=== PATIENT | male | born 1965 | race Caucasian/White ===

== ENCOUNTER → 2016-09-03 | Outpatient (CLI) | payer OTHER ==
--- NOTE | 2016-09-03 09:20 | MR ---
EXAMINATION TYPE: MR lumbar spine wo con DATE OF EXAM: 09/03/2016 8:14 AM COMPARISON: NONE HISTORY: spinal stenosis, back pain TECHNIQUE: Multiplanar, multisequence images of the lumbar spine were acquired. L1-L2: Normal disc appearance without desiccation. No herniation, protrusion or disc bulging. No ca nal stenosis is present. Foramina are patent bilaterally. L2-L3: Mild decreased signal ossified compatible degenerative disc disease. Posterior disc bulging wi th mild effacement of the ventral thecal sac. No evidence for herniation protrusion or central stenos is. Foramina are patent. L3-L4: Mild decreased signal ossified compatible degenerative disc disease. Posterior disc bulging wi th mild effacement of the ventral thecal sac. No evidence for herniation protrusion or central stenos is. Foramina are patent. L4-L5: Mild disc desiccation noted. Posterior disc bulge with greater left paracentral component wher e I cannot exclude a protrusion. Left lateral recess stenosis and mild left foraminal encroachment. N o evidence for central stenosis. L5-S1: Moderate to severe disc desiccation. Posterior disc bulge with annular tear. Effacement of the ventral thecal sac. No evidence for lateral recess stenosis or central stenosis. Facet joint arthrop athy resulting in right-sided foraminal encroachment. Lumbar segments are intact. No paraspinal masses are identified. Conus medullaris has a normal appe arance. Scattered ventral spondylosis. IMPRESSION: 1. Multilevel degenerative disc disease. 2. Multilevel disc bulging with the small left paracentral protrusion difficult to exclude at L4-5. S ee above.
== END | disposition home or self-care (01) ==
LOC: RADMRIMAIN 07:23
PROVIDERS: ATTEND Family Medicine
DX: M51.36 Other intervertebral disc degeneration, lumbar region (principal)
CPT/HCPCS: 72148

== ENCOUNTER → 2017-02-18 | Outpatient (CLI) | payer OTHER ==
--- NOTE | 2017-02-19 08:09 | CONS ---
DATE OF CONSULT: 02/18/17 HISTORY OF PRESENT ILLNESS/SLEEP WAKE EVALUATION: 51 -year-old gentleman has been evaluated in the sleep center for obstructive sleep apnea/hypopnea syndrome and significant excessive daytime sleepiness. The patient has been diagnosed with obstructive sleep apnea about 12 years ago in different institution. Since that time, he is on treatment with BIPAP. Last BIPAP titration done about two years. Presently he is on treatment with BIPAP at the pressure 14/7. For about the last nine months, he developed feeling of exertion even while has continued to use his BIPAP. No snoring with the machine. He wakes up from sleep up to five times with one episode of nocturia. The patient has restless leg symptoms. He also has positive history of kicking at night. In the morning he wakes up tired. Difficulties to pay attention, problems with memory, irritability, depression and anxiety. Lawrence sleep scale significantly increased to 12. SLEEP SCHEDULE: FALLING ASLEEP: DURING SLEEP: DURING THE DAY/WAKE STATE: Medications: 1. Buspirone. 2. Cymbalta. 3. Aspirin. 4. Metformin. 5. Amlodipine. PAST MEDICAL HISTORY: Significant for hypertension, anxiety, depression, diabetes mellitus. PAST SURGICAL HISTORY: Status post right inguinal hernia repair. History of multiple nasal fractures. FAMILY HISTORY: Hypertension, heart problems, hyperlipidemia, sleep apnea, snoring, headaches, cancer, diabetes, thyroid problem, restless legs. SOCIAL HISTORY: Negative for smoking. Alcohol consumption rarely. REVIEW OF SYSTEMS: Multiple awakenings from sleep five times, tiredness and sleepiness during the day. No fevers. No double vision. No recent chest pain. No shortness of breath. No abdominal pain. No bleeding episodes. No blood in urine. No seizure episodes. PHYSICAL EXAM: GENERAL: A pleasant 51 -year-old gentleman without any distress. VITAL SIGNS: BP 152/85, HR 94, RR 16, height 5 feet 10 inches, weight 265, body mass index 38.0. Neck 18 inches in circumferences. Temperature 98.0. Oxygen saturation on room air 94%. HEENT: PERRLA, EOMI. Evaluation of oropharynx shows extremely low position of soft palate. Mallampati 4. Restriction of nasal breathing significantly on both sides. NECK: Supple. No JVD. Thyroid is not palpable. LUNGS: Clear to auscultation and percussion. Good air exchange. No wheezing or rhonchi. HEART: S1, S2 regular. No murmurs, gallops or rubs. ABDOMEN: Obese. Soft, nontender. Bowel sounds are preset. No organomegaly appreciated. EXTREMITIES: No clubbing or cyanosis. SLAB POLISHER: Awake, alert and oriented times three. Cranial nerves 2 to 7 intact. There is no fasciculation or atrophy noted. No focal deficits observed. IMPRESSION: 1. History of obstructive sleep apnea/hypopnea syndrome for 12 years on treatment with BIPAP. The patient developed sleepiness and tiredness during the day. He has multiple awakenings from sleep while on BIPAP. Extremely low soft palate. Lawrence sleep scale 12. 2. Symptoms of restless legs and periodic limb movements with kicking at night. Periodic limb movements. 3. Obesity. 4. History of anxiety. 5. History of depression. 6. Hypertension. Blood pressure slightly increased today ( ) patient took his medication. 7. Diabetes mellitus. 8. Status post right inguinal hernia repair. 9. Status post multiple nasal fracture and presently very significant restriction of nasal breathing. PLAN: 1. BIPAP titration for reevaluation of effective BIPAP pressure at the present time also to check for periodic limb movements during the sleep. 2. Losing weight. 3. Sleep hygiene with regular time in bed for at least 8 hours. 4. No driving if patient feels any sleepiness. Patient is aware of civil and criminal liability for unsafe driving. Thank you for referring this patient for consultation. Sincerely, Jaspal Castellanos MD, PhD, FAASM Diplomat of [place] [employer]. Sleep Medicine Board by [place] [employer] [place] [employer] Typesetting Machine Operator/Tender of [facility] [place] [facility]
== END ==
LOC: SLEEP 14:41
PROVIDERS: ATTEND Internal Medicine
DX: G47.33 Obstructive sleep apnea (adult) (pediatric) (principal); E66.9 Obesity, unspecified; F41.9 Anxiety disorder, unspecified; F32.9 Major depressive disorder, single episode, unspecified; G47.61 Periodic limb movement disorder; I10 Essential (primary) hypertension; E11.9 Type 2 diabetes mellitus without complications; Z98.890 Other specified postprocedural states; Z79.899 Other long term (current) drug therapy; Z79.82 Long term (current) use of aspirin; Z79.84 Long term (current) use of oral hypoglycemic drugs
CPT/HCPCS: 99211

== ENCOUNTER → 2017-06-16 | Outpatient (CLI) | payer OTHER | END | disposition home or self-care (01) | LOC: SLEEP 16:06 | PROVIDERS: ATTEND Internal Medicine | DX: G47.33 Obstructive sleep apnea (adult) (pediatric) (principal) ==

== ENCOUNTER → 2017-07-24 | Outpatient (CLI) | payer OTHER ==
[2017-07-26 19:13] LABS: Estrogens Total 186 pg/mL
== END | disposition home or self-care (01) ==
LOC: LABWHC1 09:01
PROVIDERS: ATTEND Family Medicine
DX: R53.83 Other fatigue (principal); R79.89 Other specified abnormal findings of blood chemistry; E66.9 Obesity, unspecified; M79.1 Myalgia
CPT/HCPCS: 36415; 82397; 82533; 82672; 84144; 84305; 84402; 84403

== ENCOUNTER 2018-01-22 16:28 | Inpatient (IN) | payer OTHER ==
[2018-01-22] MEDS ORDERED: NITROGLYCERIN SL TABS 0.4 MG TAB SUBLINGUAL STA (16:53)
[2018-01-22] MEDS ORDERED: SODIUM CHLORIDE 0.9% 1,000 ML IV STA (16:53)
[2018-01-22 17:11] LABS: Basophils % (A) 0 %; Eosinophils # (A) 0.4 k/uL (0-0.7); Eosinophils % (A) 5 %; HCT 47.5 % (39.0-53.0); HGB 15.2 gm/dL (13.0-17.5); Lymphocytes # (A) 0.8 k/uL (1.0-4.8); Lymphocytes % (A) 12 %; MCH 26.2 pg (25.0-35.0); MCHC 32.1 g/dL (31.0-37.0); MCV 81.5 fL (80.0-100.0); Mean Platelet Volume 5.9; Monocytes # (A) 0.6 k/uL (0-1.0); Monocytes % (A) 8 %; Neutrophils # (A) 5.1 k/uL (1.3-7.7); Neutrophils % (A) 72 %; Platelet Count 260 k/uL (150-450); RBC 5.82 m/uL (4.30-5.90); WBC 7.1 k/uL (3.8-10.6)
[2018-01-22 17:23] LABS: ALT 50 U/L (21-72); AST 37 U/L (17-59); Albumin 4.3 g/dL (3.5-5.0); Alkaline Phosphatase 85 U/L (38-126); Amylase 54 U/L (30-110); Anion Gap 10 mmol/L; Blood Urea Nitrogen 19 mg/dL (9-20); Calcium 9.6 mg/dL (8.4-10.2); Carbon Dioxide 22 mmol/L (22-30); Chloride 107 mmol/L (98-107); Glucose 105 mg/dL (74-99); Lipase 50 U/L (23-300); Magnesium 1.8 mg/dL (1.6-2.3); Potassium 4.6 mmol/L (3.5-5.1); Sodium 139 mmol/L (137-145); Total Bilirubin 0.4 mg/dL (0.2-1.3); Total Protein 7.6 g/dL (6.3-8.2)
[2018-01-22] MEDS ORDERED: HEPARIN SODIUM,PORCINE 5,000 UNIT/ML 1 ML VIAL IV ONE (17:25)
[2018-01-22] MEDS ORDERED: NITROGLYCERIN OINT 1 INCH/GM PACKET TOPICAL STA (17:26)
[2018-01-22 17:29] LABS: D-Dimer 0.64 mg/L FEU (<0.60); Partial Thromboplastin Time 23.2 sec (22.0-30.0); Prothrombin Time 9.7 sec (9.0-12.0)
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
--- NOTE | 2018-01-22 17:36 | XR ---
EXAMINATION TYPE: XR chest 2V DATE OF EXAM: 01/22/2018 COMPARISON: NONE HISTORY: Chest pain TECHNIQUE: Frontal and lateral views of the chest are obtained. FINDINGS: There is no focal air space opacity, pleural effusion, or pneumothorax seen. The cardiac silhouette size is upper limits of normal. The osseous structures are intact. Mild multilevel degen erative changes of the thoracic spine are noted. IMPRESSION: No acute cardiopulmonary process.
[2018-01-22] MEDS: HEPARIN SOD,PORK IN 0.45% NACL 25,000 UNIT in 0.45% NACL 1 500ML.BAG IV SCH (17:49)
[2018-01-22 17:53] LABS: Creatine Kinase MB 1.3 ng/mL (0.0-2.4)
[2018-01-22 17:55] LABS: Troponin I 0.04 ng/mL (0.000-0.034)
--- NOTE | 2018-01-22 18:33 | CT ---
EXAMINATION TYPE: CT angio chest DATE OF EXAM: 01/22/2018 COMPARISON: NONE HISTORY: Mid chest pain since last night. CT DLP: 517.4 mGycm. Automated Exposure Control for Dose Reduction was Utilized. CONTRAST: CTA scan of the thorax is performed with IV Contrast, patient injected with 59 mL of Isovue 370, pulm onary embolism protocol. MIP Images are created on CT scanner and reviewed. FINDINGS: LUNGS: There is minimal bibasilar subsegmental dependent atelectasis. Otherwise the lungs are grossly clear, there is no concerning parenchymal mass or nodule identified. There is no pleural effusion or pneumothorax seen. The tracheobronchial tree is patent. MEDIASTINUM: There is satisfactory enhancement of the pulmonary artery and its branches, there is no CT evidence for pulmonary embolism. Numerous mediastinal lymph nodes and hilar lymph nodes are upper limits of normal measuring up to 1.0 cm in short axis each. No cardiomegaly or pericardial effusion i s seen. Mild coronary artery calcifications are noted. Main pulmonary artery and ascending thoracic a eliot are within normal limits of size. OTHER: There is incidental note of splenomegaly as the spleen measures 16.2 cm in longitudinal dimens ion. Moderate multilevel degenerative changes of the thoracic spine are noted. IMPRESSION: 1. No evidence of pulmonary embolus. 2. Numerous mediastinal and hilar lymph nodes that are upper limits of normal. These could be reactiv e in the recent event of postinflammatory or postinfectious process, however correlation with serum l aboratory values is recommended to exclude lymphoproliferative disorder and additionally short-term f ollow-up could be performed to ensure resolution of the mediastinal adenopathy. 3. Bibasilar atelectasis with no focal consolidation to suggest pneumonia.
[2018-01-22] MEDS ORDERED: NITROGLYCERIN SL TABS 0.4 MG TAB SUBLINGUAL PRN (19:12)
[2018-01-22 20:36] LABS: Glucose,Whole Blood 97 mg/dL (75-99)
[2018-01-22] MEDS: INSULIN ASPART 100 UNIT/ML 1 ML 10 ML VIAL SQ SCH (20:51)
[2018-01-22] MEDS: DULoxetine HCL 60 MG CAPSULE.DR PO SCH (20:53)
[2018-01-22] MEDS: busPIRone HCl 5 MG TAB PO SCH (20:53)
[2018-01-22] MEDS: metFORMIN 500 MG TAB PO SCH (20:53)
[2018-01-23 00:47] LABS: Creatine Kinase MB 4.2 ng/mL (0.0-2.4)
[2018-01-23 00:48] LABS: Troponin I 0.222 ng/mL (0.000-0.034)
[2018-01-23 05:26] LABS: Glucose,Whole Blood 117 mg/dL (75-99)
[2018-01-23] MEDS: INSULIN ASPART 100 UNIT/ML 1 ML 10 ML VIAL SQ SCH ×4 (05:41→22:42)
[2018-01-23 06:40] LABS: Cholesterol 187 mg/dL (<200); HDL Cholesterol 29 mg/dL (40-60); Triglycerides 428 mg/dL (<150)
[2018-01-23 07:04] LABS: Creatine Kinase MB 5.8 ng/mL (0.0-2.4); Troponin I 0.255 ng/mL (0.000-0.034)
[2018-01-23] MEDS ORDERED: HEPARIN SODIUM,PORCINE 5,000 UNIT/ML 1 ML VIAL IV PRN (08:34)
[2018-01-23] MEDS ORDERED: ASPIRIN 325 MG TAB PO SCH (09:00)
[2018-01-23] MEDS ORDERED: amLODIPine 10 MG TAB PO SCH (09:00)
[2018-01-23] MEDS ORDERED: NON-FORMULARY DRUG (Aspirin Ec 81 MG) PO SCH (09:00)
[2018-01-23] MEDS ORDERED: ASPIRIN 81 MG PO SCH (09:00)
[2018-01-23] MEDS ORDERED: NITROGLYCERIN SL TABS 0.4 MG TAB SUBLINGUAL PRN ×2 (09:27→13:26)
[2018-01-23] MEDS ORDERED: SODIUM CHLORIDE 0.9% 1,000 ML in EMPTY BAG 1 BAG IV ONE (09:27)
[2018-01-23] MEDS ORDERED: ALPRAZolam 0.5 MG TAB PO PRN (09:27)
[2018-01-23] MEDS ORDERED: ASPIRIN 325 MG TAB PO STA (09:29)
[2018-01-23] MEDS ORDERED: ATORVASTATIN 80 MG TAB PO STA (09:30)
[2018-01-23] MEDS: DULoxetine HCL 30 MG CAPSULE.DR PO SCH (09:35)
[2018-01-23] MEDS: busPIRone HCl 5 MG TAB PO SCH ×2 (09:35→20:31)
--- NOTE | 2018-01-23 09:35 | P.PN ---
Progress Note - Text this is an addendum to the dictated cardiology consultation. The patient presents with symptoms of chest discomfort radiating to the left arm associated with diaphoresis according with physical activity. the patient has a history of diabetes, hypertension. He has no prior history of documented CAD and has a history of paroxysmal atrial fibrillation and has been followed by Dr. Baker in the past. His EKG showed dynamic ST segment depression on the lateral leads during the chest pain and he has mild troponin elevation. He is pain-free at this time. the patient presents with symptoms consistent with new onset angina pectoris and his lab data is consistent with non-STEMI. I have recommended to proceed with cardiac catheterization and angioplasty if needed. The rationale behind the procedure, and the risk and complications were discussed with him and his . depending on his progress further recommendations will be made . thank you for this consult we will follow with you.
--- NOTE | 2018-01-23 09:38 | P.CRDCN ---
History of Present Illness History of present illness: Mr. Bo is a pleasant 52-year-old male past medical history significant for diabetes, hypertension, paroxysmal atrial fibrillation and obesity. He follows with Dr. Duncan in the office. We have been asked to see him in consultation for symptoms of chest pain. He states he started feeling mild chest discomfort around approximately Wednesday of last week. The symptoms at that time were vague. Yesterday he felt a much more intense pain in the mid- sternal region that felt like a horse was kicking him in the chest. The pain radiated to his left upper arm and into his left neck. The pain lasted for approximately 15 minutes prior to arrival. The symptoms started yesterday with exertion while doing activities around the house. His symptoms subsided with rest. He denies palpitations, vomiting, diaphoresis or dizziness. He denies PND or orhopnea. He has had reoccurrence of chest pain this morning. Repeat EKG while having chest pain was unremarkable. EKG on arrival reveals sinus mechanism with ST in anterior-lateral leads, improvement on repeat EKG this morning. Chest xray negative for an acute cardiopulmonary process. Laboratory data reviewed, hemoglobin 15.2, platelets 260, d-dimer 0.64, sodium 139, potassium 4.6, creatinine 0.9, magnesium 1.8, troponin 0.04, 0.222, 0.255 with elevated CK-MBs respectively. Current cardiac medications include Norvasc 10 mg daily, Rythmol 150 mg when necessary and he feels palpitations indicative of atrial fibrillation, aspirin 81 mg daily. Her last office note he also takes some/HCTZ. He states he does take this and forgot to mention yesterday when obtaining his home medications. Old records were reviewed from the office and revealed preserved LV systolic function the most recent echocardiogram in 2011. He does have evidence of nonspecific upsloping ST depression noted in the lateral leads EKG May 2017. Review of Systems At the time of my exam: CONSTITUTIONAL: Denies fever. Denies chills. EYES: Denies blurred vision. Denies vision changes. Denies eye pain. EARS, NOSE, MOUTH & THROAT: Denies headache. Denies sore throat. Denies ear pain. CARDIOVASCULAR: Complains of chest pain. Denies shortness of breath. Denies orthopnea. Denies PND. Denies palpitations. RESPIRATORY: Denies cough. GASTROINTESTINAL: Denies abdominal pain. Denies diarrhea. Denies constipation. Denies nausea. Denies vomiting. MUSCULOSKELETAL: Denies myalgias. INTEGUMENTARY: Denies pruitis. Denies rash. NEUROLOGIC: Denies numbness. Denies tingling. Denies weakness. PSYCHIATRIC: Denies anxiety. Denies depression. ENDOCRINE: Denies fatigue. Denies weight change. Denies polydipsia. Denies polyurina. GENITOURINARY: Denies burning, hematuria or urgency with micturation. HEMATOLOGIC: Denies history of anemia. Denies bleeding. Past Medical History Past Medical History: Atrial Fibrillation, Diabetes Mellitus Additional Past Medical History / Comment(s): tachycardia, kidney stones History of Any Multi-Drug Resistant Organisms: None Reported Past Surgical History: Back Surgery, Hernia Repair Past Psychological History: No Psychological Hx Reported Smoking Status: Never smoker Past Alcohol Use History: None Reported Past Drug Use History: None Reported Medications and Allergies Home Medications Medication Instructions Recorded Confirmed Type Aspirin EC [Ecotrin Low Dose] 81 mg PO DAILY 01/22/18 01/22/18 History DULoxetine HCL [Cymbalta] 30 mg PO QAM 01/22/18 01/22/18 History DULoxetine HCL [Cymbalta] 60 mg PO HS 01/22/18 01/22/18 History amLODIPine BESYLATE [Norvasc] 10 mg PO DAILY 01/22/18 01/22/18 History busPIRone HCL 5 mg PO BID 01/22/18 01/22/18 History metFORMIN HCL [Glucophage] 500 mg PO BID 01/22/18 01/22/18 History Allergies Allergy/AdvReac Type Severity Reaction Status Date / Time No Known Allergies Allergy Verified 01/22/18 17:14 Physical Exam Vitals: Vital Signs Temp Pulse Pulse Resp BP BP Pulse Ox 01/23/18 08:15 98.3 F 87 18 131/81 100 01/23/18 03:49 98.9 F 84 18 118/76 96 01/23/18 03:46 86 18 01/23/18 00:00 98.2 F 86 18 141/80 95 01/22/18 19:27 98.4 F 103 H 18 136/79 94 L 01/22/18 19:12 94 L 01/22/18 17:37 96 18 147/89 97 01/22/18 16:32 98.1 F 105 H 20 170/99 99 Intake and Output 01/22/18 01/23/18 01/23/18 22:59 06:59 14:59 Intake Total 80 160.365 181.952 Output Total 175 350 Balance -95 -189.635 181.952 Intake: Intake, IV Titration 80 160.365 181.952 Amount Heparin Sod,Pork in 0.45% 40 160.365 181.952 NaCl 25,000 unit In 0.45 % NaCl 1 500ml.bag @ 8.7 UNITS/KG/HR 19.88 mls/hr IV .Q24H THOR Rx#: [id number] Sodium Chloride 0.9% 1, 40 000 ml @ 20 mls/hr IV . Q24H STA Rx#:[id number] Output: Urine 175 350 Other: Voiding Method Toilet Toilet Urinal Urinal Weight 114 kg 115.3 kg Blood pressure 131/81 heart rate 87 afebrile maintaining oxygen saturation GENERAL: This is a 52-year-old male in no apparent distress at the time of my examination. HEENT: Head is atraumatic, normocephalic. Pupils are equal, round. Sclerae anicteric. Conjunctivae are clear. Mucous membranes of the mouth are moist. Neck is supple. There is no jugular venous distention. No carotid bruit is heard. LUNGS: Clear to auscultation no wheezes, rales or rhonchi. No chest wall tenderness is noted on palpation or with deep breathing. HEART: Regular rate and rhythm without murmurs, rubs or gallops. S1 and S2 heard. ABDOMEN: Soft, nontender. Bowel sounds are heard. No organomegaly noted. EXTREMITIES: No evidence of peripheral edema and no calf tenderness noted. VASCULAR: Radial and dorsalis pedis pulses palpated, no evidence of clubbing. NEUROLOGIC: Patient is awake, alert and oriented x3. Results 01/22/18 17:00 01/22/18 17:00 Cardiac Enzymes 01/22/18 01/22/18 01/22/18 Range/Units 17:00 17:00 23:45 AST 37 (17-59) U/L CK-MB (CK-2) 1.3 4.2 H* (0.0-2.4) ng/mL Troponin I 0.040 H* 0.222 H* (0.000-0.034) ng/mL 01/23/18 Range/Units 05:22 AST (17-59) U/L CK-MB (CK-2) 5.8 H* (0.0-2.4) ng/mL Troponin I 0.255 H* (0.000-0.034) ng/mL Coagulation 01/22/18 01/22/18 01/23/18 Range/Units 17:00 23:45 07:43 PT 9.7 (9.0-12.0) sec APTT 23.2 25.6 27.6 (22.0-30.0) sec Lipids 01/23/18 Range/Units 05:22 Triglycerides 428 H (<150) mg/dL Cholesterol 187 (<200) mg/dL HDL Cholesterol 29 L (40-60) mg/dL CBC 01/22/18 Range/Units 17:00 WBC 7.1 (3.8-10.6) k/uL RBC 5.82 (4.30-5.90) m/uL Hgb 15.2 (13.0-17.5) gm/dL Hct 47.5 (39.0-53.0) % Plt Count 260 (150-450) k/uL Comprehensive Metabolic Panel 01/22/18 Range/Units 17:00 Sodium 139 (137-145) mmol/L Potassium 4.6 (3.5-5.1) mmol/L Chloride 107 (98-107) mmol/L Carbon Dioxide 22 (22-30) mmol/L BUN 19 (9-20) mg/dL Creatinine 0.90 (0.66-1.25) mg/dL Glucose 105 H (74-99) mg/dL Calcium 9.6 (8.4-10.2) mg/dL AST 37 (17-59) U/L ALT 50 (21-72) U/L Alkaline Phosphatase 85 (38-126) U/L Total Protein 7.6 (6.3-8.2) g/dL Albumin 4.3 (3.5-5.0) g/dL Current Medications Generic Name Dose Route Start Last Admin Trade Name Freq PRN Reason Stop Dose Admin Amlodipine Besylate 10 mg 01/23/18 09:00 Norvasc PO DAILY THOR Aspirin 325 mg 01/23/18 09:00 Aspirin PO DAILY [facility] Buspirone HCl 5 mg 01/22/18 21:00 01/22/18 20:53 Buspar PO 5 mg BID THOR Administration Duloxetine HCl 60 mg 01/22/18 21:00 01/22/18 20:53 Cymbalta PO 60 mg HS THOR Administration Duloxetine HCl 30 mg 01/23/18 09:00 Cymbalta PO QAM [facility] Heparin Sodium (Porcine) 0 unit 01/23/18 08:34 Heparin IV PER PROTOCOL PRN Low PTT Protocol Sodium Chloride 1,000 mls @ 20 mls/hr 01/22/18 16:53 01/22/18 17:00 Saline 0.9% IV 01/23/18 16:52 20 mls/hr .Q24H STA Administration Heparin Sodium/Sodium Chloride 500 mls @ 19.88 mls/hr 01/22/18 17:30 08:31 25,000 unit/ Sodium Chloride IV 15 units/kg/hr .Q24H THOR 34.29 mls/hr Titration Protocol 8.7 UNITS/KG/HR Insulin Aspart 0 unit 01/22/18 21:00 01/23/18 05:41 Novolog SQ Not Given ACHS [facility] Protocol Metformin HCl 500 mg 01/22/18 21:00 01/22/18 20:53 Glucophage PO 500 mg BID THOR Administration Nitroglycerin 0.4 mg 01/22/18 19:12 Nitrostat SUBLINGUAL Q5M PRN Chest Pain Intake and Output 01/22/18 01/23/18 01/23/18 22:59 06:59 14:59 Intake Total 80 160.365 181.952 Output Total 175 350 Balance -95 -189.635 181.952 Intake: Intake, IV Titration 80 160.365 181.952 Amount Heparin Sod,Pork in 0.45% 40 160.365 181.952 NaCl 25,000 unit In 0.45 % NaCl 1 500ml.bag @ 8.7 UNITS/KG/HR 19.88 mls/hr IV .Q24H THOR Rx#: [id number] Sodium Chloride 0.9% 1, 40 000 ml @ 20 mls/hr IV . Q24H STA Rx#:[id number] Output: Urine 175 350 Other: Voiding Method Toilet Toilet Urinal Urinal Weight 114 kg 115.3 kg 01/22/18 17:00 01/22/18 17:00 Assessment and Plan Assessment: ASSESSMENT Acute unstable angina with EKG abnormalities Non-ST elevation VA Hypertension History of atrial fibrillation currently maintaining sinus mechanism PLAN Obtain 2-D echocardiogram and Doppler study to assess cardiac structure and function. We recommend he undergo cardiac catheterization to further assess coronary arteries. I have discussed the risks, benefits and alternative therapies for the above-mentioned procedure and for both sedation/analgesia as well as necessary blood product administration, if indicated, as they pertain to this patient. The patient has indicated understanding and acceptance of the risks and procedures discussed. His is at the bedside and questions have been answered appropriately. He is agreeable to move forward with above stated procedure. Further recommendations to follow based on clinical course. Thank you kindly for this consultation. Nurse Practitioner note has been reviewed, I agree with a documented findings and plan of care. Patient was seen and examined.
[2018-01-23] MEDS: metFORMIN 500 MG TAB PO SCH (09:43)
[2018-01-23 11:13] LABS: Glucose,Whole Blood 105 mg/dL (75-99)
[2018-01-23] MEDS ORDERED: TEMAZEPAM 15 MG CAP PO PRN (11:27)
[2018-01-23] MEDS: HEPARIN SOD,PORK IN 0.45% NACL 25,000 UNIT in 0.45% NACL 1 500ML.BAG IV SCH (11:29)
[2018-01-23] MEDS ORDERED: LIDOCAINE 1% INJ 10MG/ML (20 ML MDV) ONE (12:01)
[2018-01-23] MEDS ORDERED: VERAPAMIL 2.5 MG/ML 2 ML AMP ONE (12:02)
[2018-01-23] MEDS ORDERED: fentaNYL (PF) 50 MCG/ML 2 ML AMP ONE (12:02)
[2018-01-23] MEDS ORDERED: diphenhydrAMINE 50 MG/ML 1 ML VIAL ONE (12:02)
[2018-01-23] MEDS ORDERED: IV FLUID CONTINUATION 1,000 ML IV ONE (12:28)
[2018-01-23] MEDS ORDERED: fentaNYL (PF) 50 MCG/ML 2 ML AMP IV ONE (12:30)
[2018-01-23] MEDS ORDERED: MIDAZOLAM 2 MG/2 ML VIAL ONE (12:35)
[2018-01-23] MEDS ORDERED: LIDOCAINE 1% INJ 10MG/ML (20 ML MDV) SQ ONE (12:35)
[2018-01-23] MEDS ORDERED: VERAPAMIL SYRINGE (5 MG/10 ML) INTRAARTER ONE (12:36)
[2018-01-23] MEDS ORDERED: MIDAZOLAM 2 MG/2 ML VIAL IV ONE (12:37)
[2018-01-23] MEDS ORDERED: BIVALIRUDIN BOLUS 250 MG/50 ML IV ONE (12:45)
[2018-01-23] MEDS ORDERED: BIVALIRUDIN 250 MG in SODIUM CHLORIDE 0.9% 50 ML IV ONE (12:46)
[2018-01-23] MEDS ORDERED: PRASUGREL 10 MG TAB ONE (12:47)
[2018-01-23] MEDS ORDERED: PRASUGREL 10 MG TAB PO ONE (12:47)
[2018-01-23] MEDS ORDERED: NITROGLYCERIN 1000MCG/10ML SYRINGE INTRACORON ONE (12:50)
[2018-01-23] MEDS ORDERED: IOPAMIDOL-370 125ML BTL INJ ONE (12:54)
--- NOTE | 2018-01-23 13:00 | HP ---
HISTORY AND PHYSICAL CHIEF COMPLAINT: Chest pain. HISTORY OF PRESENT ILLNESS: This 52-year-old gentleman with a past history of atrial fibrillation, history of diabetes, tachycardia, history of kidney stones, back surgery, DJD being followed by Dr. Rondon in the outpatient setting was complaining of chest pain which is felt in the anterior part of the chest, which was heavy in character, which was radiating to the both sides of the neck and both arms and the pain has been going on for at least a couple of days on and off and because of increasing pain 10 out of 10, the patient came to [facility] and was admitted for further evaluation and treatment. EKG showed normal sinus rhythm with ST changes and troponins were found to be elevated to 0.25 suggesting non-Q wave myocardial infarction. Patient also had a spiral CT scan of the chest also which showed no evidence of pulmonary embolus, but numerous mediastinal hilar lymphadenopathy and as well as possible bibasilar atelectasis also. There is no history of fever, rigors. No headache, loss of consciousness, seizures. PAST MEDICAL HISTORY: Atrial fibrillation, diabetes, tachycardia, history of kidney stones. MEDICATIONS: Prior to admission: 1. Glucophage 500 mg p.o. b.i.d. 2. Norvasc 10 mg p.o. daily. 3. Cymbalta 60 mg q.h.s. 4. Cymbalta 30 mg q.a.m. 5. Ecotrin 81 mg daily. 6. Buspirone 5 mg p.o. b.i.d. ALLERGIES: None. FAMILY HISTORY: No history of heart disease or strokes in family. SOCIAL HISTORY: No history of smoking. No history of alcohol intake. REVIEW OF SYSTEMS: ENT: No diminished hearing or vision. CARDIOVASCULAR: As mentioned earlier. RESPIRATORY: No cough or hemoptysis, otherwise as mentioned earlier. GI: No nausea. : No dysuria. NERVOUS SYSTEM: No numbness or weakness. ALLERGY/IMMUNOLOGY: No asthma. MUSCULOSKELETAL: As mentioned earlier. HEMATOLOGY: No history of anemia. ENDOCRINE: As mentioned earlier. CONSTITUTIONAL: As mentioned earlier. DERMATOLOGY: Negative. RHEUMATOLOGY: Negative. PSYCHIATRY: As mentioned earlier. PHYSICAL EXAMINATION: Alert and oriented x3. Pulse 91, blood pressure 120/77, respiration 18, temperature 98.2, pulse ox 98% on 2 L. HEENT: Conjunctivae normal. Oral mucosa moist. NECK: No jugular venous distention. No lymph node enlargement. CARDIOVASCULAR: S1, S2. RESPIRATORY: Breath sounds diminished in the bases. No rhonchi. No crackles. ABDOMEN: Soft, nontender. No mass palpable. LEGS: No edema, no swelling. NERVOUS SYSTEM: Higher function as mentioned. Moves all four limbs. No focal motor deficits. LYMPHATICS: No lymphadenopathy in the neck, axillae, groin. SKIN: No ulcer, rash, bleeding. LABS: CBC within normal. D-dimer is 0.64. Troponin 0.22 and 0.255. Triglycerides are 428. ASSESSMENT: 1. Acute non ST-segment elevation myocardial infarction with chest pain. 2. Troponin 0.255. 3. Hyperlipidemia, hypertriglyceridemia. 4. Atrial fibrillation paroxysmal. 5. ST-T changes in the EKG. 6. Diabetes mellitus type 2. 7. History of tachycardia. 8. History of nephrolithiasis. 9. History of back surgery. 10.History of hernia repair. RECOMMENDATION AND DISCUSSION: This 52-year-old gentleman who presented with multiple complications, will monitor the patient closely. Continue the current management and symptomatic treatment. Otherwise at this time I recommend continue with beta blockers antiplatelet agents and monitor electrolytes closely, monitor blood sugars closely. I would also recommend Cardiology consultation. Cardiology is planning cardiac consultation. Repeat labs will be ordered and symptomatic treatment provided. Further recommendations to follow. The patient also had minimal abnormal findings in the CT scan. Recommend close follow up as outpatient with Dr. Rondon in the outpatient setting. MMODL / IJN: [id number] /
[2018-01-23] MEDS ORDERED: IOPAMIDOL-370 100ML BTL INJ ONE (13:08)
[2018-01-23] MEDS ORDERED: RX INFO: IV CONTRAST WAS GIVEN 1 EACH MISC MISCELLANE PRN (13:26)
[2018-01-23] MEDS ORDERED: MAG HYDROX/AL HYDROX/SIMETH 30 ML CUP PO PRN (13:26)
[2018-01-23] MEDS ORDERED: ATROPINE SULFATE 0.1 MG/ML 10ML SYRINGE IV PRN (13:26)
[2018-01-23] MEDS ORDERED: SODIUM CHLORIDE 0.9% 1,000 ML IV SCH (13:30)
[2018-01-23] MEDS: HYDROcodone/APAP 5-325MG 1 EACH TAB PO PRN ×2 (15:30→22:43)
[2018-01-23 16:02] LABS: Appearance,Urine Clear (Clear); Bilirubin,Urine Negative (Negative); Blood,Urine Trace (Negative); Color,Urine Light Yellow; Glucose,Urine (UA) Negative (Negative); Ketones,Urine Negative (Negative); Leukocyte Esterase,Urine Negative (Negative); Mucus,Urine Rare /hpf; Nitrite,Urine Negative (Negative); Protein,Urine Negative (Negative); RBC,Urine 1 /hpf (0-5); Urobilinogen,Urine <2.0 mg/dL (<2.0); WBC,Urine <1 /hpf (0-5)
[2018-01-23 16:16] LABS: Glucose,Whole Blood 113 mg/dL (75-99)
--- NOTE | 2018-01-23 19:27 | CC ---
CARDIAC CATHETERIZATION REPORT Mr. Bo is a 52-year-old male with known history of diabetes, hypertension, hyperlipidemia and a family history of coronary artery disease who presented with new onset angina pectoris and evidence of non ST-segment elevation myocardial infarction. In view of that, recommendation was made regarding cardiac catheterization. The procedures as well as risks and complication were discussed with the patient who is in full understanding and agreement. PROCEDURE: Patient was brought to the cardiac laboratory engineer in a fasting state after receiving fentanyl and Benadryl and achieving moderate conscious sedated state. Using Xylocaine anesthesia and Seldinger technique, a 6-Palestinian sheath was introduced in the right radial artery. Selective right and left coronary angiography performed using 5-Palestinian 3 and half bend right and left Tru catheter. Multiple views of the coronary artery including hemiaxial views were obtained. Following that, angioplasty and stenting was performed. Following that, a 5-Palestinian tight pigtail catheter was introduced in his left ventricle and a 30 degree JOHNSON view of the left ventricle was obtained. Following that, catheter and sheaths were removed. Hemostasis was obtained with deployment of a TR band. There was no immediate complication. The patient was returned to his room in stable condition. CORONARY ANGIOGRAPHY: LEFT MAIN: This is a large-sized vessel bifurcating into the left circumflex, left anterior descending artery, left main coronary artery has no evidence of high-grade stenosis. LEFT ANTERIOR DESCENDING ARTERY: This is a large-sized vessel reaching toward the apex, tapers down distal third, gives rise to a moderately sized diagonal branch in mid segment. The proximal left anterior descending artery is about 30% plaque. There is mild intimal disease in mid segment with a plaque in the distal apical segment. LEFT CIRCUMFLEX: This is a large dominant vessel giving rise to 3 obtuse marginal branches. The third one is large in caliber. It has a branching point. The inferior branch has a long tubular lesion of 50-70%, distally the left PLV has a plaque in the distal segment of about 80%. The vessel, beyond that, is small in caliber. RIGHT CORONARY ARTERY: This is a small nondominant vessel tortuous. In the mid segment of the vessel, there is about a 70% to 80% plaque. The rest of the vessel has no high-grade stenosis. LEFT VENTRICULOGRAM: Left ventriculogram was performed in 30 degree JOHNSON view and revealed normal left ventricular size and systolic function. Ejection fraction 55-60%. There was no significant mitral regurgitation. HEMODYNAMICS: There was no gradient across the aortic valve. The left ventricle end-diastolic pressure was 20 mmHg. CONCLUSION: 1. Critical stenosis involving the proximal left circumflex. 2. Moderate disease involving the third obtuse marginal branch with moderate significant disease in the mid nondominant right coronary artery and mild to moderate disease in the left anterior descending coronary artery. 3. Preserved left ventricular size and systolic function. RECOMMENDATIONS: In view of findings and anatomy, I have recommend proceeding with angioplasty and stenting of the left circumflex. The procedure as well as risks and complications were discussed with the patient who is in full understanding and agreement. MMODL / IJN: [id number] /
--- NOTE | 2018-01-23 19:33 | PTCA ---
PERCUTANEOUSTRANS CORORONARY ANGIOGRAPHY Mr. Bo is a 52-year-old male with a history of hypertension, hyperlipidemia, diabetes mellitus, who presented with symptoms consistent with non ST-segment elevation myocardial infarction, underwent cardiac catheterization and was found to have critical stenosis involving the proximal left circumflex. In view of that, recommendation was made regarding angioplasty and stenting. The procedure, risks and complications were discussed with the patient who is in full understanding and agreement. PROCEDURE: A 6-Kiswahili 3 and half bend FL guiding catheter was introduced into the system. After cannulating the left main, a 0.014 balanced medium weight J-wire was advanced across the lesion, positioned distally. Then a 3.5 x 50 mm Xience Alpine stent was deployed. It was dilated at 16 atmospheres. Following that, the balloon was removed and a 4.0 x 12 mm NC Trek balloon was advanced and one inflation at 14 atmospheres was done. Following that, the balloon and guidewire were withdrawn back in the guiding catheter. Images were obtained and repeated. Those images revealed stable successful stenting. At that point, the guiding catheter, the balloon and the guidewire were removed and left ventriculogram was performed. Following that the catheter and sheaths were removed. Hemostasis was obtained with deployment of a TR band. There was no immediate complication. The patient was returned to his room in stable condition. Of note, he had chest discomfort and EKG changes with the inflation that resolved at the end of the procedure. He received Angiomax per protocol as well as oral loading dose off Effient. He also received intra-arterial verapamil. RESULTS: Successful stenting of the proximal left circumflex with reduction of stenosis from 99% to 0%. RECOMMENDATIONS: The patient will be continued on aspirin, Effient, and statin. Aggressive coronary risk factor modifications will be continued. Those findings and recommendations were discussed with the patient and his family who are in full understanding and agreement. Duration of procedure: 36 minutes. MMODL / IJN: [id number] /
[2018-01-23] MEDS: DULoxetine HCL 60 MG CAPSULE.DR PO SCH (20:31)
[2018-01-23] MEDS: METOPROLOL TARTRATE 25 MG TAB PO SCH (20:33)
[2018-01-23] MEDS ORDERED: ZOLPIDEM 5 MG TAB PO PRN (21:00)
[2018-01-23 21:23] LABS: Glucose,Whole Blood 105 mg/dL (75-99)
[2018-01-23] MEDS: ALPRAZolam 0.25 MG TAB PO PRN (22:46)
[2018-01-24 06:03] VITALS: RESP 18
[2018-01-24 06:25] LABS: Glucose,Whole Blood 144 mg/dL (75-99)
[2018-01-24] MEDS: INSULIN ASPART 100 UNIT/ML 1 ML 10 ML VIAL SQ SCH ×2 (07:12→12:24)
[2018-01-24 07:26] LABS: Anion Gap 9 mmol/L; Blood Urea Nitrogen 17 mg/dL (9-20); Carbon Dioxide 25 mmol/L (22-30); Chloride 104 mmol/L (98-107); Glucose 128 mg/dL (74-99); Potassium 4.2 mmol/L (3.5-5.1); Sodium 138 mmol/L (137-145)
[2018-01-24] MEDS ORDERED: PANTOPRAZOLE 40 MG TABLET PO SCH (07:30)
[2018-01-24] MEDS ORDERED: ATORVASTATIN 80 MG TAB PO SCH (09:00)
[2018-01-24] MEDS ORDERED: amLODIPine 5 MG TAB PO SCH (09:00)
[2018-01-24] MEDS ORDERED: ASPIRIN 81 MG PO SCH ×2 (09:00)
[2018-01-24] MEDS ORDERED: LOSARTAN 25 MG TAB PO SCH (09:00)
[2018-01-24] MEDS ORDERED: PRASUGREL 10 MG TAB PO SCH (09:00)
[2018-01-24] MEDS: busPIRone HCl 5 MG TAB PO SCH (09:11)
[2018-01-24] MEDS: DULoxetine HCL 30 MG CAPSULE.DR PO SCH (09:12)
[2018-01-24] MEDS: METOPROLOL TARTRATE 25 MG TAB PO SCH (09:12)
[2018-01-24 10:37] VITALS: BMI 36.6
--- NOTE | 2018-01-24 10:45 | ECHOF ---
Referral Reason: MEASUREMENTS -------- HEIGHT: 180.3 cm WEIGHT: 118.8 kg BP: 132/76 RVIDd: 3.3 cm (< 3.3) IVSd: 1.6 cm (0.6 - 1.1) LVIDd: 3.6 cm (3.9 - 5.3) LVPWd: 1.8 cm (0.6 - 1.1) IVSs: 1.7 cm LVIDs: 2.7 cm LVPWs: 2.1 cm LAESV Index (A-L): 14.71 ml/m Ao Diam: 3.4 cm (2.0 - 3.7) AV Cusp: 2.3 cm (1.5 - 2.6) LA Diam: 3.9 cm (2.7 - 3.8) MV EXCURSION: 19.783 mm (> 18.000) MV EF SLOPE: 117 mm/s (70 - 150) EPSS: 1.0 cm MV E Olegario: 0.81 m/s MV DecT: 189 ms MV A Olegario: 0.70 m/s MV E/A Ratio: 1.15 RAP: 5.00 mmHg RVSP: 14.52 mmHg FINDINGS -------- Sinus rhythm. This was a technically good study. The left ventricular size is normal. There is moderate concentric left ventricular hypertrophy. O verall left ventricular systolic function is low-normal with, an EF between 50 - 55 %. The right ventricle is normal in size and function. Normal LA size by volume 22+/-6 ml/m2. The right atrium is normal in size. Aortic valve is trileaflet and is mildly thickened. The mitral valve leaflets are mildly thickened. There is trace mitral regurgitation. Trace tricuspid regurgitation present. The right ventricular systolic pressure, as measured by Dopp ler, is 14.52mmHg. Pulmonic valve appears structurally normal. The aortic root size is normal. Normal inferior vena cava with normal inspiratory collapse consistent with estimated right atrial pre ssure of 5 mmHg. The pericardium is normal. CONCLUSIONS -------- 1. Sinus rhythm. 2. This was a technically good study. 3. The left ventricular size is normal. 4. There is moderate concentric left ventricular hypertrophy. 5. Overall left ventricular systolic function is low-normal with, an EF between 50 - 55 %. 6. The right ventricle is normal in size and function. 7. Normal LA size by volume 22+/-6 ml/m2. 8. The right atrium is normal in size. 9. Aortic valve is trileaflet and is mildly thickened. 10. The mitral valve leaflets are mildly thickened. 11. There is trace mitral regurgitation. 12. Trace tricuspid regurgitation present. 13. The right ventricular systolic pressure, as measured by Doppler, is 14.52mmHg. 14. Pulmonic valve appears structurally normal. 15. The aortic root size is normal. 16. Normal inferior vena cava with normal inspiratory collapse consistent with estimated right atrial pressure of 5 mmHg. 17. The pericardium is normal. [employer] FIRM MANAGER: Jennifer Cullen RDCS
[2018-01-24] MEDS: ALPRAZolam 0.25 MG TAB PO PRN (10:48)
[2018-01-24] MEDS: HYDROcodone/APAP 5-325MG 1 EACH TAB PO PRN (10:48)
[2018-01-24 11:40] LABS: Glucose,Whole Blood 98 mg/dL (75-99)
--- NOTE | 2018-01-24 12:22 | PN ---
PROGRESS NOTE Mr. Bo is a 52-year-old male who presented with non ST-segment elevation myocardial infarction, underwent coronary angiography and stenting of the proximal left circumflex. He is doing well this morning. He denies any chest pain. His breathing has been stable. He denies any dizziness or palpitation. He is ambulating without difficulty. He continued be on aspirin once a day, Effient 10 mg daily, Lipitor 80 mg daily, Cozaar 25 mg daily, metoprolol tartrate 25 mg twice a day. PHYSICAL EXAMINATION: Blood pressure 132/70 with a heart rate in the 80s. LUNGS: Clear. HEART: Regular rate and rhythm. S1, S2. No S3. No rub. ABDOMEN: Soft, nontender. EXTREMITIES: No edema, right radial pulse is intact. LAB DATA: Revealed BUN and creatinine 17 and 0.9, potassium 4.2. EKG, no acute changes. His echocardiogram revealed preserved ventricular size and systolic function with no significant valvular disease. IMPRESSION: 1. Status post non-STEMI with stenting of the proximal left circumflex. 2. Hypertension. 3. Hyperlipidemia. 4. Diabetes mellitus. RECOMMENDATION: Patient should be able to be discharged home today and followed in one week. MMODL / IJN: [id number] /
[2018-01-24 13:56] VITALS: BP 133/82; PULSE 76; TEMP 97.2
--- NOTE | 2018-01-24 15:19 | DS ---
DISCHARGE SUMMARY DATE OF SERVICE: 01/24/2018 FINAL DIAGNOSIS: 1. Chest pain, acute non ST-segment myocardial infarction status post cardiac cath and stenting of circumflex. 2. Troponin 0.255. 3. Hyperlipidemia. 4. Hypertriglyceridemia. 5. Atrial fibrillation paroxysmal. 6. ST-T wave changes on the EKG. 7. Diabetes type 2. 8. History of tachycardia. 9. History of nephrolithiasis. 10.History of back surgery. 11.History of hernia repair. DISCHARGE DISPOSITION: The patient is being discharged in stable condition with guarded prognosis. Cardiology cleared the patient for discharge. HISTORY OF PRESENT ILLNESS: This 52-year-old gentleman with a past medical history of multiple medical problems as mentioned earlier, being followed by Dr. Rondon in the outpatient setting was admitted to the hospital with chest pain. The possibility of acute non ST-segment elevation myocardial infarction considered. Troponin is mildly elevated and Cardiology performed cardiac catheterization and cardiac stenting of circumflex. On exam, vitals are stable is stable. Cardiac system: S1, S2. Abdomen soft. Nervous system: No focal deficits. The patient is being discharged in stable condition with guarded prognosis with the following advice and medications: 1. Diet is cardiac diet. 2. Activity limited until followup. 3. Follow up with Dr. Rondon in 2-3 days. 4. Follow up with the lime hide inspector as recommended. DISCHARGE MEDICATIONS: 1. Ecotrin 81 mg p.o. daily. 2. Buspirone 5 mg p.o. b.i.d. 3. Cymbalta 30 mg q.a.m. and 60 mg q.h.s. 4. Glucophage 500 mg p.o. b.i.d. 5. Norvasc 5 mg p.o. daily. 6. Lipitor 80 mg p.o. daily. 7. Cozaar 25 mg p.o. daily. 8. Metoprolol 25 mg p.o. b.i.d. 9. Nitrostat 0.4 mg p.r.n. 10.Effient 10 mg p.o. daily. Once again the patient is being discharged in stable condition with guarded prognosis. MMODL / IJN: [id number] /
== END 2018-01-24 14:35 | disposition home or self-care (01) | DRG 247 ==
LOC: EC 16:28 → 6SEL 19:12
PROVIDERS: ADMIT Hospitalist; ATTEND Hospitalist
PROC: B2111ZZ Fluoroscopy of Multiple Coronary Arteries using Low Osmolar Contrast (ICD-10-PCS; 2018-01-23)
PROC: B2151ZZ Fluoroscopy of Left Heart using Low Osmolar Contrast (ICD-10-PCS; 2018-01-23)
PROC: 027034Z Dilation of Coronary Artery, One Artery with Drug-eluting Intraluminal Device, Percutaneous Approach (ICD-10-PCS; principal; 2018-01-23 12:00)
PROC: 4A023N7 Measurement of Cardiac Sampling and Pressure, Left Heart, Percutaneous Approach (ICD-10-PCS; 2018-01-23 12:00)
DX: I21.4 Non-ST elevation (NSTEMI) myocardial infarction (principal); E11.9 Type 2 diabetes mellitus without complications; E78.1 Pure hyperglyceridemia; E78.5 Hyperlipidemia, unspecified; I10 Essential (primary) hypertension; I48.0 Paroxysmal atrial fibrillation; E66.9 Obesity, unspecified; M19.90 Unspecified osteoarthritis, unspecified site; Z79.84 Long term (current) use of oral hypoglycemic drugs; Z79.82 Long term (current) use of aspirin; Z79.899 Other long term (current) drug therapy; Z87.442 Personal history of urinary calculi; Z68.36 Body mass index [BMI] 36.0-36.9, adult; Z82.49 Family history of ischemic heart disease and other diseases of the circulatory system
CPT/HCPCS: 36415; 71046; 71275; 80048; 80053; 80061; 81001; 82150; 82550; 82553; 83690; 83735; 83880; 84484; 85025; 85347; 85379; 85610; 85730; 93005; 93306; 93458; 96365; 96366; 96376; 99291

== ENCOUNTER 2018-02-08 09:31 | Observation (INO) | payer OTHER ==
[2018-02-08] MEDS ORDERED: ASPIRIN 81 MG PO STA (09:55)
[2018-02-08] MEDS ORDERED: NITROGLYCERIN OINT 1 INCH/GM PACKET TOPICAL STA (09:55)
--- NOTE | 2018-02-08 09:58 | ED ---
General Adult HPI - General Chief complaint: Chest Pain Stated complaint: chest pain Time Seen by Provider: 02/08/18 09:40 Source: patient, family, RN notes reviewed Mode of arrival: ambulatory Limitations: no limitations - History of Present Illness Initial comments: Patient is a pleasant 52-year-old male presenting to the emergency Department with complaints of chest discomfort. Onset of symptoms was last night. Symptoms have been mostly steady. Discomfort feels like tightness in the left sternal region. No radiation. Discomfort has been mostly mild and is currently rated 2/10. Discomfort does feel similar to previous heart problems however not as intense. No associated dyspnea, nausea, or diaphoresis. Patient does have a history of atrial fibrillation and did have mild palpitations last night. Patient did have a stent placed just 2 weeks ago. - Related Data Home Medications Medication Instructions Recorded Confirmed Aspirin EC [Ecotrin Low Dose] 81 mg PO DAILY 01/22/18 02/08/18 DULoxetine HCL [Cymbalta] 30 mg PO QAM 01/22/18 02/08/18 DULoxetine HCL [Cymbalta] 60 mg PO HS 01/22/18 02/08/18 busPIRone HCL 5 mg PO BID 01/22/18 02/08/18 metFORMIN HCL [Glucophage] 1,000 mg PO BID 01/22/18 02/08/18 Aspirin EC [Ecotrin Low Dose] 324 mg PO ONCE 02/08/18 02/08/18 Previous Rx's Medication Instructions Recorded Atorvastatin [Lipitor] 80 mg PO DAILY #90 tab 01/24/18 Losartan [Cozaar] 25 mg PO DAILY #90 tab 01/24/18 Metoprolol Tartrate [Lopressor] 25 mg PO BID #180 tab 01/24/18 Nitroglycerin Sl Tabs [Nitrostat] 0.4 mg SUBLINGUAL Q5M PRN #25 tab 01/24/18 Prasugrel [Effient] 10 mg PO DAILY #90 tab 01/24/18 amLODIPine [Norvasc] 5 mg PO DAILY #90 tab 01/24/18 Allergies Allergy/AdvReac Type Severity Reaction Status Date / Time No Known Allergies Allergy Verified 02/08/18 10:35 Review of Systems ROS Statement: Those systems with pertinent positive or pertinent negative responses have been documented in the HPI. ROS Other: All systems not noted in ROS Statement are negative. Constitutional: Denies: fever Eyes: Denies: eye pain ENT: Denies: ear pain Respiratory: Denies: cough, dyspnea Cardiovascular: Reports: chest pain, palpitations Endocrine: Denies: fatigue Gastrointestinal: Denies: abdominal pain Genitourinary: Denies: dysuria Musculoskeletal: Denies: back pain Skin: Denies: rash Neurological: Denies: weakness Past Medical History Past Medical History: Atrial Fibrillation, Diabetes Mellitus Additional Past Medical History / Comment(s): tachycardia, kidney stones History of Any Multi-Drug Resistant Organisms: None Reported Past Surgical History: Back Surgery, Heart Catheterization With Stent, Hernia Repair Past Psychological History: No Psychological Hx Reported Smoking Status: Never smoker Past Alcohol Use History: None Reported Past Drug Use History: None Reported General Exam Limitations: no limitations General appearance: alert, in no apparent distress Head exam: Present: atraumatic Eye exam: Present: normal appearance, PERRL ENT exam: Present: normal oropharynx Neck exam: Present: normal inspection Respiratory exam: Present: normal lung sounds bilaterally. Absent: chest wall tenderness Cardiovascular Exam: Present: regular rate, normal rhythm, normal heart sounds Expanded Peripheral pulses: 2+: Radial (R), Radial (L), Posterior Tibialis (R), Posterior Tibialis (L) GI/Abdominal exam: Present: soft. Absent: tenderness Extremities exam: Present: normal inspection. Absent: pedal edema, calf tenderness Neurological exam: Present: alert Psychiatric exam: Present: normal affect, normal mood Skin exam: Present: normal color Course Vital Signs 02/08/18 02/08/18 02/08/18 09:33 10:45 11:48 Temperature 98.2 F Pulse Rate 76 68 68 Respiratory 16 18 18 Rate Blood Pressure 145/88 141/81 132/65 O2 Sat by Pulse 98 98 98 Oximetry EKG Findings - EKG Comments: EKG Findings:: Normal sinus rhythm 72. VA 142. QRS 90. QT 384. QTC 420. Normal axis. Normal QRS. Inferior T wave inversion. Medical Decision Making - Medical Decision Making Patient reevaluated and resting comfortably in bed. Patient updated on results and plan. Dr. Alvarado has been paged for admission for Dr. Cordero. - Lab Data Result diagrams: 02/08/18 09:50 02/08/18 09:50 Lab Results 08/14/18 08/14/18 08/14/18 Range/Units 09:50 09:50 09:50 WBC 4.6 (3.8-10.6) k/uL RBC 5.81 (4.30-5.90) m/uL Hgb 15.7 (13.0-17.5) gm/dL Hct 47.2 (39.0-53.0) % MCV 81.2 (80.0-100.0) fL MCH 27.0 (25.0-35.0) pg MCHC 33.2 (31.0-37.0) g/dL RDW 15.0 (11.5-15.5) % Plt Count 269 (150-450) k/uL Neutrophils % 64 % Lymphocytes % 14 % Monocytes % 11 % Eosinophils % 8 % Basophils % 0 % Neutrophils # 2.9 (1.3-7.7) k/uL Lymphocytes # 0.7 L (1.0-4.8) k/uL Monocytes # 0.5 (0-1.0) k/uL Eosinophils # 0.4 (0-0.7) k/uL Basophils # 0.0 (0-0.2) k/uL PT (9.0-12.0) sec INR (<1.2) APTT (22.0-30.0) sec Sodium 138 (137-145) mmol/L Potassium 5.3 H (3.5-5.1) mmol/L Chloride 106 (98-107) mmol/L Carbon Dioxide 25 (22-30) mmol/L Anion Gap 7 mmol/L BUN 12 (9-20) mg/dL Creatinine 1.02 (0.66-1.25) mg/dL Est GFR (CKD-EPI)AfAm >90 (>60 ml/min/1.73 sqM) Est GFR (CKD-EPI)NonAf 84 (>60 ml/min/1.73 sqM) Glucose 110 H (74-99) mg/dL Calcium 9.2 (8.4-10.2) mg/dL Magnesium 1.9 (1.6-2.3) mg/dL Total Bilirubin 0.5 (0.2-1.3) mg/dL AST 44 (17-59) U/L ALT 48 (21-72) U/L Alkaline Phosphatase 72 (38-126) U/L Total Creatine Kinase 44 L (55-170) U/L CK-MB (CK-2) 0.5 (0.0-2.4) ng/mL CK-MB (CK-2) Rel Index 1.1 Troponin I <0.012 (0.000-0.034) ng/mL Total Protein 7.2 (6.3-8.2) g/dL Albumin 4.1 (3.5-5.0) g/dL 02/08/18 Range/Units 09:50 WBC (3.8-10.6) k/uL RBC (4.30-5.90) m/uL Hgb (13.0-17.5) gm/dL Hct (39.0-53.0) % MCV (80.0-100.0) fL MCH (25.0-35.0) pg MCHC (31.0-37.0) g/dL RDW (11.5-15.5) % Plt Count (150-450) k/uL Neutrophils % % Lymphocytes % % Monocytes % % Eosinophils % % Basophils % % Neutrophils # (1.3-7.7) k/uL Lymphocytes # (1.0-4.8) k/uL Monocytes # (0-1.0) k/uL Eosinophils # (0-0.7) k/uL Basophils # (0-0.2) k/uL PT 10.1 (9.0-12.0) sec INR 1.0 (<1.2) APTT 24.3 (22.0-30.0) sec Sodium (137-145) mmol/L Potassium (3.5-5.1) mmol/L Chloride (98-107) mmol/L Carbon Dioxide (22-30) mmol/L Anion Gap mmol/L BUN (9-20) mg/dL Creatinine (0.66-1.25) mg/dL Est GFR (CKD-EPI)AfAm (>60 ml/min/1.73 sqM) Est GFR (CKD-EPI)NonAf (>60 ml/min/1.73 sqM) Glucose (74-99) mg/dL Calcium (8.4-10.2) mg/dL Magnesium (1.6-2.3) mg/dL Total Bilirubin (0.2-1.3) mg/dL AST (17-59) U/L ALT (21-72) U/L Alkaline Phosphatase (38-126) U/L Total Creatine Kinase (55-170) U/L CK-MB (CK-2) (0.0-2.4) ng/mL CK-MB (CK-2) Rel Index Troponin I (0.000-0.034) ng/mL Total Protein (6.3-8.2) g/dL Albumin (3.5-5.0) g/dL - Radiology Data Radiology results: image reviewed (Chest x-ray shows no acute process) Disposition Clinical Impression: Chest pain Disposition: ADMITTED IP TO THIS HOSP Referrals: Tina Rondon MD [Primary Care Provider] - 1-2 days Decision Time: 12:15
[2018-02-08 10:12] LABS: Basophils % (A) 0 %; Eosinophils # (A) 0.4 k/uL (0-0.7); Eosinophils % (A) 8 %; HCT 47.2 % (39.0-53.0); HGB 15.7 gm/dL (13.0-17.5); Lymphocytes # (A) 0.7 k/uL (1.0-4.8); Lymphocytes % (A) 14 %; MCHC 33.2 g/dL (31.0-37.0); MCV 81.2 fL (80.0-100.0); Mean Platelet Volume 6.1; Monocytes # (A) 0.5 k/uL (0-1.0); Monocytes % (A) 11 %; Neutrophils # (A) 2.9 k/uL (1.3-7.7); Neutrophils % (A) 64 %; Platelet Count 269 k/uL (150-450); RBC 5.81 m/uL (4.30-5.90); WBC 4.6 k/uL (3.8-10.6)
--- NOTE | 2018-02-08 10:15 | XR ---
EXAMINATION TYPE: XR chest 2V DATE OF EXAM: 02/08/2018 COMPARISON: 01/22/2018 HISTORY: Shortness of breath TECHNIQUE: Frontal and lateral views of the chest are obtained. FINDINGS: Scattered senescent parenchymal changes noted. Hyperinflation compatible with COPD. No evidence for infiltrate. No evidence for atelectasis. Heart size is stable. Mediastinal structures are stable and grossly unremarkable. No evidence for hilar prominence. Degenerative changes dorsal spine. IMPRESSION: 1. No evidence for acute pulmonary disease.
[2018-02-08 10:21] LABS: Partial Thromboplastin Time 24.3 sec (22.0-30.0); Prothrombin Time 10.1 sec (9.0-12.0)
[2018-02-08 10:34] LABS: ALT 48 U/L (21-72); AST 44 U/L (17-59); Albumin 4.1 g/dL (3.5-5.0); Alkaline Phosphatase 72 U/L (38-126); Anion Gap 7 mmol/L; Blood Urea Nitrogen 12 mg/dL (9-20); Calcium 9.2 mg/dL (8.4-10.2); Carbon Dioxide 25 mmol/L (22-30); Chloride 106 mmol/L (98-107); Glucose 110 mg/dL (74-99); Magnesium 1.9 mg/dL (1.6-2.3); Sodium 138 mmol/L (137-145); Total Bilirubin 0.5 mg/dL (0.2-1.3); Total Protein 7.2 g/dL (6.3-8.2)
[2018-02-08 10:35] LABS: Potassium 5.3 mmol/L (3.5-5.1)
[2018-02-08 10:43] LABS: Creatine Kinase 44 U/L (55-170)
[2018-02-08 10:56] LABS: Creatine Kinase MB 0.5 ng/mL (0.0-2.4); Troponin I <0.012 ng/mL (0.000-0.034)
[2018-02-08] MEDS ORDERED: NITROGLYCERIN SL TABS 0.4 MG TAB SUBLINGUAL PRN (11:54)
[2018-02-08 16:37] LABS: Creatine Kinase 39 U/L (55-170)
[2018-02-08 16:52] LABS: Creatine Kinase MB 0.4 ng/mL (0.0-2.4); Troponin I <0.012 ng/mL (0.000-0.034)
[2018-02-08 17:01] LABS: Glucose,Whole Blood 87 mg/dL (75-99)
[2018-02-08] MEDS: NITROGLYCERIN OINT 1 INCH/GM PACKET TOPICAL SCH ×2 (18:11→23:25)
[2018-02-08 19:35] VITALS: RESP 16
[2018-02-08 20:15] LABS: Glucose,Whole Blood 142 mg/dL (75-99)
[2018-02-08] MEDS ORDERED: ACETAMINOPHEN TAB 325 MG TAB PO PRN (20:48)
[2018-02-08] MEDS ORDERED: DULoxetine HCL 60 MG CAPSULE.DR PO SCH (21:00)
[2018-02-08] MEDS: METOPROLOL TARTRATE 25 MG TAB PO SCH (21:43)
[2018-02-08] MEDS: busPIRone HCl 5 MG TAB PO SCH (21:43)
[2018-02-08] MEDS: metFORMIN 500 MG TAB PO SCH (21:43)
[2018-02-08 22:55] LABS: Creatine Kinase 38 U/L (55-170)
[2018-02-08 23:04] LABS: Creatine Kinase MB 0.3 ng/mL (0.0-2.4); Troponin I <0.012 ng/mL (0.000-0.034)
[2018-02-09] MEDS: NITROGLYCERIN OINT 1 INCH/GM PACKET TOPICAL SCH (04:36)
[2018-02-09 06:32] LABS: Glucose,Whole Blood 118 mg/dL (75-99)
[2018-02-09 06:58] LABS: Cholesterol 116 mg/dL (<200); HDL Cholesterol 26 mg/dL (40-60); LDL Cholesterol,Calculated 48 mg/dL (0-99); Triglycerides 209 mg/dL (<150)
[2018-02-09] MEDS ORDERED: ASPIRIN 325 MG TAB PO SCH (09:00)
[2018-02-09] MEDS ORDERED: ASPIRIN 81 MG PO SCH (09:00)
[2018-02-09] MEDS ORDERED: amLODIPine 5 MG TAB PO SCH (09:00)
[2018-02-09] MEDS ORDERED: DULoxetine HCL 30 MG CAPSULE.DR PO SCH (09:00)
[2018-02-09] MEDS ORDERED: PRASUGREL 10 MG TAB PO SCH (09:00)
[2018-02-09] MEDS ORDERED: ATORVASTATIN 80 MG TAB PO SCH (09:00)
[2018-02-09] MEDS ORDERED: ISOSORBIDE MONONITRATE ER 30 MG TAB.ER.24H PO SCH (09:00)
[2018-02-09] MEDS ORDERED: LOSARTAN 25 MG TAB PO SCH (09:00)
[2018-02-09] MEDS: METOPROLOL TARTRATE 25 MG TAB PO SCH (09:50)
[2018-02-09] MEDS: metFORMIN 500 MG TAB PO SCH (09:50)
[2018-02-09] MEDS: busPIRone HCl 5 MG TAB PO SCH (09:50)
[2018-02-09 11:34] VITALS: BP 120/69; PULSE 65; TEMP 98.5
--- NOTE | 2018-02-09 11:48 | P.CRDCN ---
History of Present Illness History of present illness: Mr. Bo is a pleasant 52-year-old male past medical history significant for coronary artery disease s/p recent angioplasty of circumflex artery 01/23/2018, diabetes mellitis, hypertension, dyslipidemia and hypertriglyceridemia. He follows with Dr. Baker in the office. We have been asked to see him in consultation for chest pain. He complains of a discomfort in the midsternal region described as a heavy sensation. No radiation to the arm, back, neck or jaw. Denies shortness of breath, palpitations, dizziness, diaphoresis, nausea or vomiting. Symptoms began on Wednesday evening while he was sitting in his family room watching television. He rates the pain approximately had a 2 out of 10. He went to bed with the pain still ongoing woke up in the morning and still felt the discomfort. He state the pain felt similar to when he had [place] in December but the intensity was much less this time. Catheterization revealed left main with no high-grade stenosis, LAD with proximal plaque approximately 30% as well as mild intimal disease in the midsegment with a plaque in the distal apical segment, circumflex artery with 50 -70% tubular lesion, distal to the left PLV plaque 80%, mid RCA 70-80% plaque. EKG reveals sinus mechansim with inferior T-wave inversion. Chest x-ray negative for acute cardiopulmonary process. Laboratory data reviewed, cardiac enzymes negative 3, LDL 48, HDL 26, triglycerides 209, hemoglobin 15.7, platelets 269, sodium 138, potassium 5.3, magnesium 1.9, creatinine 1.02. Current cardiac medications include aspirin 81 mg daily, atorvastatin 80 mg daily, losartan 25 mg daily, Lopressor 25 mg twice a day, Effient 10 mg daily and Norvasc 5 mg daily. He states he has been very compliant with his medications especially Effient. Most recent echocardiogram performed 01/24/2018 reveals preserved left ventricular systolic function with ejection fraction 50-55%. Review of Systems At the time of my exam: CONSTITUTIONAL: Denies fever. Denies chills. EYES: Denies blurred vision. Denies vision changes. Denies eye pain. EARS, NOSE, MOUTH & THROAT: Denies headache. Denies sore throat. Denies ear pain. CARDIOVASCULAR: Denies chest pain. Denies shortness of breath. Denies orthopnea. Denies PND. Denies palpitations. RESPIRATORY: Denies cough. GASTROINTESTINAL: Denies abdominal pain. Denies diarrhea. Denies constipation. Denies nausea. Denies vomiting. MUSCULOSKELETAL: Denies myalgias. INTEGUMENTARY: Denies pruitis. Denies rash. NEUROLOGIC: Denies numbness. Denies tingling. Denies weakness. PSYCHIATRIC: Denies anxiety. Denies depression. ENDOCRINE: Denies fatigue. Denies weight change. Denies polydipsia. Denies polyurina. GENITOURINARY: Denies burning, hematuria or urgency with micturation. HEMATOLOGIC: Denies history of anemia. Denies bleeding. Past Medical History Past Medical History: Atrial Fibrillation, Coronary Artery Disease (CAD), Diabetes Mellitus, Hypertension, Myocardial Infarction ([place]) Additional Past Medical History / Comment(s): Paroxysmal Afib/tachycardia, nephrolithiasis passed on his own, high triglycerides, ELIAS with bipap, NIDDM type II. Last Myocardial Infarction Date:: 01/22/18 History of Any Multi-Drug Resistant Organisms: None Reported Past Surgical History: Back Surgery, Heart Catheterization With Stent, Hernia Repair Additional Past Surgical History / Comment(s): Low back surgery, R inguinal hernia repair with mesh, umbilical hernia with mesh, colonoscopy with benign polypectomy. Past Anesthesia/Blood Transfusion Reactions: No Reported Reaction Date of Last Stent Placement:: 01/23/18 Smoking Status: Never smoker - Past Family History Father Family Medical History: Cancer, Thyroid Disorder Additional Family Medical History / Comment(s): Father is from stomach/ esophageal cancer. Mother Additional Family Medical History / Comment(s): Mother has had kidney stones, depression and high triglycerides. Medications and Allergies Home Medications Medication Instructions Recorded Confirmed Type Aspirin EC [Ecotrin Low Dose] 81 mg PO DAILY 01/22/18 02/08/18 History DULoxetine HCL [Cymbalta] 30 mg PO QAM 01/22/18 02/08/18 History DULoxetine HCL [Cymbalta] 60 mg PO HS 01/22/18 02/08/18 History busPIRone HCL 5 mg PO BID 01/22/18 02/08/18 History metFORMIN HCL [Glucophage] 1,000 mg PO BID 01/22/18 02/08/18 History Atorvastatin [Lipitor] 80 mg PO DAILY #90 tab 01/24/18 02/08/18 Rx Losartan [Cozaar] 25 mg PO DAILY #90 tab 01/24/18 02/08/18 Rx Metoprolol Tartrate [Lopressor] 25 mg PO BID #180 tab 01/24/18 02/08/18 Rx Nitroglycerin Sl Tabs [Nitrostat] 0.4 mg SUBLINGUAL Q5M PRN #25 tab 01/24/18 Rx Prasugrel [Effient] 10 mg PO DAILY #90 tab 01/24/18 02/08/18 Rx amLODIPine [Norvasc] 5 mg PO DAILY #90 tab 01/24/18 02/08/18 Rx Aspirin EC [Ecotrin Low Dose] 324 mg PO ONCE 02/08/18 02/08/18 History Allergies Allergy/AdvReac Type Severity Reaction Status Date / Time No Known Allergies Allergy Verified 02/08/18 10:35 Physical Exam Vitals: Vital Signs Temp Pulse Pulse Resp BP BP Pulse Ox 02/09/18 08:00 97.6 F 73 16 124/71 96 02/09/18 04:00 97.8 F 70 16 123/68 95 02/09/18 00:00 16 02/08/18 23:31 98.4 F 62 16 114/53 94 L 02/08/18 20:00 16 02/08/18 19:34 98.7 F 75 16 132/69 95 02/08/18 15:00 18 02/08/18 13:50 98.3 F 71 18 127/78 94 L 02/08/18 13:37 97.7 F 65 17 119/65 97 02/08/18 11:48 68 18 132/65 98 02/08/18 10:45 68 18 141/81 98 02/08/18 09:33 98.2 F 76 16 145/88 98 Intake and Output 02/08/18 02/09/18 02/09/18 22:59 06:59 14:59 Intake Total 400 Balance 400 Intake: Oral 400 Other: Voiding Method Toilet Toilet # Voids 1 Blood pressure 124/71 heart rate 73 afebrile maintaining oxygen saturation on room air GENERAL: This is a 52-year-old occasion male in no apparent distress at the time of my examination. HEENT: Head is atraumatic, normocephalic. Pupils are equal, round. Sclerae anicteric. Conjunctivae are clear. Mucous membranes of the mouth are moist. Neck is supple. There is no jugular venous distention. No carotid bruit is heard. LUNGS: Clear to auscultation no wheezes, rales or rhonchi. No chest wall tenderness is noted on palpation or with deep breathing. HEART: Regular rate and rhythm without murmurs, rubs or gallops. S1 and S2 heard. ABDOMEN: Soft, nontender. Bowel sounds are heard. No organomegaly noted. EXTREMITIES: No evidence of peripheral edema and no calf tenderness noted. VASCULAR: Radial and dorsalis pedis pulses palpated, no evidence of clubbing. NEUROLOGIC: Patient is awake, alert and oriented x3. Results 02/08/18 09:50 02/08/18 09:50 Cardiac Enzymes 02/08/18 02/08/18 02/08/18 Range/Units 09:50 09:50 15:35 AST 44 (17-59) U/L CK-MB (CK-2) 0.5 0.4 (0.0-2.4) ng/mL Troponin I <0.012 <0.012 (0.000-0.034) ng/mL 02/08/18 Range/Units 22:25 AST (17-59) U/L CK-MB (CK-2) 0.3 (0.0-2.4) ng/mL Troponin I <0.012 (0.000-0.034) ng/mL Coagulation 02/08/18 Range/Units 09:50 PT 10.1 (9.0-12.0) sec APTT 24.3 (22.0-30.0) sec Lipids 02/09/18 Range/Units 06:31 Triglycerides 209 H (<150) mg/dL Cholesterol 116 (<200) mg/dL HDL Cholesterol 26 L (40-60) mg/dL CBC 02/08/18 Range/Units 09:50 WBC 4.6 (3.8-10.6) k/uL RBC 5.81 (4.30-5.90) m/uL Hgb 15.7 (13.0-17.5) gm/dL Hct 47.2 (39.0-53.0) % Plt Count 269 (150-450) k/uL Comprehensive Metabolic Panel 02/08/18 Range/Units 09:50 Sodium 138 (137-145) mmol/L Potassium 5.3 H (3.5-5.1) mmol/L Chloride 106 (98-107) mmol/L Carbon Dioxide 25 (22-30) mmol/L BUN 12 (9-20) mg/dL Creatinine 1.02 (0.66-1.25) mg/dL Glucose 110 H (74-99) mg/dL Calcium 9.2 (8.4-10.2) mg/dL AST 44 (17-59) U/L ALT 48 (21-72) U/L Alkaline Phosphatase 72 (38-126) U/L Total Protein 7.2 (6.3-8.2) g/dL Albumin 4.1 (3.5-5.0) g/dL Current Medications Generic Name Dose Route Start Last Admin Trade Name Freq PRN Reason Stop Dose Admin Acetaminophen 650 mg 02/08/18 20:48 02/08/18 21:02 Tylenol Tab PO 650 mg Q4HR PRN Administration Fever and/ or Mild Pain Amlodipine Besylate 5 mg 02/09/18 09:00 Norvasc PO DAILY [facility] Aspirin 81 mg 02/09/18 09:00 Aspirin PO DAILY [facility] Atorvastatin Calcium 80 mg 02/09/18 09:00 Lipitor PO DAILY [facility] Buspirone HCl 5 mg 02/08/18 21:00 02/08/18 21:43 Buspar PO 5 mg BID THOR Administration Duloxetine HCl 30 mg 02/09/18 09:00 Cymbalta PO QAM THOR Duloxetine HCl 60 mg 02/08/18 21:00 02/08/18 21:43 Cymbalta PO 60 mg HS [facility] Administration Losartan Potassium 25 mg 02/09/18 09:00 Cozaar PO DAILY [facility] Metformin HCl 1,000 mg 02/08/18 21:00 02/08/18 21:43 Glucophage PO 1,000 mg BID THOR Administration Metoprolol Tartrate 25 mg 02/08/18 21:00 02/08/18 21:43 Lopressor PO 25 mg BID THOR Administration Nitroglycerin 1 inch 02/08/18 18:00 02/09/18 04:36 Nitro-Bid Oint TOPICAL Not Given Q6HR [facility] Nitroglycerin 0.4 mg 02/08/18 11:54 Nitrostat SUBLINGUAL Q5M PRN Chest Pain Prasugrel 10 mg 02/09/18 09:00 Effient PO DAILY THOR Sodium Chloride 10 ml 02/08/18 21:00 02/08/18 19:59 Saline Flush IV 10 ml BID THOR Administration Intake and Output 02/08/18 02/09/18 02/09/18 22:59 06:59 14:59 Intake Total 400 Balance 400 Intake: Oral 400 Other: Voiding Method Toilet Toilet # Voids 1 02/08/18 09:50 02/08/18 09:50 Assessment and Plan Assessment: ASSESSMENT Angina, stable. An acute coronary event has been ruled out with no EKG evidence of acute ischemia and negative cardiac enzymes. History of coronary artery disease status post angioplasty of the circumflex artery. Currently on dual antiplatelet therapy. Hypertension Dyslipidemia Paroxysmal atrial fibrillation Obesity PLAN Add long-acting nitrate Imdur 30 mg daily. Discontinue Nitropaste. Repeat potassium level. Increase activity and ambulation in the hallways. Assess for further symptoms of chest discomfort. If tolerates increased activity and Imdur he is stable from a cardiac perspective. Follow-up with Dr. Baker in 2-3 weeks. Nurse Practitioner note has been reviewed, I agree with a documented findings and plan of care. Patient was seen and examined.
[2018-02-09 11:59] LABS: Glucose,Whole Blood 105 mg/dL (75-99)
--- NOTE | 2018-02-09 13:15 | P.HPIM ---
History of Present Illness H&P Date: 02/08/18 Chief Complaint: Chest pain Is a 52-year-old male with a known history of coronary artery disease status post stent placement about 2 weeks ago, paroxysmal atrial fibrillation, hypertension, diabetes type 2 and hyperlipidemia came to ER with complaints of chest pressure, midsternal with no radiation. Patient felt like pressure like sensation in the midsternal area. No associated nausea vomiting or abdominal pain. No headache or dizziness or lightheadedness. No diaphoresis or shortness of breath. Patient had the symptoms day before yesterday and patient called Dr. Rosales's office and was told if symptoms comes up again advised to come to the hospital. Patient denied any recent illnesses or sick contacts. No fever no chills. No cough or sputum production. EKG showed sinus rhythm with T-wave changes Chest x-ray showed no acute pulmonary Department process Troponin 1 negative Past Medical History Past Medical History: Atrial Fibrillation, Coronary Artery Disease (CAD), Diabetes Mellitus, Hypertension, Myocardial Infarction ([place]) Additional Past Medical History / Comment(s): Paroxysmal Afib/tachycardia, nephrolithiasis passed on his own, high triglycerides, ELIAS with bipap, NIDDM type II. Last Myocardial Infarction Date:: 01/22/18 History of Any Multi-Drug Resistant Organisms: None Reported Past Surgical History: Back Surgery, Heart Catheterization With Stent, Hernia Repair Additional Past Surgical History / Comment(s): Low back surgery, R inguinal hernia repair with mesh, umbilical hernia with mesh, colonoscopy with benign polypectomy. Past Anesthesia/Blood Transfusion Reactions: No Reported Reaction Date of Last Stent Placement:: 01/23/18 Smoking Status: Never smoker - Past Family History Father Family Medical History: Cancer, Thyroid Disorder Additional Family Medical History / Comment(s): Father is from stomach/ esophageal cancer. Mother Additional Family Medical History / Comment(s): Mother has had kidney stones, depression and high triglycerides. Medications and Allergies Home Medications Medication Instructions Recorded Confirmed Type Aspirin EC [Ecotrin Low Dose] 81 mg PO DAILY 01/22/18 02/08/18 History DULoxetine HCL [Cymbalta] 30 mg PO QAM 01/22/18 02/08/18 History DULoxetine HCL [Cymbalta] 60 mg PO HS 01/22/18 02/08/18 History busPIRone HCL 5 mg PO BID 01/22/18 02/08/18 History metFORMIN HCL [Glucophage] 1,000 mg PO BID 01/22/18 02/08/18 History Atorvastatin [Lipitor] 80 mg PO DAILY #90 tab 01/24/18 02/08/18 Rx Losartan [Cozaar] 25 mg PO DAILY #90 tab 01/24/18 02/08/18 Rx Metoprolol Tartrate [Lopressor] 25 mg PO BID #180 tab 01/24/18 02/08/18 Rx Nitroglycerin Sl Tabs [Nitrostat] 0.4 mg SUBLINGUAL Q5M PRN #25 tab 01/24/18 Rx Prasugrel [Effient] 10 mg PO DAILY #90 tab 01/24/18 02/08/18 Rx amLODIPine [Norvasc] 5 mg PO DAILY #90 tab 01/24/18 02/08/18 Rx Aspirin EC [Ecotrin Low Dose] 324 mg PO ONCE 02/08/18 02/08/18 History Allergies Allergy/AdvReac Type Severity Reaction Status Date / Time No Known Allergies Allergy Verified 02/08/18 10:35 Physical Exam Vitals: Vital Signs Temp Pulse Pulse Resp BP BP Pulse Ox 02/08/18 15:00 18 02/08/18 13:50 98.3 F 71 18 127/78 94 L 02/08/18 13:37 97.7 F 65 17 119/65 97 02/08/18 11:48 68 18 132/65 98 02/08/18 10:45 68 18 141/81 98 02/08/18 09:33 98.2 F 76 16 145/88 98 Intake and Output 02/08/18 02/08/18 02/08/18 06:59 14:59 22:59 Other: Voiding Method Toilet # Voids 1 Weight 116 kg PHYSICAL EXAMINATION: Patient is lying in the bed comfortably, no acute distress, awake alert and oriented.. HEENT: Normocephalic. Neck is supple. Pupils reactive. Nostrils clear. Oral cavity is moist. Ears reveal no drainage. Neck reveals no JVD, carotid bruits, or thyromegaly. CHEST EXAMINATION: Trachea is central. Symmetrical expansion. Lung hathaway clear to auscultation and percussion. CARDIAC: Normal S1, S2 with no gallops. No murmurs ABDOMEN: Soft. Bowel sounds normal. No organomegaly. No abdominal bruits. Extremities: reveal no edema. No clubbing or cyanosis Neurologically awake, alert, oriented x3 with well-coordinated movements. No focal deficits noted Skin: No rash or skin lesions. Psychiatric: Coperative. Nonsuicidal Musculoskeletal: No joint swelling or deformity. Normal range of motion. Results CBC & Chem 7: 02/08/18 09:50 02/09/18 11:52 Labs: Abnormal Lab Results - Last 24 Hours (Table) 02/08/18 02/08/18 02/08/18 Range/Units 09:50 09:50 09:50 Lymphocytes # 0.7 L (1.0-4.8) k/uL Potassium 5.3 H (3.5-5.1) mmol/L Glucose 110 H (74-99) mg/dL Total Creatine Kinase 44 L (55-170) U/L 02/08/18 Range/Units 15:35 Lymphocytes # (1.0-4.8) k/uL Potassium (3.5-5.1) mmol/L Glucose (74-99) mg/dL Total Creatine Kinase 39 L (55-170) U/L Thrombosis Risk Factor Assmnt - DVT/VTE Prophylaxis DVT/VTE Prophylaxis: Pharmacologic Prophylaxis ordered - Choose All That Apply Any of the Below Risk Factors Present?: Yes Each Factor Represents 1 point: Age 41-60 years, Obesity (BMI >25) Other Risk Factors: No Other congenital or acquired thrombophilia - If yes, enter type in comment: No Thrombosis Risk Factor Assessment Total Risk Factor Score: 2 Thrombosis Risk Factor Assessment Level: Low Risk Assessment and Plan Assessment: Chest pain/angina with recent history of stent placement. Coronary artery disease with a recent history of stent placement in December 2017 Paroxysmal atrial fibrillation History of [place] Hypertension Hypertriglyceridemia and hyperlipidemia Diabetes type 2 insulin-dependent Morbid obesity with a BMI 35.7 Obstructive sleep apnea with BiPAP DVT prophylaxis Plan: Patient be continued on telemetry monitoring. Continue the serial troponins and EKG and cardiology was consulted. Continue the home medication and insulin dosing. Further recommendations based on the clinical course. Time with Patient: Greater than 30
== END 2018-02-09 14:30 | disposition home or self-care (01) ==
LOC: EC 09:31 → 3OBS 11:54
PROVIDERS: ADMIT Hospitalist; ATTEND Hospitalist
DX: I25.10 Atherosclerotic heart disease of native coronary artery without angina pectoris (principal); I48.0 Paroxysmal atrial fibrillation; I10 Essential (primary) hypertension; E78.5 Hyperlipidemia, unspecified; E78.1 Pure hyperglyceridemia; E11.9 Type 2 diabetes mellitus without complications; I25.2 Old myocardial infarction; G47.33 Obstructive sleep apnea (adult) (pediatric); Z95.5 Presence of coronary angioplasty implant and graft; Z79.82 Long term (current) use of aspirin; Z79.899 Other long term (current) drug therapy; Z79.84 Long term (current) use of oral hypoglycemic drugs; Z87.442 Personal history of urinary calculi; Z99.89 Dependence on other enabling machines and devices; Z80.0 Family history of malignant neoplasm of digestive organs; Z81.8 Family history of other mental and behavioral disorders; E66.01 Morbid (severe) obesity due to excess calories; Z68.35 Body mass index [BMI] 35.0-35.9, adult
CPT/HCPCS: 99285 ×2; 36415; 93005; 80061; 80053; 82550; 82553; 83735; 84132; 84484; 85025; 85610; 85730; 71046; G0378 ×2

== ENCOUNTER → 2018-05-07 | Outpatient (CLI) | payer OTHER ==
[2018-05-07 16:59] LABS: Albumin 4.4 g/dL (3.80-4.90); Albumin/Globulin Ratio 1.76 (1.20-2.10); Anion Gap 7.4 mmol/L (4.00-12.00); Calcium 9.1 mg/dL (8.7-10.3); Carbon Dioxide 25.6 mmol/L (21.6-31.8); Globulin 2.5 g/dL (2.1-3.7); LDL Cholesterol,Calculated 65.2 mg/dL (0.0-131.0); Potassium 4.6 mmol/L (3.5-5.5); Total Bilirubin 0.5 mg/dL (0.3-1.2); Total Protein 6.9 g/dL (6.2-8.2); VLDL Calculation 42.8 mg/dL (5.00-40.00)
== END | disposition home or self-care (01) ==
LOC: LABWHC1 08:46
PROVIDERS: ATTEND Internal Medicine Clinical Cardiac Electrophysiology
DX: E78.1 Pure hyperglyceridemia (principal)
CPT/HCPCS: 36415; 80053; 80061; 83721

== ENCOUNTER → 2018-06-08 | Outpatient (CLI) | payer OTHER ==
--- NOTE | 2018-06-08 18:38 | PN ---
PROGRESS NOTE DATE OF SERVICE: 06/08/2018 53-year-old gentleman who has been followed in [facility] for treatment of obstructive sleep apnea-hypopnea syndrome. The patient continued to use his CPAP equipment every night for the whole night without significant problems. No snoring with the machine. [place] Sleepiness Scale is 10. MEDICATIONS ARE: The same, buspirone, Cymbalta, aspirin, metformin, amlodipine. PHYSICAL EXAM: Patient is in no distress. BP 136/80, HR 76, RR 16, height 5 feet 10 inches, weight 263.2, body mass index 37.7. The patient has lost 2 pounds since last year. Temperature 98.1. Oxygen saturation on room air 94%. HEENT: Normal. Oropharynx: Moderately low position of soft palate. Abdomen slightly obese. Neck: Supple, no JVD. Thyroid is not palpable. LUNGS Clear to percussion and to auscultation. Good air exchange. No wheezing or rhonchi. HEART S1, S2 regular. No murmurs, gallops, or rubs. ABDOMEN: Slightly obese. Soft and nontender. Bowel sounds are present. No organomegaly appreciated. EXTREMITIES No clubbing or cyanosis. PHARMACY ASSOCIATE Awake, alert, and oriented X3. Cranial nerves 2 to 7 intact. There is no fasciculation or atrophy. noted. No focal deficits observed. IMPRESSION: 1. Obstructive sleep apnea-hypopnea syndrome. The patient continued to use his BiPAP equipment with a pressure of 15/11 cm of water every night, benefitting from treatment. 2. No clinical problems with his legs at night. Previous sleep study showed significant periodic limb movements. 3. History of depression. 4. History of anxiety. 5. Hypertension. 6. Obesity. 7. Diabetes mellitus. 8. Status post nasal fractures and restriction of nasal breathing. PLAN: 1. Continue treatment with BiPAP every night for the whole night. 2. Watching and losing weight. 3. Sleep hygiene with regular time in bed for at least 8 hours. 4. No driving if feeling sleepiness. 5. We will maintain a prescription for all necessary BiPAP supplies including mask, tube, filters. Thank you very much for allowing me to participate in management of your patient. Sincerely, Jaspal Castellanos MD, PhD, FAASM Diplomat of [employer] Straddle Bug Driver of [facility] [place] MMODL / COREY: [id number] /
== END | disposition home or self-care (01) ==
LOC: SLEEP 16:09
PROVIDERS: ATTEND Internal Medicine
DX: G47.33 Obstructive sleep apnea (adult) (pediatric) (principal); F32.9 Major depressive disorder, single episode, unspecified; F41.9 Anxiety disorder, unspecified; I10 Essential (primary) hypertension; E66.9 Obesity, unspecified; E11.9 Type 2 diabetes mellitus without complications; S02.2XXD Fracture of nasal bones, subsequent encounter for fracture with routine healing; Z99.89 Dependence on other enabling machines and devices; Z79.82 Long term (current) use of aspirin; Z79.899 Other long term (current) drug therapy; Z79.84 Long term (current) use of oral hypoglycemic drugs; Z68.37 Body mass index [BMI] 37.0-37.9, adult

== ENCOUNTER → 2018-07-26 | Outpatient (CLI) | payer OTHER ==
--- NOTE | 2018-07-26 12:43 | US ---
EXAMINATION TYPE: US kidneys/renal and bladder DATE OF EXAM: 07/26/2018 COMPARISON: CT 2012. CLINICAL HISTORY: R10.9 Abdominal Pain. right flank pain, h/o renal stones EXAM MEASUREMENTS: Right Kidney: 13.3 x 5.7 x 6.9 cm Left Kidney: 12.3 x 5.1 x 6.7 cm Right Kidney: No hydronephrosis or masses seen Left Kidney: No hydronephrosis or masses seen Bladder: wnl Bilateral Jets seen: Yes There is no evidence for hydronephrosis at this point in time. No masses are identified on images tim ed. The urinary bladder is anechoic. Bilateral ureteral jets are seen. Subcentimeter low dense lesions on CT likely reflecting simple small cysts are not clearly identified on ultrasound. IMPRESSION: No hydronephrosis or definitive renal calculi. Advise CT renal stone protocol follow-up if clinical s uspicion for small kidney stones persists.
== END | disposition home or self-care (01) ==
LOC: RADUSWWP 12:02
PROVIDERS: ATTEND Family Medicine
DX: R10.9 Unspecified abdominal pain (principal)
CPT/HCPCS: 76770

== ENCOUNTER → 2019-08-16 | Outpatient (CLI) | payer OTHER ==
--- NOTE | 2019-08-16 17:37 | PN ---
PROGRESS NOTE DATE OF SERVICE: 08/16/2019 This patient is a 54-year-old gentleman who has been followed in [facility] for treatment of obstructive sleep apnea-hypopnea syndrome. The patient continues to use his CPAP equipment every night for the whole night. He sleeps well with that, except he complains that there is a leak from his full-face mask. [place] Sleepiness Scale today is 9. MEDICATIONS: Buspirone, Cymbalta, aspirin, metformin, amlodipine. PHYSICAL EXAMINATION: GENERAL: A pleasant patient in no distress. VITAL SIGNS: BP 152/84, HR 96, RR 16, height 5 feet 10 inches, weight 270, which is about 7 pounds more than during his last visit. Body mass index 38.7, temperature 98.9, oxygen saturation at room air 95%. HEENT: PERRLA, EOMI. Evaluation of oropharynx showed tongue protrudes midline. Low position of soft palate. Mallampati III to IV. NECK: Supple. No JVD. Thyroid is not palpable. LUNGS: Clear to percussion and to auscultation. Good air exchange. No wheezing or rhonchi. HEART: S1, S2 regular. No murmurs, gallops or rubs. ABDOMEN: Obese. EXTREMITIES: No clubbing or cyanosis. SOCIAL WORKER ASSISTANT: Awake, alert, and oriented X3. Cranial nerves 2 to 7 intact. There is no fasciculation or atrophy. noted. No focal deficits observed. I checked the patient's BiPAP unit. Pressure is 15/11 cm of water. Usage is 30/30 nights for more than 4 hours with average usage 8.4 hours per night. Leak is 5 L/minute. Apnea-hypopnea index only 0.3, which is absolutely perfect. IMPRESSION: 1. Obstructive sleep apnea-hypopnea syndrome. The patient demonstrated 100% compliance with treatment, benefitting from treatment. BiPAP pressure is 15/11 cm of water. 2. History of depression. 3. History of anxiety. 4. Hypertension. 5. Obesity. 6. Diabetes mellitus. 7. Status post nasal fracture with restriction of nasal breathing. PLAN: 1. Patient will continue to use BiPAP equipment every night for the whole night. 2. Prescription for Quattro full-face mask from [employer], large size. 3. All other prescriptions, including tube and filters. 4. Losing weight. 5. No driving if feeling any sleepiness. Thank you very much for allowing me to participate in the management of your patient. Sincerely, Jaspal Castellanos MD, PhD, FAASM Diplomat of [place] [employer] Repair Operator of [facility] [place] HENOK / COREY: [id number] /
== END | disposition home or self-care (01) ==
LOC: SLEEP 16:01
PROVIDERS: ATTEND Internal Medicine
DX: G47.33 Obstructive sleep apnea (adult) (pediatric) (principal); I10 Essential (primary) hypertension; E66.9 Obesity, unspecified; E11.9 Type 2 diabetes mellitus without complications; Z68.38 Body mass index [BMI] 38.0-38.9, adult; Z98.890 Other specified postprocedural states; Z79.84 Long term (current) use of oral hypoglycemic drugs; Z79.82 Long term (current) use of aspirin; Z79.899 Other long term (current) drug therapy

== ENCOUNTER → 2020-06-04 | Outpatient (CLI) | payer OTHER ==
--- NOTE | 2020-06-04 15:49 | CT ---
EXAMINATION TYPE: CT abdomen pelvis wo con DATE OF EXAM: 06/04/2020 HISTORY: Right flank pain CT DLP: 1271.5 mGycm. Automated Exposure Control for Dose Reduction was Utilized. TECHNIQUE: CT scan of the abdomen and pelvis is performed without oral or IV contrast. COMPARISON: Renal ultrasound July 26, 2018. Prior CT October 06, 2012. FINDINGS: Within the limitations of a non-contrast study, the following observations are made. LUNG BASES: No significant abnormality is appreciated. LIVER/GB: Liver redemonstrated diffusely low dense consistent with diffuse fatty infiltration. PANCREAS: No significant abnormality is seen. SPLEEN: Stable small splenule anterior to spleen image 44. ADRENALS: No significant abnormality is seen. KIDNEYS: No renal stones or hydronephrosis is seen bilaterally. Mild to moderate nonspecific perineph alana fluid and fat stranding is noted prominent from 2013 study favored on basis of chronic medical re nal disease. No intraluminal calculus and bladder BOWEL: No significant abnormality is seen. GENITAL ORGANS: No gross abnormality seen. LYMPH NODES: No greater than 1cm abdominal or pelvic lymph nodes are appreciated. OSSEOUS STRUCTURES: Straightening of spine with mild/moderate multilevel spurring and disc space narr owing. Multilevel vacuum disc phenomenon in the mid to lower lumbar spine.. Slight interval progressi on from 2013 study noted. OTHER: Stable small to moderate-sized fat-containing left inguinal hernia. IMPRESSION: No renal stones or hydronephrosis is seen bilaterally. No suspicious new or acute finding s identified.
== END | disposition home or self-care (01) ==
LOC: RADCTMAIN 15:17
PROVIDERS: ATTEND Family Medicine
DX: R10.9 Unspecified abdominal pain (principal)
CPT/HCPCS: 74176

== ENCOUNTER → 2020-06-12 | Outpatient (CLI) | payer OTHER ==
[2020-06-12 13:06] LABS: Basophils % (A) 0 %; Eosinophils # (A) 0.4 k/uL (0-0.7); Eosinophils % (A) 7 %; HCT 48.6 % (39.0-53.0); Lymphocytes # (A) 0.7 k/uL (1.0-4.8); Lymphocytes % (A) 11 %; MCH 27.7 pg (25.0-35.0); MCHC 32.8 g/dL (31.0-37.0); MCV 84.4 fL (80.0-100.0); Mean Platelet Volume 6.4; Monocytes # (A) 0.5 k/uL (0-1.0); Monocytes % (A) 8 %; Neutrophils # (A) 4.3 k/uL (1.3-7.7); Neutrophils % (A) 71 %; Platelet Count 272 k/uL (150-450); RBC 5.76 m/uL (4.30-5.90); RDW 14.6 % (11.5-15.5)
[2020-06-12 13:16] LABS: African American GFR (CKD) >90 (>60 ml/min/1.73 sqM); Anion Gap 8 mmol/L; Blood Urea Nitrogen 17 mg/dL (9-20); Carbon Dioxide 26 mmol/L (22-30); Chloride 102 mmol/L (98-107); Non-African American GFR(CKD) >90 (>60 ml/min/1.73 sqM); Potassium 4.2 mmol/L (3.5-5.1); Sodium 136 mmol/L (137-145)
== END | disposition home or self-care (01) ==
LOC: LABWHC1 12:02
PROVIDERS: ATTEND Surgery
DX: Z01.818 Encounter for other preprocedural examination (principal); I72.1 Aneurysm of artery of upper extremity
CPT/HCPCS: 80051; 82565; 84520; 85025

== ENCOUNTER → 2020-06-14 | Day surgery (SDC) | payer OTHER ==
[2020-06-13 14:01] VITALS: BMI 36.1
[~2020-06-14] MED LIST: DEXAMETHASONE SOD PHOSPHATE 4 MG/ML 1 ML VIAL IV ONE; HYDROmorphone 0.5 MG/0.5 ML SYRINGE IVP PRN; LACTATED RINGERS 1,000 ML IV SCH; LIDOCAINE 1% (10MG/ML) FOR IV START INTRADERMA ONE; LIDOCAINE 1% INJ 10MG/ML (20 ML MDV) SQ ONE; MIDAZOLAM 2 MG/2 ML VIAL IV PRN; MIDAZOLAM 2 MG/2 ML VIAL ONE; ONDANSETRON 4 MG/2 ML VIAL IVP ONE; PROPOFOL 10 MG/ML 20 ML VIAL IV ONE; SCOPOLAMINE 1.5MG/72HR PATCH TRANSDERM ONE; fentaNYL (PF) 50 MCG/ML 2 ML AMP ONE
[2020-06-14 13:10] VITALS: TEMP 97.6
[2020-06-14 13:11] LABS: Glucose,Whole Blood 98 mg/dL (75-99)
[2020-06-14 16:00] VITALS: RESP 17
[2020-06-14 16:12] VITALS: BP 136/78; PULSE 86
--- NOTE | 2020-06-14 16:13 | P.OP ---
Date of Procedure: 06/14/20 Preoperative Diagnosis: Right ulnar artery pseudoaneurysm, mass Postoperative Diagnosis: Right wrist lipoma, no ulnar pseudoaneurysm Procedure(s) Performed: Right wrist exploration with ligation and removal of lipoma. 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 He does have a history of radial artery access previously. 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 He states when he hangs his arm down there has been noticed a bulge that is increasing in size over the last couple weeks. He states he would like to have this examined due to fear of something rupturing. He denies any pain to the area. Ultrasound was obtained of the wrist which demonstrated possible pseudoaneurysm versus tortuous vessel. He presents today for expiration. Description of Procedure: After written and informed consent was obtained from the patient the patient was brought to the operative suite and laid in a supine position. The right arm was prepped and draped in the usual sterile fashion after appropriate anesthesia was performed per the anesthesiologist. A small vertical incision was then created with a 15 blade scalpel just proximal to the wrist and dissection was carried down toward the ulnar artery. There was a defect in the fascia noted and artery was being pushed through this defect with a lipomatous tissue beneath the tortuous artery. There was also a conglomerate of venous structures within this area. These were all dissected free from the artery as well as the nerve and removed after suture ligation. This tissue was then sent off for pathology. The artery was dissected in a circumferential manner along a 3 cm section which demonstrated no aneurysm or pseudoaneurysm. It was extremely tortuous and longer than normal. The area was copiously irrigated with antibiotic solution. Hemostasis was assured. The artery was then placed underneath the fascia and the fascia was reapproximated with 3-0 Vicryl suture. The incision was then closed in a multilayer fashion. The skin was cleansed and dressings were placed . The patient tolerated the procedure well and was sent to PACU for recovery. Plan - Discharge Summary Discharge Rx Participant: No New Discharge Prescriptions: No Action metFORMIN HCL [Glucophage] 1,000 mg PO BID DULoxetine HCL [Cymbalta] 30 mg PO QAM Aspirin EC [Ecotrin Low Dose] 81 mg PO DAILY busPIRone HCL 5 mg PO BID DULoxetine HCL [Cymbalta] 60 mg PO HS Atorvastatin [Lipitor] 80 mg PO DAILY #90 tab amLODIPine [Norvasc] 10 mg PO QAM Losartan [Cozaar] 25 mg PO QAM Multivitamins, Thera [Multivitamin (formulary)] 1 tab PO DAILY Discharge Medication List Aspirin EC [Ecotrin Low Dose] 81 mg PO DAILY 01/22/18 [History] DULoxetine HCL [Cymbalta] 30 mg PO QAM 01/22/18 [History] DULoxetine HCL [Cymbalta] 60 mg PO HS 01/22/18 [History] busPIRone HCL 5 mg PO BID 01/22/18 [History] metFORMIN HCL [Glucophage] 1,000 mg PO BID 01/22/18 [History] Atorvastatin [Lipitor] 80 mg PO DAILY #90 tab 01/24/18 [Rx] Losartan [Cozaar] 25 mg PO QAM 06/13/20 [History] Multivitamins, Thera [Multivitamin (formulary)] 1 tab PO DAILY 06/13/20 [History] amLODIPine [Norvasc] 10 mg PO QAM 06/13/20 [History]
--- NOTE | 2020-06-18 15:39 | CDI ---
Date: 06.18.2020 CDS/Medical Sales Associate Name: Lesley Rivers Phone: If any questions, call Jelly Reyes Distance Education Director at [phone] Patient Name: Orlando Bo Admit Date 06.14.20 Discharge Date: 06.14.20 ATTENTION: The [facility] Coding Staff appreciate your assistance in clarifying documentation. Please respond to the clarification below the line at the bottom and electronically sign. The [facility] Coding staff will review the response and follow-up if needed. Please note: Queries are made part of the Legal Health Record. If you have any questions, please contact the Distance Education Director. Dear Dr. Javed In order to code to the greatest specificity and for the greatest reimbursement I need the following information: Please specify the size of the lipoma removed from the wrist. Thank you for your kind consideration. 1x1 cm MTDD
== END ==
LOC: OR 12:42
PROVIDERS: ATTEND Surgery
DX: D17.21 Benign lipomatous neoplasm of skin and subcutaneous tissue of right arm (principal); I77.1 Stricture of artery; E11.9 Type 2 diabetes mellitus without complications; I10 Essential (primary) hypertension; E78.5 Hyperlipidemia, unspecified; Z79.899 Other long term (current) drug therapy; Z79.84 Long term (current) use of oral hypoglycemic drugs; Z98.890 Other specified postprocedural states; Z79.82 Long term (current) use of aspirin
CPT/HCPCS: 88304; 25075; J2250; J1100; J0690; J2405; J2001; J3010; J2704

== ENCOUNTER → 2020-08-15 | Outpatient (CLI) | payer OTHER ==
[2020-08-15 16:24] LABS: African American GFR (CKD) 97.8 (60.0-200.0); Albumin 4.7 g/dL (3.80-4.90); Albumin/Globulin Ratio 2.24 (1.60-3.17); Anion Gap 9.8 mmol/L (4.00-12.00); Calcium 10.1 mg/dL (8.7-10.3); Carbon Dioxide 24.2 mmol/L (21.6-31.8); Globulin 2.1 g/dL (1.6-3.3); LDL Cholesterol,Calculated 59.2 mg/dL (0.0-131.0); Non-African American GFR(CKD) 84.4 (60.0-200.0); Potassium 4.3 mmol/L (3.5-5.5); Total Bilirubin 0.6 mg/dL (0.2-1.2); Total Protein 6.8 g/dL (6.2-8.2); VLDL Calculation 68.8 mg/dL (5.00-40.00)
[2020-08-15 17:15] LABS: Basophils # (A) 0.02 X 10*3/uL (0.00-0.10); Basophils % (A) 0.3 %; Eosinophils # (A) 0.43 X 10*3/uL (0.04-0.35); Eosinophils % (A) 7.4 %; HCT 47.1 % (39.6-50.0); HGB 15.1 g/dL (13.0-17.0); Lymphocytes # (A) 0.84 X 10*3/uL (0.90-5.00); Lymphocytes % (A) 14.5 %; MCH 27.3 pg (27.0-32.0); MCHC 32.1 g/dL (32.0-37.0); MCV 85.2 fL (80.0-97.0); Mean Platelet Volume 9.6 fL (9.5-12.2); Monocytes # (A) 0.86 X 10*3/uL (0.20-1.00); Monocytes % (A) 14.8 %; Neutrophils # (A) 3.63 X 10*3/uL (1.80-7.70); Neutrophils % (A) 62.5 %; Platelet Count 248 X 10*3/uL (140-440); RBC 5.53 X 10*6/uL (4.40-5.60); RDW 14.3 % (11.5-14.5); WBC 5.81 X 10*3/uL (4.50-10.00)
[2020-08-15 17:37] LABS: Urine Creatinine 127.2 mg/dL
[2020-08-15 19:06] LABS: Hemoglobin A1C 7.7 % (4.0-6.0)
== END | disposition home or self-care (01) ==
LOC: LABWHC1 09:46
PROVIDERS: ATTEND Family Medicine
DX: E78.5 Hyperlipidemia, unspecified (principal); E11.9 Type 2 diabetes mellitus without complications
CPT/HCPCS: 36415; 80053; 80061; 82043; 82570; 83036; 84443; 85025

== ENCOUNTER → 2021-10-13 | Outpatient (CLI) | payer OTHER ==
--- NOTE | 2021-10-14 20:26 | MR ---
EXAMINATION TYPE: MR lumbar spine wo con DATE OF EXAM: 10/13/2021 COMPARISON: MR lumbar spine 09/03/2016 HISTORY: Back pain TECHNIQUE: Multiplanar, multisequence images of the lumbar spine were acquired without IV contrast. L1-L2: Posterior broad-based disc bulge causes mild anterior mass effect on the thecal sac. No signif icant spinal stenosis. L2-L3: Posterior broad-based disc bulge causes mild anterior mass effect on the thecal sac as on prio r exam. There is some facet arthropathy change. No significant foraminal encroachment or spinal steno sis. L3-L4: Posterior broad-based disc bulge causes anterior mass effect on the thecal sac. No significant foraminal encroachment. Some facet arthropathy changes present. No spinal stenosis. L4-L5: There is a posterior disc herniation and left posterior paracentral location causing anterolat eral mass effect on the thecal sac similar to prior exam and encroaching on the lateral recess. Facet arthropathy changes present. Circumferential extension endplate disc complex encroaches minimally on the inferior aspect of the foramina. No significant spinal stenosis. L5-S1: No canal stenosis is present. Circumferential extension endplate disc complex encroaches upon the foramina similar to prior exam, greater on the right, there is extension laterally.. There is fac et arthropathy change. Lumbar segments are intact. No paraspinal masses are identified. Conus medullaris has a normal appe arance. Multiple small foci of low signal are scattered within the vertebral bodies which have develo ped in the interval. Lumbar vertebral bodies show preserved height. Is multilevel spondylosis with en dplate discogenic marrow signal change. Loss of disc height signal is present at the intervertebral d iscs. Multilevel vacuum disc phenomenon is present. IMPRESSION: Interval development of abnormal foci of marrow signal change at the developed in the int erval. Consider metastatic disease, marrow replacement disorders. Multilevel degenerative disc disease, facet arthropathy, foraminal encroachment as described. Disc he rniation at L4-5 shows a similar appearance.
== END | disposition home or self-care (01) ==
LOC: RADMRIMAIN 17:02
PROVIDERS: ATTEND Family Medicine
DX: M51.36 Other intervertebral disc degeneration, lumbar region (principal); M47.816 Spondylosis without myelopathy or radiculopathy, lumbar region; M51.26 Other intervertebral disc displacement, lumbar region; R93.89 Abnormal findings on diagnostic imaging of other specified body structures
CPT/HCPCS: 72148

== ENCOUNTER → 2021-10-17 | Outpatient (CLI) | payer OTHER ==
--- NOTE | 2021-10-17 13:58 | CT ---
EXAMINATION TYPE: CT ChestAbdPelvis w con DATE OF EXAM: 10/17/2021 COMPARISON: Lumbar MRI 10/13/2021, CT abdomen pelvis 06/14/2020 HISTORY: Secondary malignant neoplasm CT DLP: 2535.50 mGycm Automated exposure control for dose reduction was used. CONTRAST: CT scan of the chest, abdomen and pelvis is performed with Oral Contrast and with IV Contrast, patien t injected with 100 ml mL of Isovue 300. FINDINGS: Coronary artery calcifications are present LUNGS: The lungs are grossly clear, there is no concerning parenchymal mass or nodule identified. T here is no pleural effusion or pneumothorax seen. The tracheobronchial tree is patent. MEDIASTINUM: There are no greater than 1 cm hilar or mediastinal lymph nodes. No pericardial effusi on is seen. AORTA: No significant abnormality is seen. OTHER: No additional significant abnormality is seen. LIVER/GB: Liver shows low attenuation likely due to hepatic steatosis, focal fatty sparing adjacent t o the gallbladder, gallbladder shows no stone, liver is enlarged PANCREAS: No significant abnormality is seen. SPLEEN: Enlarged measuring AP dimension of 16 cm. ADRENALS: No significant abnormality is seen. KIDNEYS: Cortical cysts are associated with the right kidney, no hydronephrosis bilaterally, no evide nt renal calculus, no hydroureter. REPRODUCTIVE ORGANS: Prostate shows associated calcification and is enlarged. BOWEL: No significant abnormality is seen. FREE AIR: No Free Air visible. ASCITES: None seen. RETROPERITONEAL ADENOPATHY: No retroperitoneal adenopathy is seen. LYMPH NODES: No greater than 1 cm abdominal or pelvic lymph nodes are appreciated. URINARY BLADDER: Thickening of the urinary bladder wall could be due to chronic outlet obstruction r ather than cystitis. PELVIC ADENOPATHY: None visualized. OSSEOUS STRUCTURES: No significant abnormality is seen. IMPRESSION: Hepatosplenomegaly, hepatic steatosis coronary artery disease. Prostate is enlarged as de scribed, correlate for possible chronic bladder outlet obstruction, PSA values.
== END | disposition home or self-care (01) ==
LOC: RADCTMAIN 11:15
PROVIDERS: ATTEND Family Medicine
DX: R16.2 Hepatomegaly with splenomegaly, not elsewhere classified (principal); I25.10 Atherosclerotic heart disease of native coronary artery without angina pectoris; N40.0 Benign prostatic hyperplasia without lower urinary tract symptoms; K76.0 Fatty (change of) liver, not elsewhere classified; C79.9 Secondary malignant neoplasm of unspecified site
CPT/HCPCS: 71260; 74177; 36415; Q9967

== ENCOUNTER → 2021-12-05 | Outpatient (CLI) | payer OTHER ==
[2021-12-05 11:23] LABS: Partial Thromboplastin Time 24.9 sec (22.0-30.0); Prothrombin Time 10.5 sec (9.0-12.0)
[2021-12-05 19:10] LABS: African American GFR (CKD) 110.3 (60.0-200.0); Albumin 4.6 g/dL (3.8-4.9); Albumin/Globulin Ratio 1.64 (1.60-3.17); Anion Gap 12.5 mmol/L (10.00-18.00); BUN/Creat Ratio 17.78 Ratio (12.00-20.00); Calcium 9.4 mg/dL (8.7-10.3); Carbon Dioxide 22.5 mmol/L (20.0-27.5); Globulin 2.8 g/dL (1.6-3.3); Non-African American GFR(CKD) 95.1 (60.0-200.0); Potassium 4.3 mmol/L (3.5-5.5); Total Bilirubin 0.4 mg/dL (0.30-1.20); Total Protein 7.4 g/dL (6.2-8.2)
[2021-12-05 19:30] LABS: Basophils # (A) 0.02 X 10*3/uL (0.00-0.10); Basophils % (A) 0.4 %; Eosinophils # (A) 0.41 X 10*3/uL (0.04-0.35); Eosinophils % (A) 7.8 %; HGB 16.3 g/dL (13.0-17.0); Immature Grans, Automated 0.6 %; Lymphocytes % (A) 11.4 %; MCH 26.6 pg (27.0-32.0); MCV 83.3 fL (80.0-97.0); Mean Platelet Volume 9.2 fL (9.5-12.2); Monocytes # (A) 0.77 X 10*3/uL (0.20-1.00); Monocytes % (A) 14.6 %; NRBC Per 100 WBC 0 /100 WBCS (0.0-0.0); Neutrophils # (A) 3.44 X 10*3/uL (1.80-7.70); Neutrophils % (A) 65.2 %; Platelet Count 252 X 10*3/uL (140-440); RBC 6.12 X 10*6/uL (4.40-5.60); RDW 14.8 % (11.5-14.5); WBC 5.27 X 10*3/uL (4.50-10.00)
[2021-12-05 20:32] LABS: Appearance,Urine Clear (Clear); Bilirubin,Urine Negative (Negative); Blood,Urine Negative (Negative); Color,Urine Yellow (Yellow); Ketones,Urine Trace mg/dL (Negative); Nitrite,Urine Negative (Negative); Specific Gravity,Urine >1.035 (1.001-1.030); Urobilinogen,Urine 0.2 (0.2,1.0)
== END | disposition home or self-care (01) ==
LOC: LABWHC1 09:25
PROVIDERS: ATTEND Specialist
DX: M51.26 Other intervertebral disc displacement, lumbar region (principal); M54.16 Radiculopathy, lumbar region; M54.41 Lumbago with sciatica, right side; M54.42 Lumbago with sciatica, left side
CPT/HCPCS: 36415; 80053; 81003; 83036; 85025; 85610; 85730; 87070

== ENCOUNTER → 2021-12-26 | Outpatient (CLI) | payer OTHER ==
--- NOTE | 2021-12-26 10:07 | XR ---
EXAMINATION TYPE: XR chest 2V DATE OF EXAM: 12/26/2021 COMPARISON: 02/08/2018 INDICATION: Presurgical testing TECHNIQUE: Frontal and lateral views of the chest are obtained. FINDINGS: The heart size is normal. The pulmonary vasculature is normal. The lungs are clear. IMPRESSION: 1. No acute pulmonary process.
== END | disposition home or self-care (01) ==
LOC: RADXRMAIN 09:41
PROVIDERS: ATTEND Specialist
DX: Z01.818 Encounter for other preprocedural examination (principal)
CPT/HCPCS: 71046

== ENCOUNTER 2022-02-09 11:14 | Day surgery (SDC) | payer OTHER ==
[~2022-02-09 11:14] MED LIST changes: -DEXAMETHASONE SOD PHOSPHATE 4 MG/ML 1 ML VIAL IV ONE; -HYDROmorphone 0.5 MG/0.5 ML SYRINGE IVP PRN; -LIDOCAINE 1% (10MG/ML) FOR IV START INTRADERMA ONE; -LIDOCAINE 1% INJ 10MG/ML (20 ML MDV) SQ ONE; -MIDAZOLAM 2 MG/2 ML VIAL IV PRN; -MIDAZOLAM 2 MG/2 ML VIAL ONE; -ONDANSETRON 4 MG/2 ML VIAL IVP ONE; -PROPOFOL 10 MG/ML 20 ML VIAL IV ONE; -SCOPOLAMINE 1.5MG/72HR PATCH TRANSDERM ONE; -fentaNYL (PF) 50 MCG/ML 2 ML AMP ONE
[2022-02-09 11:56] VITALS: RESP 16; TEMP 97.5
[2022-02-09] MEDS ORDERED: LACTATED RINGERS 1,000 ML IV ONE (12:05)
[2022-02-09 12:11] LABS: Glucose,Whole Blood 109 mg/dL (70-110)
[2022-02-09] MEDS ORDERED: PROPOFOL 10 MG/ML 20 ML VIAL IV ONE (12:14)
[2022-02-09 12:58] VITALS: BP 118/60; PULSE 83
[2022-02-09 13:16] LABS: Basophils % (A) 0 %; Eosinophils # (A) 0.4 k/uL (0-0.7); Eosinophils % (A) 8 %; HCT 50.5 % (39.0-53.0); HGB 15.9 gm/dL (13.0-17.5); Lymphocytes # (A) 0.8 k/uL (1.0-4.8); Lymphocytes % (A) 15 %; MCH 26.9 pg (25.0-35.0); MCHC 31.5 g/dL (31.0-37.0); MCV 85.4 fL (80.0-100.0); Mean Platelet Volume 6.6; Monocytes # (A) 0.6 k/uL (0-1.0); Monocytes % (A) 11 %; Neutrophils # (A) 3.1 k/uL (1.3-7.7); Neutrophils % (A) 61 %; Platelet Count 295 k/uL (150-450); RBC 5.91 m/uL (4.30-5.90); RDW 15.1 % (11.5-15.5); WBC 5.1 k/uL (3.8-10.6)
[2022-02-09 13:18] LABS: Reticulocyte % 2.1 % (0.5-2.0)
--- NOTE | 2022-02-09 19:02 | OP ---
OPERATIVE REPORT PROCEDURE PERFORMED: Bone marrow aspiration and biopsy. INDICATIONS FOR PROCEDURE: Abnormal bone marrow signal on MRI. DESCRIPTION OF PROCEDURE: After obtaining consent from the patient, the procedure was performed in the endoscopy suite under general anesthesia performed by Anesthesia Team. The patient was put on the left lateral decubitus position. The right posterior superior iliac crest was localized. Skin was prepped with ChloraPrep. All sterile procedures were followed. About 2 mL of 2% Xylocaine was used for local anesthetic. Monoject needle was inserted. 10 mL aspirate and 1 cm core biopsy were obtained without any difficulties from the first attempt. Pressure was applied afterwards. There was negligible blood loss. The patient tolerated the procedure very well without any immediate complications. MMODL / IJN: [id number] /
== END 2022-02-09 13:19 | disposition home or self-care (01) ==
LOC: OR 11:14
PROVIDERS: ATTEND Internal Medicine Hematology & Oncology
DX: R93.7 Abnormal findings on diagnostic imaging of other parts of musculoskeletal system (principal); R79.9 Abnormal finding of blood chemistry, unspecified; E11.69 Type 2 diabetes mellitus with other specified complication; E78.5 Hyperlipidemia, unspecified; I10 Essential (primary) hypertension; I48.91 Unspecified atrial fibrillation; I25.10 Atherosclerotic heart disease of native coronary artery without angina pectoris; G47.33 Obstructive sleep apnea (adult) (pediatric); Z87.442 Personal history of urinary calculi; Z79.84 Long term (current) use of oral hypoglycemic drugs; Z79.899 Other long term (current) drug therapy; Z95.5 Presence of coronary angioplasty implant and graft; Z79.82 Long term (current) use of aspirin; Z80.0 Family history of malignant neoplasm of digestive organs; Z80.8 Family history of malignant neoplasm of other organs or systems; Z83.49 Family history of other endocrine, nutritional and metabolic diseases; Z84.1 Family history of disorders of kidney and ureter; Z81.8 Family history of other mental and behavioral disorders
CPT/HCPCS: 85025; 85045; 38222; J2704

== ENCOUNTER → 2023-05-14 | Outpatient (CLI) | payer OTHER ==
--- NOTE | 2023-05-14 08:20 | MR ---
EXAMINATION TYPE: MR lumbar spine wo con DATE OF EXAM: 05/14/2023 7:56 AM CLINICAL INDICATION:Male, 57 years old with history of M51.36 OTHER INTERVERTEBRAL DISC DEGENERATION; PHH, Low back pain into mini buttocks COMPARISON: None TECHNIQUE: Multi planar, multi sequence imaging was performed utilizing: T1-weighted, T2-weighted, a nd turbo inversion recovery imaging of the lumbar spine. IV Contrast: cc . (None if empty) FINDINGS: Alignment: The lumbar vertebral bodies have preserved heights and alignment. Cord: The conus medullaris and the distal spinal cord appear unremarkable with regards to their signa l intensity and morphology. Bones/Discs: Mild degeneration changes throughout the spine with osteophyte formation and facet joint arthropathy. Intervertebral disc signal is maintained. T12-L1: No evidence of significant spinal canal stenosis or neural foraminal stenosis. L1-L2: No evidence of significant spinal canal stenosis or neural foraminal stenosis. L2-L3: Disc bulge and facet joint arthropathy result in mild spinal canal and mild to moderate bilate ral neural foraminal stenosis. L3-L4: Disc bulge and facet joint arthropathy result in mild spinal canal and moderate bilateral neur al foraminal stenosis. L4-L5: Left foraminal disc extrusion/protrusion series 301 image 8 which is thought to abut the formi ng nerve roots. The spinal cord is otherwise patent. There is facet joint arthropathy with moderate n eural foraminal stenosis. L5-S1: The disc is rounded posterior morphology without significant spinal canal stenosis. Posterior annular fissure. Facet joint arthropathy with moderate bilateral neural foraminal stenosis. Extrafora shiloh osteophyte displaces the exiting nerve series 601 image 5. No significant spinal canal or neural foraminal stenosis in the remainder of the visualized levels. Other findings: None. IMPRESSION: 1. L4-L5 left foraminal disc extrusion/protrusion which abuts the forming nerve roots. No evidence f or significant spinal canal stenosis. 2. Disc degeneration changes with multilevel neural foraminal stenosis. Stenosis worse at L3-L4, L4- L5 and L5-S1 bilaterally with moderate spinal neural foraminal stenosis. There is a osteophyte which is felt to displace the right exiting nerves at L5-S1.
== END | disposition home or self-care (01) ==
LOC: RADMRIMAIN 06:40
PROVIDERS: ATTEND Family Medicine
DX: M51.36 Other intervertebral disc degeneration, lumbar region (principal); M99.73 Connective tissue and disc stenosis of intervertebral foramina of lumbar region; M25.78 Osteophyte, vertebrae; M51.26 Other intervertebral disc displacement, lumbar region
CPT/HCPCS: 72148

== ENCOUNTER 2023-06-17 00:36 | Inpatient (IN) | payer OTHER ==
[2023-06-17 01:49] LABS: Basophils % (A) 0 %; Eosinophils # (A) 0.5 k/uL (0-0.7); Eosinophils % (A) 7 %; HGB 16.7 gm/dL (13.0-17.5); Lymphocytes # (A) 1.1 k/uL (1.0-4.8); Lymphocytes % (A) 15 %; MCHC 33.4 g/dL (31.0-37.0); MCV 83.8 fL (80.0-100.0); Mean Platelet Volume 6.8; Monocytes # (A) 0.6 k/uL (0-1.0); Monocytes % (A) 9 %; Neutrophils # (A) 4.8 k/uL (1.3-7.7); Neutrophils % (A) 66 %; Platelet Count 259 k/uL (150-450); RBC 5.97 m/uL (4.30-5.90); RDW 14.7 % (11.5-15.5); WBC 7.2 k/uL (3.8-10.6)
[2023-06-17 02:00] LABS: INR 0.9 (<1.2); Partial Thromboplastin Time 25.6 sec (22.0-30.0); Prothrombin Time 10.3 sec (10.0-12.5)
[2023-06-17 02:04] LABS: ALT 56 U/L (4-49); AST 41 U/L (17-59); African American GFR (CKD) >90 (>60 ml/min/1.73 sqM); Albumin 4.4 g/dL (3.5-5.0); Alkaline Phosphatase 103 U/L (38-126); Anion Gap 12 mmol/L; Blood Urea Nitrogen 19 mg/dL (9-20); Calcium 9.5 mg/dL (8.4-10.2); Carbon Dioxide 23 mmol/L (22-30); Chloride 104 mmol/L (98-107); Glucose 132 mg/dL (74-99); Magnesium 1.9 mg/dL (1.6-2.3); Non-African American GFR(CKD) >90 (>60 ml/min/1.73 sqM); Potassium 4.5 mmol/L (3.5-5.1); Sodium 139 mmol/L (137-145); Total Bilirubin 0.5 mg/dL (0.2-1.3); Total Protein 7.6 g/dL (6.3-8.2)
--- NOTE | 2023-06-17 02:26 | XR ---
EXAM: XR Chest, 2 Views CLINICAL HISTORY: ITS.REASON XR Reason: dysrhythmia TECHNIQUE: Frontal and lateral views of the chest. COMPARISON: CXR 12/26/2021. FINDINGS: Lungs: Unremarkable. No consolidation. Pleural space: Unremarkable. No pneumothorax. Heart: Unremarkable. No cardiomegaly. Mediastinum: Unremarkable. Normal mediastinal contour. Bones/joints: Unremarkable. No acute fracture. IMPRESSION: Normal chest x-rays.
[2023-06-17 02:55] LABS: Appearance,Urine Clear (Clear); Color,Urine Yellow; Specific Gravity,Urine 1.015 (1.001-1.035)
[2023-06-17 02:56] LABS: Bilirubin,Urine Negative (Negative); Blood,Urine Negative (Negative); Glucose,Urine (UA) Negative (Negative); Ketones,Urine Negative (Negative); Leukocyte Esterase,Urine Negative (Negative); Nitrite,Urine Negative (Negative); Protein,Urine Negative (Negative); Urobilinogen,Urine <2.0 mg/dL (<2.0)
[2023-06-17] MEDS ORDERED: HEPARIN SODIUM 1,000 UN/ML (10ML VL) IV PRN (02:59)
[2023-06-17] MEDS ORDERED: HEPARIN SODIUM 1,000 UN/ML (10ML VL) IV ONE (02:59)
[2023-06-17] MEDS ORDERED: NALOXONE 0.4 MG/ML 1 ML VIAL IV PRN (03:00)
[2023-06-17] MEDS ORDERED: HEPARIN SOD,PORK IN 0.45% NACL 25,000 UNIT in 0.45% NACL 1 250ML.BAG IV SCH (03:00)
--- NOTE | 2023-06-17 03:01 | ED ---
Arrhythmia/Palpitations HPI - General Chief Complaint: Arrhythmia/Palpitations Stated Complaint: A-Fib Time Seen by Provider: 06/17/23 00:59 Source: patient Mode of arrival: ambulatory Limitations: no limitations - History of Present Illness Initial Comments: 58-year-old male presenting with chief complaint of palpitations. Patient has history of A. fib and his watch alerted him of an elevated heart rate is evening. Patient states he can feel the sensation of his heart racing. He denies any chest pain or difficulty breathing. States that he feels a bit fatigued tonight and has a mild headache. No recent illness. No nausea, vomiting, abdominal pain. No arm or neck pain. Patient is not currently on any blood thinners, he states that he has not gone into a fib in a long time, so his blood thinner was discontinued - Related Data Home Medications Medication Instructions Recorded Confirmed Aspirin EC [Ecotrin Low Dose] 81 mg PO DAILY 01/22/18 02/05/22 DULoxetine HCL [Cymbalta] 30 mg PO QAM 01/22/18 02/05/22 DULoxetine HCL [Cymbalta] 60 mg PO HS 01/22/18 02/09/22 busPIRone HCL 5 mg PO BID 01/22/18 02/09/22 metFORMIN HCL [Glucophage] 1,000 mg PO BID 01/22/18 02/09/22 Losartan [Cozaar] 25 mg PO QAM 06/13/20 02/09/22 Multivitamins, Thera [Multivitamin 1 tab PO DAILY 06/13/20 02/09/22 (formulary)] amLODIPine [Norvasc] 10 mg PO QAM 06/13/20 02/09/22 Previous Rx's Medication Instructions Recorded Atorvastatin [Lipitor] 80 mg PO DAILY #90 tab 01/24/18 Allergies Allergy/AdvReac Type Severity Reaction Status Date / Time No Known Allergies Allergy Verified 02/09/22 11:53 Review of Systems ROS Statement: Those systems with pertinent positive or pertinent negative responses have been documented in the HPI. ROS Other: All systems not noted in ROS Statement are negative. Past Medical History Past Medical History: Atrial Fibrillation, Diabetes Mellitus, Hypertension, Myocardial Infarction ([place]), Sleep Apnea/CPAP/BIPAP Additional Past Medical History / Comment(s): "Paroxysmal Afib/tachycardia - caused by drinking cold fluids." Hx kidney stones, BIPAP use. Last Myocardial Infarction Date:: 01/22/18 History of Any Multi-Drug Resistant Organisms: None Reported Past Surgical History: Heart Catheterization With Stent Additional Past Surgical History / Comment(s): Low back surgery, right inguinal hernia repair with mesh, umbilical hernia with mesh, colonoscopy with benign polypectomy, 1 cardiac stent. Past Anesthesia/Blood Transfusion Reactions: No Reported Reaction Date of Last Stent Placement:: 01/23/18 Past Psychological History: Depression Smoking Status: Never smoker - Past Family History Father Family Medical History: Cancer, Thyroid Disorder Additional Family Medical History / Comment(s): Father is from stomach/esophageal cancer. Mother Family Medical History: Cancer Additional Family Medical History / Comment(s): Mother has had kidney stones, depression and high triglycerides. Skin cancer. General Exam Limitations: no limitations General appearance: alert, in no apparent distress Head exam: Present: atraumatic, normocephalic, normal inspection Eye exam: Present: normal appearance Neck exam: Present: normal inspection Respiratory exam: Present: normal lung sounds bilaterally. Absent: respiratory distress, wheezes, rales, rhonchi, stridor Cardiovascular Exam: Present: tachycardia, irregular rhythm, normal heart sounds. Absent: systolic murmur, diastolic murmur, rubs, gallop, clicks Extremities exam: Present: normal inspection. 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 Ventricular rate 114. OR interval indeterminable. QRS 104. QT 308. QTC 376. Medical Decision Making - Medical Decision Making Was pt. sent in by a medical professional or institution (EVER Restrepo, EQUIPMENT SERVICE TECHNICIAN, urgent care, hospital, or assisted...) When possible be specific @ -[No] Did you speak to anyone other than the patient for history (EMS, parent, family, police, friend...)? What history was obtained from this source @ -[No] Did you review nursing and triage notes (agree or disagree)? Why? @ -[I reviewed and agree with nursing and triage notes] Were old charts reviewed (outside hosp., previous admission, EMS record, old EKG, old radiological studies, urgent care reports/EKG's, assisted records)? Report findings @ -[No old charts were reviewed] Differential Diagnosis (chest pain, altered mental status, abdominal pain women, abdominal pain men, vaginal bleeding, weakness, fever, dyspnea, syncope, headache, dizziness, GI bleed, back pain, seizure, CVA, palpatations, mental health, musculoskeletal)? @ -Differential Palpitations Ventricular arrhythmias, atrial arrhythmias, myocardial infarction, anemia, thyrotoxicosis, electrolyte imbalance, hypokalemia, pulmonary embolism, pulmonary disease, drugs, alcohol, anxiety, stress.... This is not meant to be an all-inclusive list. EKG interpreted by me (3pts min.). @ -[As above] X-rays interpreted by me (1pt min.). @ -Chest x-ray shows no acute process CT interpreted by me (1pt min.). @ -[None done] U/S interpreted by me (1pt. min.). @ -[None done] What testing was considered but not performed or refused? (CT, X-rays, U/S, labs)? Why? @ -[None] What meds were considered but not given or refused? Why? @ -[None] Did you discuss the management of the patient with other professionals (professionals i.e. EVER Restrepo, EQUIPMENT SERVICE TECHNICIAN, lab, RT, psych nurse, clinical social worker, psychology instructor, teacher, desk officer, counseling case manager)? Give summary @ -My attending spoke with the [facility] hospitalist group provider on-call who accepted admission Was smoking cessation discussed for >3mins.? @ -[No] Was critical care preformed (if so, how long)? @ -[No] Were there social determinants of health that impacted care today? How? (Homelessness, low income, unemployed, alcoholism, drug addiction, transportation, low edu. Level, literacy, decrease access to med. care, penitentiary, rehab)? @ -[No] Was there de-escalation of care discussed even if they declined (Discuss DNR or withdrawal of care, Hospice)? DNR status @ -[No] What co-morbidities impacted this encounter? (DM, HTN, Smoking, COPD, CAD, Cancer, CVA, ARF, Chemo, Hep., AIDS, mental health diagnosis, sleep apnea, morbid obesity)? @ -Atrial fibrillation Was patient admitted / discharged? Hospital course, mention meds given and route, prescriptions, significant lab abnormalities, going to OR and other pertinent info. @ -58-year-old male presenting with chief complaint of elevated heart rate. Patient has history of A. fib. EKG shows atrial fibrillation. His rate ranges from the 80s to 120s. Lab work shows no acute process. Negative troponin. Ch est x-ray shows no acute process. The patient is not currently on any blood thinners. Heparin is initiated. Patient will be admitted for evaluation by cardiology in the morning. Patient is agreeable with this plan. I discussed this case with my attending Dr. Houston Undiagnosed new problem with uncertain prognosis? @ -[No] Drug Therapy requiring intensive monitoring for toxicity (Heparin, Nitro, Insulin, Cardizem)? @ -Heparin Were any procedures done? @ -[No] Diagnosis/symptom? @ -Atrial fibrillation Acute, or Chronic, or Acute on Chronic? @ -Acute Uncomplicated (without systemic symptoms) or Complicated (systemic symptoms)? @ -Complicated Side effects of treatment? @ -[No] Exacerbation, Progression, or Severe Exacerbation? @ -[No] Poses a threat to life or bodily function? How? (Chest pain, [place], [place], pneumonia, PE, COPD, DKA, ARF, appy, cholecystitis, CVA, Diverticulitis, Homicidal, Suicidal, threat to staff... and all critical care pts) @ -Yes - Lab Data Result diagrams: 06/17/23 01:09 06/17/23 01:09 Lab Results 06/17/23 06/17/23 06/17/23 Range/Units 01:09 01:09 01:09 WBC 7.2 (3.8-10.6) k/uL RBC 5.97 H (4.30-5.90) m/uL Hgb 16.7 (13.0-17.5) gm/dL Hct 50.0 (39.0-53.0) % MCV 83.8 (80.0-100.0) fL MCH 28.0 (25.0-35.0) pg MCHC 33.4 (31.0-37.0) g/dL RDW 14.7 (11.5-15.5) % Plt Count 259 (150-450) k/uL MPV 6.8 Neutrophils % 66 % Lymphocytes % 15 % Monocytes % 9 % Eosinophils % 7 % Basophils % 0 % Neutrophils # 4.8 (1.3-7.7) k/uL Lymphocytes # 1.1 (1.0-4.8) k/uL Monocytes # 0.6 (0-1.0) k/uL Eosinophils # 0.5 (0-0.7) k/uL Basophils # 0.0 (0-0.2) k/uL PT 10.3 (10.0-12.5) sec INR 0.9 (<1.2) APTT 25.6 (22.0-30.0) sec Sodium 139 (137-145) mmol/L Potassium 4.5 (3.5-5.1) mmol/L Chloride 104 (98-107) mmol/L Carbon Dioxide 23 (22-30) mmol/L Anion Gap 12 mmol/L BUN 19 (9-20) mg/dL Creatinine 0.84 (0.66-1.25) mg/dL Est GFR (CKD-EPI)AfAm >90 (>60 ml/min/1.73 sqM) Est GFR (CKD-EPI)NonAf >90 (>60 ml/min/1.73 sqM) Glucose 132 H (74-99) mg/dL Calcium 9.5 (8.4-10.2) mg/dL Magnesium 1.9 (1.6-2.3) mg/dL Total Bilirubin 0.5 (0.2-1.3) mg/dL AST 41 (17-59) U/L ALT 56 H (4-49) U/L Alkaline Phosphatase 103 (38-126) U/L Troponin I (0.000-0.034) ng/mL Total Protein 7.6 (6.3-8.2) g/dL Albumin 4.4 (3.5-5.0) g/dL TSH 3.370 (0.465-4.680) mIU/L Urine Color Urine Appearance (Clear) Urine pH (5.0-8.0) Ur Specific [place] (1.001-1.035) Urine Protein (Negative) Urine Glucose (UA) (Negative) Urine Ketones (Negative) Urine Blood (Negative) Urine Nitrite (Negative) Urine Bilirubin (Negative) Urine Urobilinogen (<2.0) mg/dL Ur Leukocyte Esterase (Negative) 06/17/23 06/17/23 Range/Units 01:09 01:09 WBC (3.8-10.6) k/uL RBC (4.30-5.90) m/uL Hgb (13.0-17.5) gm/dL Hct (39.0-53.0) % MCV (80.0-100.0) fL MCH (25.0-35.0) pg MCHC (31.0-37.0) g/dL RDW (11.5-15.5) % Plt Count (150-450) k/uL MPV Neutrophils % % Lymphocytes % % Monocytes % % Eosinophils % % Basophils % % Neutrophils # (1.3-7.7) k/uL Lymphocytes # (1.0-4.8) k/uL Monocytes # (0-1.0) k/uL Eosinophils # (0-0.7) k/uL Basophils # (0-0.2) k/uL PT (10.0-12.5) sec INR (<1.2) APTT (22.0-30.0) sec Sodium (137-145) mmol/L Potassium (3.5-5.1) mmol/L Chloride (98-107) mmol/L Carbon Dioxide (22-30) mmol/L Anion Gap mmol/L BUN (9-20) mg/dL Creatinine (0.66-1.25) mg/dL Est GFR (CKD-EPI)AfAm (>60 ml/min/1.73 sqM) Est GFR (CKD-EPI)NonAf (>60 ml/min/1.73 sqM) Glucose (74-99) mg/dL Calcium (8.4-10.2) mg/dL Magnesium (1.6-2.3) mg/dL Total Bilirubin (0.2-1.3) mg/dL AST (17-59) U/L ALT (4-49) U/L Alkaline Phosphatase (38-126) U/L Troponin I <0.012 (0.000-0.034) ng/mL Total Protein (6.3-8.2) g/dL Albumin (3.5-5.0) g/dL TSH (0.465-4.680) mIU/L Urine Color Yellow Urine Appearance Clear (Clear) Urine pH 6.0 (5.0-8.0) Ur Specific [place] 1.015 (1.001-1.035) Urine Protein Negative (Negative) Urine Glucose (UA) Negative (Negative) Urine Ketones Negative (Negative) Urine Blood Negative (Negative) Urine Nitrite Negative (Negative) Urine Bilirubin Negative (Negative) Urine Urobilinogen <2.0 (<2.0) mg/dL Ur Leukocyte Esterase Negative (Negative) Disposition Clinical Impression: Atrial fibrillation Disposition: ADMITTED IP TO THIS HOSP Condition: Fair Time of Disposition: 03:01
[2023-06-17] MEDS ORDERED: LOSARTAN 25 MG TAB PO STA (03:54)
[2023-06-17] MEDS ORDERED: amLODIPine 10 MG TAB PO STA (03:54)
[2023-06-17] MEDS: ACETAMINOPHEN TAB 325 MG TAB PO PRN ×2 (04:12→21:51)
[2023-06-17] MEDS ORDERED: DILTIAZEM DRIP BOLUS FROM BAG 1 MG SOLN IV ONE (10:00)
[2023-06-17] MEDS: METOPROLOL TARTRATE 50 MG TAB PO SCH ×3 (10:23→21:51)
[2023-06-17] MEDS: APIXABAN 5 MG TAB PO SCH ×2 (10:25→21:41)
[2023-06-17] MEDS: DILTIAZEM 125 MG in SODIUM CHLORIDE 0.9% 100 ML IV SCH (10:40)
[2023-06-17] MEDS ORDERED: DEXTROSE 50% SYRINGE 50 ML IVP PRN ×2 (11:03)
--- NOTE | 2023-06-17 12:04 | P.HPIM ---
History of Present Illness H&P Date: 06/17/23 History of present illness; patient is a 58-year-old gentleman with past medical history significant for atrial fibrillation fibrillation, coronary disease, hypertension, diabetes mellitus presented to the ER because of palpitations. Patient stated that was all right yesterday afternoon when while he was taking a nap, he was woken up with a feeling of his heart fluttering. Patient Smart watch alerted him off his heart rate being high. Patient at that time was complaining of palpitations. There was no complain of of chest pain. There was no complain of Shortness of breath. Patient denied any orthopnea or PND. There was no complain of swelling of feet. Patient stated that his A. fib is always brought about when he is exposed to either cold weather he takes cold drinks or gets exposed to cold weather. In the past patient had taken Rythmol when these episodes of A. fib come round but this time he didn't have that at hand. Patient denies any nausea, vomiting or abdominal pain. Patient was complaining of generalized fatigue and tiredness. Because of these symptoms, patient presented to the ER Initial lab work done in the ER showed A. fib with 7.2, hemoglobin 16.7, platelet count 259, sodium 139 potassium 4.5, BUN 19, creatinine 0.84, glucose 132, AST 41, AST 56, troponin 0.012 UA negative for infection EKG done in the ER showed heart rate of 114, no P waves seen , no ST segment elevation or depression seen, no T-wave inversions seen. Chest x-ray done in the ER showed normal chest x-ray Patient admitted to internal medicine service REVIEW OF SYSTEMS: CONSTITUTIONAL: No fever, no malaise, no fatigue. HEENT: No recent visual problems or hearing problems. Denied any sore throat. CARDIOVASCULAR: As mentioned in HPI PULMONARY: As mentioned in HPI GASTROINTESTINAL: No diarrhea, no nausea, no vomiting, no abdominal pain. NEUROLOGICAL: No headaches, no weakness, no numbness. HEMATOLOGICAL: Denies any bleeding or petechiae. GENITOURINARY: Denies any burning micturition, frequency, or urgency. MUSCULOSKELETAL/RHEUMATOLOGICAL: Denies any joint pain, swelling, or any muscle pain. ENDOCRINE: Denies any polyuria or polydipsia. The rest of the 14-point review of systems is negative. PHYSICAL EXAMINATION: GENERAL: The patient is alert and oriented x3, not in any acute distress. Well developed, well nourished. HEENT: Pupils are round and equally reacting to light. EOMI. No scleral icterus. No conjunctival pallor. Normocephalic, atraumatic. No pharyngeal erythema. No thyromegaly. CARDIOVASCULAR: S1 and S2 present. No murmurs, rubs, or gallops. Irregular in rate and rhythm PULMONARY: Chest is clear to auscultation, no wheezing or crackles. ABDOMEN: Soft, nontender, nondistended, normoactive bowel sounds. No palpable organomegaly. MUSCULOSKELETAL: No joint swelling or deformity. EXTREMITIES: No cyanosis, clubbing, or pedal edema. NEUROLOGICAL: Gross neurological examination did not reveal any focal deficits. SKIN: No rashes. Assessment and plan A. fib with RVR Hypertension Hyperlipidemia Diabetes mellitus Monitor vital signs Monitor CBC Monitor CMP Continue telemetry monitoring Trend troponins. Continue pharmacy dose heparin Continue Lopressor Monitor blood sugar levels, continue sliding scale insulin Consult cardiology Resume home meds Labs and medication were reviewed.. Continue same treatment. Continue with symptomatic treatment. Resume home medication. Monitor labs and vitals. DVT and GI prophylaxis. Further recommendations as per clinical course of the patient Dictation was produced using [employer] dictation software. please excuse any grammatical, word or spelling errors. Past Medical History Past Medical History: Atrial Fibrillation, Diabetes Mellitus, Hypertension, Myocardial Infarction ([place]), Sleep Apnea/CPAP/BIPAP Additional Past Medical History / Comment(s): "Paroxysmal Afib/tachycardia - caused by drinking cold fluids." Hx kidney stones, BIPAP use. Last Myocardial Infarction Date:: 01/22/18 History of Any Multi-Drug Resistant Organisms: None Reported Past Surgical History: Heart Catheterization With Stent, Orthopedic Surgery Additional Past Surgical History / Comment(s): Lower back surgery x2, right inguinal hernia repair with mesh, umbilical hernia with mesh, colonoscopy with benign polypectomy, 1 cardiac stent. Past Anesthesia/Blood Transfusion Reactions: No Reported Reaction Date of Last Stent Placement:: 01/23/18 Past Psychological History: Depression Additional Psychological History / Comment(s): Pt resides with his spouse. He is independent. 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 He has emplo yment stress. He is on medication for his depression that is helpful. Smoking Status: Never smoker Past Alcohol Use History: Rare Past Drug Use History: None Reported - Past Family History Father Family Medical History: Cancer, Thyroid Disorder Additional Family Medical History / Comment(s): Father is from stomach/esophageal cancer. Mother Family Medical History: Cancer Additional Family Medical History / Comment(s): Mother has had kidney stones, depression and high triglycerides. Skin cancer. Medications and Allergies Home Medications Medication Instructions Recorded Confirmed Type Aspirin EC [Ecotrin Low Dose] 81 mg PO DAILY 01/22/18 06/17/23 History metFORMIN HCL [Glucophage] 1,000 mg PO DAILY 01/22/18 06/17/23 History Atorvastatin [Lipitor] 80 mg PO DAILY #90 tab 01/24/18 06/17/23 Rx Meloxicam [Mobic] 15 mg PO DAILY PRN 06/17/23 06/17/23 History Semaglutide [Ozempic] 0.5 mg SQ MORALES 06/17/23 06/17/23 History Valsartan [Diovan] 320 mg PO DAILY 06/17/23 06/17/23 History Venlafaxine HCl [Effexor XR] 150 mg PO DAILY 06/17/23 06/17/23 History amLODIPine [Norvasc] 10 mg PO DAILY 06/17/23 06/17/23 History busPIRone HCL [Buspirone HCl] 7.5 mg PO BID 06/17/23 06/17/23 History hydroCHLOROthiazide [Hydrodiuril] 25 mg PO DAILY 06/17/23 06/17/23 History metFORMIN HCL [Glucophage] 500 mg PO HS 06/17/23 06/17/23 History Allergies Allergy/AdvReac Type Severity Reaction Status Date / Time No Known Allergies Allergy Verified 06/17/23 07:43 Physical Exam Vitals: Vital Signs Temp Pulse Pulse Resp BP Pulse Ox 06/17/23 06:03 97.7 F 108 H 17 138/87 95 06/17/23 04:30 109 H 12 140/85 95 06/17/23 03:30 122 H 21 121/91 95 06/17/23 03:00 105 H 14 138/99 95 06/17/23 02:46 112 H 18 141/102 95 06/17/23 01:02 123 H 06/17/23 00:41 98 F 115 H 18 173/83 98 Intake and Output 06/16/23 06/17/23 06/17/23 22:59 06:59 14:59 Intake Total 66.84 Balance 66.84 Intake: Intake, IV Titration 66.84 Amount Heparin Sod,Pork in 0.45% 66.84 NaCl 25,000 unit In 0.45 % NaCl 1 250ml.bag @ 8.32 UNITS/KG/HR 10.001 mls/ hr IV .Q24H [facility] Rx#: [id number] Other: Weight 120.202 kg Results CBC & Chem 7: 06/17/23 01:09 06/17/23 01:09 Labs: Abnormal Lab Results - Last 24 Hours (Table) 06/17/23 06/17/23 Range/Units 01:09 01:09 RBC 5.97 H (4.30-5.90) m/uL Glucose 132 H (74-99) mg/dL ALT 56 H (4-49) U/L
[2023-06-17] MEDS: INSULIN ASPART (NovoLOG) 100 UNIT/ML VIAL SQ SCH ×3 (12:43→21:42)
[2023-06-17 12:45] LABS: Glucose,Whole Blood 115 mg/dL (70-110)
[2023-06-17 16:52] LABS: Glucose,Whole Blood 101 mg/dL (70-110)
[2023-06-17] MEDS: busPIRone HCl 5 MG TAB PO SCH (21:41)
[2023-06-17 21:44] LABS: Glucose,Whole Blood 105 mg/dL (70-110)
--- NOTE | 2023-06-17 23:44 | CONS ---
CONSULTATION HISTORY OF PRESENT ILLNESS: Orlando Bo is a 58-year-old gentleman, a patient of Dr. Baker, who has a remote history of paroxysmal atrial fib, not on anticoagulation. He has hypertension, type 2 diabetes, and also has had previous CAD with PCI in 2018. He underwent stenting of what seems to be a circumflex coronary artery performed by Dr. Eid in December 2017. Since then, he has done fairly well, had no further symptoms. Prior to that he had episodes of atrial fib and he used to use Rythmol. He presented in December 2017 with a [id number] ME and cardiac cath revealed critical stenosis involving the proximal circumflex and he underwent stenting of this vessel with a good result. Coronary angiogram at that time revealed that he did have moderate disease in the 3rd obtuse marginal branch and nondominant RCA and also in the mild to moderate LAD disease with preserved LV systolic function. He came into the hospital mainly with complaints of increasing palpitations that have started probably like around midnight or so. His watch that he uses also alerted him to a higher heart rate. He felt a sensation of heart racing, but no chest discomfort. He felt mild shortness of breath. He was found to be in atrial fibrillation with a rapid ventricular rate. He is currently comfortable, feels well, but the heart rate has also improved. PAST MEDICAL HISTORY: 1. CAD with PCI of circumflex. 2. Paroxysmal atrial fibrillation. 3. Hypertension. 4. Type 2 diabetes mellitus. MEDICATIONS: Medications at home include, 1. Aspirin. 2. Metformin. 3. Losartan. 4. Amlodipine. 5. Lipitor. ALLERGIES: No known allergies. IMAGING STUDIES: EKG revealed atrial fib, moderate ventricular rate, nonspecific ST-T changes with Q- waves in the inferior leads. Q-waves are nondiagnostic. PHYSICAL EXAMINATION: VITAL SIGNS: Blood pressure is 130/70, pulse rate is about 90 to 100, irregular. HEENT: Unremarkable. Fundus was not examined by me. NECK: Supple. There is no JVD. I do not hear a carotid bruit. HEART: Reveals S1, S2 with irregular rhythm. LUNGS: Revealed decent air entry. ABDOMEN: Soft, nontender. LOWER EXTREMITIES: Reveal normal pulses. No edema. CENTRAL NERVOUS SYSTEM: Normal. IMPRESSION: 1. Paroxysmal atrial fibrillation in a patient who had a remote history of atrial fibrillation 5 years ago. 2. Coronary artery disease with prior percutaneous coronary intervention. 3. Hypertension. 4. Hyperlipidemia. 5. Type 2 diabetes mellitus. RECOMMENDATIONS: I am recommending apixaban 5 mg b.i.d. I will also suggest that we place him on diltiazem 7.5 mg bolus and drip to control the rate and metoprolol tartrate 50 mg b.i.d. and once metoprolol is given, if the heart rate is better, diltiazem can be discontinued. Hopefully, we will convert to sinus rhythm. We will continue his other medications. Based on clinical course, I will make further recommendations. I discussed my thoughts in detail with the patient. Thank you very much for the consult. HENOK / XENIAN: [id number] /
[2023-06-18] MEDS: DILTIAZEM 125 MG in SODIUM CHLORIDE 0.9% 100 ML IV SCH ×2 (01:56→19:45)
[2023-06-18 07:29] LABS: Glucose,Whole Blood 129 mg/dL (70-110)
[2023-06-18] MEDS: hydroCHLOROthiazide 25 MG TAB PO SCH (07:49)
[2023-06-18] MEDS: VENLAFAXINE HCL ER 150 MG CAP PO SCH (07:49)
[2023-06-18] MEDS: ATORVASTATIN 80 MG TAB PO SCH (07:50)
[2023-06-18] MEDS: busPIRone HCl 5 MG TAB PO SCH ×2 (07:50→20:56)
[2023-06-18] MEDS: INSULIN ASPART (NovoLOG) 100 UNIT/ML VIAL SQ SCH ×4 (07:51→20:53)
[2023-06-18 08:21] LABS: Basophils % (A) 0 %; Eosinophils # (A) 0.5 k/uL (0-0.7); Eosinophils % (A) 6 %; HCT 53.1 % (39.0-53.0); HGB 17.9 gm/dL (13.0-17.5); Lymphocytes # (A) 0.8 k/uL (1.0-4.8); Lymphocytes % (A) 9 %; MCH 28.5 pg (25.0-35.0); MCHC 33.7 g/dL (31.0-37.0); MCV 84.5 fL (80.0-100.0); Mean Platelet Volume 6.9; Monocytes # (A) 0.7 k/uL (0-1.0); Monocytes % (A) 8 %; Neutrophils % (A) 75 %; Platelet Count 265 k/uL (150-450); RBC 6.28 m/uL (4.30-5.90); RDW 14.6 % (11.5-15.5); WBC 9.3 k/uL (3.8-10.6)
[2023-06-18 08:33] LABS: INR 1.1 (<1.2); Prothrombin Time 11.5 sec (10.0-12.5)
[2023-06-18] MEDS ORDERED: ASPIRIN 81 MG PO SCH (09:00)
[2023-06-18] MEDS ORDERED: amLODIPine 10 MG TAB PO SCH (09:00)
[2023-06-18] MEDS: APIXABAN 5 MG TAB PO SCH ×2 (09:03→20:56)
[2023-06-18] MEDS: METOPROLOL TARTRATE 50 MG TAB PO SCH (09:03)
[2023-06-18] MEDS ORDERED: DEXTROSE 5% IN WATER 100 ML with AMIODARONE 150 MG IV ONE (10:42)
[2023-06-18] MEDS ORDERED: AMIODARONE 360 MG in DEXTROSE 5% IN WATER 200 ML IV ONE ×2 (10:42)
[2023-06-18] MEDS: LOSARTAN 50 MG TAB PO SCH (11:56)
[2023-06-18 12:07] LABS: Glucose,Whole Blood 152 mg/dL (70-110)
--- NOTE | 2023-06-18 12:58 | P.PN ---
Subjective Progress Note Date: 06/18/23 patient is a 58-year-old gentleman with past medical history significant for atrial fibrillation fibrillation, coronary disease, hypertension, diabetes mellitus presented to the ER because of palpitations. Patient stated that was all right yesterday afternoon when while he was taking a nap, he was woken up with a feeling of his heart fluttering. Patient Smart watch alerted him off his heart rate being high. Patient at that time was complaining of palpitations. There was no complain of of chest pain. There was no complain of Shortness of breath. Patient denied any orthopnea or PND. There was no complain of swelling of feet. Patient stated that his A. fib is always brought about when he is exposed to either cold weather he takes cold drinks or gets exposed to cold weather. In the past patient had taken Rythmol when these episodes of A. fib come round but this time he didn't have that at hand. Patient denies any nausea, vomiting or abdominal pain. Patient was complaining of generalized fatigue and tiredness. Because of these symptoms, patient presented to the ER Initial lab work done in the ER showed A. fib with 7.2, hemoglobin 16.7, platelet count 259, sodium 139 potassium 4.5, BUN 19, creatinine 0.84, glucose 132, AST 41, AST 56, troponin 0.012 UA negative for infection EKG done in the ER showed heart rate of 114, no P waves seen , no ST segment elevation or depression seen, no T-wave inversions seen. Chest x-ray done in the ER showed normal chest x-ray Patient admitted to internal medicine service 06/18. Patient seen and examined. Patient currently in A. fib. States that he still, feels palpitations. Denies any chest pain. REVIEW OF SYSTEMS: CONSTITUTIONAL: No fever, no malaise,. CARDIOVASCULAR: No chest pain, no palpitations, no syncope. PULMONARY: No shortness of breath, no cough, GASTROINTESTINAL: No diarrhea, no nausea, no vomiting, no abdominal pain. NEUROLOGICAL: No headaches, no weakness, PHYSICAL EXAMINATION: GENERAL: The patient is alert and oriented x3, not in any acute distress. Well developed, well nourished. HEENT: Pupils are round and equally reacting to light. EOMI. No scleral icterus. No conjunctival pallor. Normocephalic, atraumatic. No pharyngeal erythema. No thyromegaly. CARDIOVASCULAR: S1 and S2 present. No murmurs, rubs, or gallops. PULMONARY: Chest is clear to auscultation, no wheezing or crackles. ABDOMEN: Soft, nontender, nondistended, normoactive bowel sounds. No palpable organomegaly. MUSCULOSKELETAL: No joint swelling or deformity. EXTREMITIES: No cyanosis, clubbing, or pedal edema. NEUROLOGICAL: Gross neurological examination did not reveal any focal deficits. SKIN: No rashes. Assessment and plan A. fib with RVR Hypertension Hyperlipidemia Diabetes mellitus Monitor vital signs Monitor CBC Monitor CMP Continue telemetry monitoring Trend troponins. Continue pharmacy dose heparin Continue Lopressor Started on amiodarone drip Cardiology following In regards to hypertension, continue amlodipine Regards to hyperlipidemia , continue Lipitor In regards to diabetes mellitus, continue sliding scale insulin for now Labs and medication were reviewed.. Continue same treatment. Continue with symptomatic treatment. Resume home medication. Monitor labs and vitals. DVT and GI prophylaxis. Further recommendations as per clinical course of the patient Dictation was produced using [employer] dictation software. please excuse any grammatical, word or spelling errors. Objective - Vital Signs Vital signs: Vital Signs Temp 97.8 F 06/17/23 21:35 Pulse 107 H 06/18/23 09:00 Resp 20 06/18/23 09:00 BP 143/90 06/18/23 09:00 Pulse Ox 98 06/18/23 09:00 FiO2 Intake & Output 06/17/23 06/18/23 06/18/23 18:59 06:59 18:59 Intake Total 100.34 Balance 100.34 Intake: Intake, IV Titration 100.34 Amount Diltiazem 125 mg In 33.5 Sodium Chloride 0.9% 100 ml @ 7.5 MG/HR 7.5 mls/hr IV .[id number] [facility] Rx#: [id number] Heparin Sod,Pork in 0.45% 66.84 NaCl 25,000 unit In 0.45 % NaCl 1 250ml.bag @ 8.32 UNITS/KG/HR 10.001 mls/ hr IV .Q24H [facility] Rx#: [id number] - Labs CBC & Chem 7: 06/18/23 08:00 06/17/23 01:09 Labs: Abnormal Lab Results - Last 24 Hours (Table) 06/17/23 06/18/23 06/18/23 Range/Units 12:40 07:27 08:00 RBC 6.28 H (4.30-5.90) m/uL Hgb 17.9 H (13.0-17.5) gm/dL Hct 53.1 H (39.0-53.0) % Lymphocytes # 0.8 L (1.0-4.8) k/uL POC Glucose (mg/dL) 115 H 129 H (70-110) mg/dL
[2023-06-18 17:10] LABS: Glucose,Whole Blood 180 mg/dL (70-110)
[2023-06-18] MEDS: AMIODARONE 450 MG in DEXTROSE 5% IN WATER 250 ML IV SCH ×2 (17:26)
[2023-06-18 19:49] LABS: Glucose,Whole Blood 106 mg/dL (70-110)
[2023-06-19 06:07] LABS: Glucose,Whole Blood 141 mg/dL (70-110)
[2023-06-19] MEDS: DILTIAZEM 125 MG in SODIUM CHLORIDE 0.9% 100 ML IV SCH (06:12)
[2023-06-19] MEDS: INSULIN ASPART (NovoLOG) 100 UNIT/ML VIAL SQ SCH ×4 (06:13→21:00)
[2023-06-19] MEDS: AMIODARONE 450 MG in DEXTROSE 5% IN WATER 250 ML IV SCH ×2 (06:36)
--- NOTE | 2023-06-19 06:53 | PN ---
PROGRESS NOTE SUBJECTIVE: This gentleman has history of CAD and also paroxysmal atrial fibrillation. Yesterday I initiate him on Eliquis and Cardizem drip. His rate is not that much controlled. I am recommending that we will give an amiodarone bolus and drip. I will discontinue amlodipine, aspirin, start him on losartan 100 mg daily. OBJECTIVE: VITALS: Stable. NECK: No JVD. HEART: S1, S2 heard normally, short systolic murmur. Irregular rhythm, tachycardia. LUNGS: Reveal bilateral decent air entry. ABDOMEN: Unremarkable. EXTREMITIES: Lower extremity exam otherwise is unremarkable. MMODL / IJN: [id number] /
[2023-06-19] MEDS: LOSARTAN 50 MG TAB PO SCH (08:38)
[2023-06-19] MEDS: APIXABAN 5 MG TAB PO SCH ×2 (08:38→21:00)
[2023-06-19] MEDS: VENLAFAXINE HCL ER 150 MG CAP PO SCH (08:38)
[2023-06-19] MEDS: busPIRone HCl 5 MG TAB PO SCH ×2 (08:38→20:59)
[2023-06-19] MEDS: METOPROLOL TARTRATE 50 MG TAB PO SCH (08:38)
[2023-06-19] MEDS: ATORVASTATIN 80 MG TAB PO SCH (08:39)
[2023-06-19] MEDS: hydroCHLOROthiazide 25 MG TAB PO SCH (08:39)
[2023-06-19 09:17] LABS: HGB 18.7 gm/dL (13.0-17.5); MCH 27.3 pg (25.0-35.0); MCHC 32.5 g/dL (31.0-37.0); Mean Platelet Volume 7.2; Platelet Count 317 k/uL (150-450); RBC 6.86 m/uL (4.30-5.90); RDW 14.8 % (11.5-15.5); WBC 8.5 k/uL (3.8-10.6)
[2023-06-19 09:36] LABS: HCT 57.7 % (39.0-53.0)
[2023-06-19 09:45] LABS: ALT 60 U/L (4-49); AST 39 U/L (17-59); African American GFR (CKD) 84 (>60 ml/min/1.73 sqM); Albumin 4.7 g/dL (3.5-5.0); Alkaline Phosphatase 98 U/L (38-126); Anion Gap 17 mmol/L; Blood Urea Nitrogen 25 mg/dL (9-20); Calcium 9.8 mg/dL (8.4-10.2); Carbon Dioxide 23 mmol/L (22-30); Chloride 99 mmol/L (98-107); Glucose 138 mg/dL (74-99); Non-African American GFR(CKD) 72 (>60 ml/min/1.73 sqM); Potassium 4.1 mmol/L (3.5-5.1); Sodium 139 mmol/L (137-145); Total Bilirubin 0.7 mg/dL (0.2-1.3)
[2023-06-19 11:27] LABS: Glucose,Whole Blood 165 mg/dL (70-110)
[2023-06-19] MEDS: CLOPIDOGREL 75 MG TAB PO SCH (12:30)
--- NOTE | 2023-06-19 13:36 | P.PN ---
Subjective Progress Note Date: 06/19/23 patient is a 58-year-old gentleman with past medical history significant for atrial fibrillation fibrillation, coronary disease, hypertension, diabetes mellitus presented to the ER because of palpitations. Patient stated that was all right yesterday afternoon when while he was taking a nap, he was woken up with a feeling of his heart fluttering. Patient Smart watch alerted him off his heart rate being high. Patient at that time was complaining of palpitations. There was no complain of of chest pain. There was no complain of Shortness of breath. Patient denied any orthopnea or PND. There was no complain of swelling of feet. Patient stated that his A. fib is always brought about when he is exposed to either cold weather he takes cold drinks or gets exposed to cold weather. In the past patient had taken Rythmol when these episodes of A. fib come round but this time he didn't have that at hand. Patient denies any nausea, vomiting or abdominal pain. Patient was complaining of generalized fatigue and tiredness. Because of these symptoms, patient presented to the ER Initial lab work done in the ER showed A. fib with 7.2, hemoglobin 16.7, platelet count 259, sodium 139 potassium 4.5, BUN 19, creatinine 0.84, glucose 132, AST 41, AST 56, troponin 0.012 UA negative for infection EKG done in the ER showed heart rate of 114, no P waves seen , no ST segment elevation or depression seen, no T-wave inversions seen. Chest x-ray done in the ER showed normal chest x-ray Patient admitted to internal medicine service 06/18. Patient seen and examined. Patient currently in A. fib. States that he still, feels palpitations. Denies any chest pain. 06/19. Patient seen and examined. Currently in A. fib, rate controlled, currently amiodarone and Cardizem drip. Denies any palpitations. Denies any nausea or vomiting. Vital signs stable REVIEW OF SYSTEMS: CONSTITUTIONAL: No fever, no malaise,. CARDIOVASCULAR: No chest pain, no palpitations, no syncope. PULMONARY: No shortness of breath, no cough, GASTROINTESTINAL: No diarrhea, no nausea, no vomiting, no abdominal pain. NEUROLOGICAL: No headaches, no weakness, PHYSICAL EXAMINATION: GENERAL: The patient is alert and oriented x3, not in any acute distress. Well developed, well nourished. HEENT: Pupils are round and equally reacting to light. EOMI. No scleral icterus. No conjunctival pallor. Normocephalic, atraumatic. No pharyngeal erythema. No thyromegaly. CARDIOVASCULAR: S1 and S2 present. No murmurs, rubs, or gallops. PULMONARY: Chest is clear to auscultation, no wheezing or crackles. ABDOMEN: Soft, nontender, nondistended, normoactive bowel sounds. No palpable organomegaly. MUSCULOSKELETAL: No joint swelling or deformity. EXTREMITIES: No cyanosis, clubbing, or pedal edema. NEUROLOGICAL: Gross neurological examination did not reveal any focal deficits. SKIN: No rashes. Assessment and plan A. fib with RVR Hypertension Hyperlipidemia Diabetes mellitus Monitor vital signs Monitor CBC Monitor CMP Continue telemetry monitoring Trend troponins. DC heparin, switched to Eliquis Continue Lopressor Continue amiodarone drip and continue Cardizem drip Cardiology following In regards to hypertension, continue amlodipine Regards to hyperlipidemia , continue Lipitor In regards to diabetes mellitus, continue sliding scale insulin for now Labs and medication were reviewed.. Continue same treatment. Continue with symptomatic treatment. Resume home medication. Monitor labs and vitals. DVT and GI prophylaxis. Further recommendations as per clinical course of the patient Dictation was produced using [employer] dictation software. please excuse any grammatical, word or spelling errors. Objective - Vital Signs Vital signs: Vital Signs Temp 97.8 F 06/19/23 07:48 Pulse 100 06/19/23 08:37 Resp 16 06/19/23 07:48 BP 112/63 06/19/23 07:48 Pulse Ox 97 06/19/23 07:48 FiO2 Intake & Output 06/18/23 06/19/23 06/19/23 18:59 06:59 18:59 Intake Total 297.824 118 Balance 297.824 118 Intake: Intake, IV Titration 297.824 Amount Amiodarone 450 mg In 219.449 Dextrose 5% in Water 250 ml @ 0.5 MG/MIN 16.667 mls/hr IV .Q15H [facility] Rx#: [id number] Diltiazem 125 mg In 78.375 Sodium Chloride 0.9% 100 ml @ 7.5 MG/HR 7.5 mls/hr IV .[id number] [facility] Rx#: [id number] Oral 118 - Labs CBC & Chem 7: 06/19/23 08:18 06/19/23 08:18 Labs: Abnormal Lab Results - Last 24 Hours (Table) 06/18/23 06/18/23 06/18/23 Range/Units 08:00 12:04 17:09 RBC (4.30-5.90) m/uL Hgb (13.0-17.5) gm/dL Hct (39.0-53.0) % BUN (9-20) mg/dL Glucose (74-99) mg/dL POC Glucose (mg/dL) 152 H 180 H (70-110) mg/dL Hemoglobin A1c 6.5 H (<=6.0) % ALT (4-49) U/L 06/19/23 06/19/23 06/19/23 Range/Units 06:06 08:18 08:18 RBC 6.86 H (4.30-5.90) m/uL Hgb 18.7 H (13.0-17.5) gm/dL Hct 57.7 H* (39.0-53.0) % BUN 25 H (9-20) mg/dL Glucose 138 H (74-99) mg/dL POC Glucose (mg/dL) 141 H (70-110) mg/dL Hemoglobin A1c (<=6.0) % ALT 60 H (4-49) U/L
--- NOTE | 2023-06-19 14:16 | P.PN ---
Subjective Progress Note Date: 06/19/23 The patient is a 58-year-old male who follows in the office with Dr. Baker. He presented to the hospital with elevated heart rates. He was found to be in A. fib with RVR. Patient does have a known history of atrial fibrillation, but has remained in sinus rhythm for several years. He was started on IV Cardizem, however the patient did not convert or become rate controlled. Yesterday he was started on an amiodarone drip. The patient remains asymptomatic from the cardiac standpoint. He is able to ambulate around his room without chest pain or shortness of breath. He also denies any dizziness or lightheadedness. GENERAL: Well-appearing, well-nourished and in no acute distress. NECK: Supple without JVD or thyromegaly. LUNGS: Breath sounds clear to auscultation bilaterally. Respiration equal and unlabored. No wheezes, rales or rhonchi. HEART: Irregular rate and rhythm without murmurs, rubs or gallops. S1 and S2 heard. EXTREMITIES: Normal range of motion, no edema. No clubbing or cyanosis. Peripheral pulses intact and strong. TELEMETRY: Atrial fibrillation with heart rate in the 70s overnight IMPRESSION: Coronary artery disease Persistent atrial fibrillation Hypertension Diabetes Dyslipidemia PLAN: Discontinue amiodarone Rate control with beta blockers Discharge on anticoagulation within the next 24 hours as long as he remains asymptomatic Further recommendations to be based on clinical course I am dictating on behalf of Dr Peter Baker's history/physical and assessment/pl an. Objective - Vital Signs Vital signs: Vital Signs Temp 98 F 06/19/23 12:00 Pulse 80 06/19/23 12:00 Resp 18 06/19/23 12:00 BP 115/65 06/19/23 12:00 Pulse Ox 97 06/19/23 12:00 FiO2 Intake & Output 06/18/23 06/19/23 06/19/23 18:59 06:59 18:59 Intake Total 297.824 151.125 Balance 297.824 151.125 Intake: Intake, IV Titration 297.824 33.125 Amount Amiodarone 450 mg In 219.449 Dextrose 5% in Water 250 ml @ 0.5 MG/MIN 16.667 mls/hr IV .Q15H [facility] Rx#: [id number] Diltiazem 125 mg In 78.375 33.125 Sodium Chloride 0.9% 100 ml @ 7.5 MG/HR 7.5 mls/hr IV .[id number] [facility] Rx#: [id number] Oral 118 - Labs CBC & Chem 7: 06/19/23 08:18 06/19/23 08:18 Labs: Abnormal Lab Results - Last 24 Hours (Table) 06/18/23 06/19/23 06/19/23 Range/Units 17:09 06:06 08:18 RBC 6.86 H (4.30-5.90) m/uL Hgb 18.7 H (13.0-17.5) gm/dL Hct 57.7 H* (39.0-53.0) % BUN (9-20) mg/dL Glucose (74-99) mg/dL POC Glucose (mg/dL) 180 H 141 H (70-110) mg/dL ALT (4-49) U/L 06/19/23 06/19/23 Range/Units 08:18 11:24 RBC (4.30-5.90) m/uL Hgb (13.0-17.5) gm/dL Hct (39.0-53.0) % BUN 25 H (9-20) mg/dL Glucose 138 H (74-99) mg/dL POC Glucose (mg/dL) 165 H (70-110) mg/dL ALT 60 H (4-49) U/L
[2023-06-19 16:16] LABS: Glucose,Whole Blood 118 mg/dL (70-110)
[2023-06-19 19:50] LABS: Glucose,Whole Blood 145 mg/dL (70-110)
[2023-06-19] MEDS: METOPROLOL TARTRATE 25 MG TAB PO SCH (20:59)
[2023-06-20 05:57] LABS: Glucose,Whole Blood 141 mg/dL (70-110)
[2023-06-20] MEDS: DILTIAZEM 125 MG in SODIUM CHLORIDE 0.9% 100 ML IV SCH (06:08)
[2023-06-20] MEDS: INSULIN ASPART (NovoLOG) 100 UNIT/ML VIAL SQ SCH (06:10)
[2023-06-20 07:49] LABS: Basophils % (A) 0 %; Eosinophils # (A) 0.5 k/uL (0-0.7); Eosinophils % (A) 7 %; HGB 17.9 gm/dL (13.0-17.5); Lymphocytes # (A) 1.2 k/uL (1.0-4.8); Lymphocytes % (A) 15 %; MCH 27.4 pg (25.0-35.0); MCHC 32.4 g/dL (31.0-37.0); MCV 84.4 fL (80.0-100.0); Monocytes # (A) 0.8 k/uL (0-1.0); Monocytes % (A) 10 %; Neutrophils # (A) 5.1 k/uL (1.3-7.7); Neutrophils % (A) 64 %; Platelet Count 303 k/uL (150-450); RBC 6.55 m/uL (4.30-5.90); RDW 14.6 % (11.5-15.5)
[2023-06-20 08:09] LABS: HCT 55.3 % (39.0-53.0)
[2023-06-20] MEDS: APIXABAN 5 MG TAB PO SCH (09:09)
[2023-06-20] MEDS: METOPROLOL TARTRATE 25 MG TAB PO SCH (09:09)
[2023-06-20] MEDS: LOSARTAN 50 MG TAB PO SCH (09:09)
[2023-06-20] MEDS: ATORVASTATIN 80 MG TAB PO SCH (09:09)
[2023-06-20] MEDS: CLOPIDOGREL 75 MG TAB PO SCH (09:09)
[2023-06-20] MEDS: hydroCHLOROthiazide 25 MG TAB PO SCH (09:09)
[2023-06-20] MEDS: busPIRone HCl 5 MG TAB PO SCH (09:09)
[2023-06-20] MEDS: VENLAFAXINE HCL ER 150 MG CAP PO SCH (09:09)
[2023-06-20 09:30] VITALS: BP 122/83; PULSE 92; RESP 16; TEMP 98.1
[2023-06-20 11:33] LABS: ALT 53 U/L (4-49); AST 35 U/L (17-59); African American GFR (CKD) 74 (>60 ml/min/1.73 sqM); Albumin 4.3 g/dL (3.5-5.0); Alkaline Phosphatase 100 U/L (38-126); Anion Gap 13 mmol/L; Blood Urea Nitrogen 27 mg/dL (9-20); Calcium 9.5 mg/dL (8.4-10.2); Carbon Dioxide 24 mmol/L (22-30); Chloride 101 mmol/L (98-107); Glucose 125 mg/dL (74-99); Non-African American GFR(CKD) 64 (>60 ml/min/1.73 sqM); Potassium 4.2 mmol/L (3.5-5.1); Sodium 138 mmol/L (137-145); Total Bilirubin 0.8 mg/dL (0.2-1.3); Total Protein 7.4 g/dL (6.3-8.2)
--- NOTE | 2023-06-20 12:16 | P.PN ---
Subjective Progress Note Date: 06/20/23 This is Addison Elizondo NP, I'm dictating on behalf of Dr. Baker's H&P and A&P. Patient was interviewed and examined. Patient is a pleasant 58-year-old male who presented to the hospital with elevated heart rates and was found to be in A. fib with RVR. Patient does have a known history of atrial fibrillation, but had been in sinus rhythm previously. Despite IV Cardizem as well as IV amiodarone, the patient's rate has not been controlled. We discontinued his amiodarone yesterday, and increased his beta blockers. This morning the patient reports that he is feeling fine today. He is denying chest pain, shortness of breath, heart palpitations, dizziness, and syncopal episodes. Review the patient's telemetry does show that he continues in A. fib, however his rate is controlled at this time. GENERAL: Well-appearing, well-nourished and in no acute distress. NECK: Supple without JVD or thyromegaly. LUNGS: Breath sounds clear to auscultation bilaterally. Respiration equal and unlabored. No wheezes, rales or rhonchi. HEART: Regular rate and rhythm without murmurs, rubs or gallops. S1 and S2 heard. EXTREMITIES: Normal range of motion, no edema. No clubbing or cyanosis. Peripheral pulses intact and strong. VITALS: Temp 98.1, pulse 92, respirations 16, blood pressure 122/83, O2 saturation 94% on room air TELEMETRY: Atrial fibrillation with controlled ventricular response LABS: White count 8.0, hemoglobin 17.9, platelets 303, sodium 38, potassium 4.2, BUN 27, creatinine 1.24 IMPRESSION: 1. Coronary artery disease 2. Persistent atrial fibrillation 3. Hypertension 4. Diabetes 5. Dyslipidemia PLAN: From a cardiac standpoint the patient to be discharged home today. Continue Diovan 320 mg daily. Hold amlodipine. Discharge on metoprolol 75 mg twice a day. Follow-up in the office as recommended. Thank you for allowing us to participate in the care of this patient. Objective - Vital Signs Vital signs: Vital Signs Temp 98.1 F 06/20/23 08:00 Pulse 92 06/20/23 08:00 Resp 16 06/20/23 08:00 BP 122/83 06/20/23 08:00 Pulse Ox 94 L 06/20/23 08:00 FiO2 Intake & Output 06/19/23 06/20/23 06/20/23 18:59 06:59 18:59 Intake Total 931.125 598.75 Balance 931.125 598.75 Intake: Intake, IV Titration 33.125 58.75 Amount Diltiazem 125 mg In 33.125 58.75 Sodium Chloride 0.9% 100 ml @ 7.5 MG/HR 7.5 mls/hr IV .[id number] [facility] Rx#: [id number] Oral [id number] Other: # Voids 2 1 - Labs CBC & Chem 7: 06/20/23 06:33 06/20/23 06:33 Labs: Abnormal Lab Results - Last 24 Hours (Table) 06/19/23 06/19/23 06/20/23 Range/Units 16:15 19:48 05:56 RBC (4.30-5.90) m/uL Hgb (13.0-17.5) gm/dL Hct (39.0-53.0) % BUN (9-20) mg/dL Glucose (74-99) mg/dL POC Glucose (mg/dL) 118 H 145 H 141 H (70-110) mg/dL ALT (4-49) U/L 06/20/23 06/20/23 Range/Units 06:33 06:33 RBC 6.55 H (4.30-5.90) m/uL Hgb 17.9 H (13.0-17.5) gm/dL Hct 55.3 H (39.0-53.0) % BUN 27 H (9-20) mg/dL Glucose 125 H (74-99) mg/dL POC Glucose (mg/dL) (70-110) mg/dL ALT 53 H (4-49) U/L
--- NOTE | 2023-06-20 12:20 | P.DS ---
Providers Date of admission: 06/17/23 03:42 Expected date of discharge: 06/20/23 Attending physician: Lian Alvarado Consults: 06/17/23 03:00 Consult Physician Urgent Consulting Provider: [facility] Consult Reason/Comments: a. fib Do you want consulting provider notified?: Yes, Notify in am Primary care physician: Tina [place] Hospital Course: Discharge diagnoses; A. fib with RVR Hypertension Hyperlipidemia Diabetes mellitus Hospital course; patient is a 58-year-old gentleman with past medical history significant for atrial fibrillation fibrillation, coronary disease, hypertension, diabetes mellitus presented to the ER because of palpitations. Patient stated that was all right yesterday afternoon when while he was taking a nap, he was woken up with a feeling of his heart fluttering. Patient Smart watch alerted him off his heart rate being high. Patient at that time was complaining of palpitations. There was no complain of of chest pain. There was no complain of Shortness of breath. Patient denied any orthopnea or PND. There was no complain of swelling of feet. Patient stated that his A. fib is always brought about when he is exposed to either cold weather he takes cold drinks or gets exposed to cold weather. In the past patient had taken Rythmol when these episodes of A. fib come round but this time he didn't have that at hand. Patient denies any nausea, vomiting or abdominal pain. Patient was complaining of generalized fatigue and tiredness. Because of these symptoms, patient presented to the ER Initial lab work done in the ER showed A. fib with 7.2, hemoglobin 16.7, platelet count 259, sodium 139 potassium 4.5, BUN 19, creatinine 0.84, glucose 132, AST 41, AST 56, troponin 0.012 UA negative for infection EKG done in the ER showed heart rate of 114, no P waves seen , no ST segment elevation or depression seen, no T-wave inversions seen. Chest x-ray done in the ER showed normal chest x-ray Patient admitted to internal medicine service 06/18. Patient seen and examined. Patient currently in A. fib. States that he still, feels palpitations. Denies any chest pain. 06/19. Patient seen and examined. Currently in A. fib, rate controlled, currently amiodarone and Cardizem drip. Denies any palpitations. Denies any nausea or vomiting. Vital signs stable 06/20. Patient seen and examined. Cardiology cleared the patient for discharge, recommended sending patient on Lopressor and Eliquis PHYSICAL EXAMINATION: GENERAL: The patient is alert and oriented x3, not in any acute distress. Well developed, well nourished. HEENT: Pupils are round and equally reacting to light. EOMI. No scleral icterus. No conjunctival pallor. Normocephalic, atraumatic. No pharyngeal erythema. No thyromegaly. CARDIOVASCULAR: S1 and S2 present. No murmurs, rubs, or gallops. PULMONARY: Chest is clear to auscultation, no wheezing or crackles. ABDOMEN: Soft, nontender, nondistended, normoactive bowel sounds. No palpable organomegaly. MUSCULOSKELETAL: No joint swelling or deformity. EXTREMITIES: No cyanosis, clubbing, or pedal edema. NEUROLOGICAL: Gross neurological examination did not reveal any focal deficits. SKIN: No rashes. Dictation was produced using [employer] dictation software. please excuse any grammatical, word or spelling errors. Patient Condition at Discharge: Fair Plan - Discharge Summary New Discharge Prescriptions: New Clopidogrel [Plavix] 75 mg PO DAILY 30 Days #30 tab Apixaban [Eliquis] 5 mg PO BID 30 Days #60 tab Metoprolol Tartrate [Lopressor] 75 mg PO BID 30 Days #60 tab Continue metFORMIN HCL [Glucophage] 1,000 mg PO DAILY Atorvastatin [Lipitor] 80 mg PO DAILY #90 tab hydroCHLOROthiazide [Hydrodiuril] 25 mg PO DAILY Semaglutide [Ozempic] 0.5 mg SQ MORALES Venlafaxine HCl [Effexor XR] 150 mg PO DAILY busPIRone HCL 7.5 mg PO BID Valsartan [Diovan] 320 mg PO DAILY Discontinued Aspirin EC [Ecotrin Low Dose] 81 mg PO DAILY Meloxicam [Mobic] 15 mg PO DAILY PRN PRN Reason: Pain metFORMIN HCL [Glucophage] 500 mg PO HS amLODIPine [Norvasc] 10 mg PO DAILY Discharge Medication List metFORMIN HCL [Glucophage] 1,000 mg PO DAILY 01/22/18 [History] Atorvastatin [Lipitor] 80 mg PO DAILY #90 tab 01/24/18 [Rx] Semaglutide [Ozempic] 0.5 mg SQ MORALES 06/17/23 [History] Valsartan [Diovan] 320 mg PO DAILY 06/17/23 [History] Venlafaxine HCl [Effexor XR] 150 mg PO DAILY 06/17/23 [History] busPIRone HCL 7.5 mg PO BID 06/17/23 [History] hydroCHLOROthiazide [Hydrodiuril] 25 mg PO DAILY 06/17/23 [History] Apixaban [Eliquis] 5 mg PO BID 30 Days #60 tab 06/20/23 [Rx] Clopidogrel [Plavix] 75 mg PO DAILY 30 Days #30 tab 06/20/23 [Rx] Metoprolol Tartrate [Lopressor] 75 mg PO BID 30 Days #60 tab 06/20/23 [Rx] Follow up Appointment(s)/Referral(s): Peter Baker MD [STAFF PHYSICIAN] - 2 Weeks Tina Rondon MD [Primary Care Provider] - 1-2 days Discharge Disposition: HOME SELF-CARE
== END 2023-06-20 12:58 | disposition home or self-care (01) | DRG 310 ==
LOC: EC 00:36 → 3SCARD 03:42
PROVIDERS: ADMIT Hospitalist; ATTEND Hospitalist
DX: I48.19 Other persistent atrial fibrillation (principal); I25.10 Atherosclerotic heart disease of native coronary artery without angina pectoris; G47.30 Sleep apnea, unspecified; E11.9 Type 2 diabetes mellitus without complications; E78.5 Hyperlipidemia, unspecified; F32.A Depression, unspecified; I10 Essential (primary) hypertension; K40.90 Unilateral inguinal hernia, without obstruction or gangrene, not specified as recurrent; K42.9 Umbilical hernia without obstruction or gangrene; Z95.5 Presence of coronary angioplasty implant and graft; Z79.1 Long term (current) use of non-steroidal anti-inflammatories (NSAID); Z79.82 Long term (current) use of aspirin; Z79.899 Other long term (current) drug therapy; Z79.84 Long term (current) use of oral hypoglycemic drugs; I25.2 Old myocardial infarction
CPT/HCPCS: 36415; 71046; 80053; 81003; 83036; 83735; 84443; 84484; 85025; 85027; 85610; 85730; 93005; 96365; 96366; 96367; 96368; 99285

== ENCOUNTER → 2023-08-04 | Outpatient (CLI) | payer OTHER ==
--- NOTE | 2023-08-04 17:36 | CT ---
EXAMINATION TYPE: CT abdomen pelvis wo con CT DLP: 1226 mGycm, Automated exposure control for dose reduction was used. DATE OF EXAM: 08/04/2023 5:14 PM COMPARISON: CT abdomen pelvis most recent from 10/17/2021 CLINICAL INDICATION:Male, 58 years old with history of KSP-R10.9; Right flank pain x 3 weeks TECHNIQUE: Axial CT abdomen pelvis wo con;Sagittal and coronal reformats were created on a separate workstation. Contrast used: mL of , (none if empty) Oral contrast used: without Oral Contrast (none if empty) FINDINGS: LOWER CHEST: Unremarkable ABDOMEN LIVER: Diffusely hypoattenuating parenchyma. GALLBLADDER AND BILE DUCTS: Unremarkable. PANCREAS: Unremarkable. SPLEEN: Unremarkable. ADRENAL GLANDS: Unremarkable. KIDNEYS AND URETERS: No evidence of hydronephrosis or renal calculus. The ureters are unremarkable. R ight renal cysts with thin calcification measuring up to 12 mm. PELVIS BLADDER: Unremarkable REPRODUCTIVE: Unremarkable. ABDOMEN & PELVIS STOMACH AND BOWEL: No evidence of bowel obstruction. The appendix is normal. PERITONEUM/RETROPERITONEUM: No evidence of pneumoperitoneum or free fluid. VASCULATURE: No evidence of aortic aneurysm. MUSCULOSKELETAL: No acute osseous abnormalities. Moderate disc degeneration changes are present throu ghout the thoracolumbar spine. LYMPH NODES: No gross evidence for lymphadenopathy. SOFT TISSUE/ABDOMINAL WALL: Fat-containing left inguinal hernia. Similar appearance to the right ingu inal region with soft tissue extending lateral right from the urinary bladder. Unchanged from 10/18/19 22. IMPRESSION: 1. No evidence for obstructive uropathy. The appendix is normal. No renal calculi. 2. Hepatic steatosis. 3. Left fat-containing inguinal hernia and stable soft tissue near the right inguinal canal. This co uld be secondary to prior surgery.
== END | disposition home or self-care (01) ==
LOC: RADCTMAIN 16:51
PROVIDERS: ATTEND Family Medicine
DX: K76.0 Fatty (change of) liver, not elsewhere classified (principal); K40.30 Unilateral inguinal hernia, with obstruction, without gangrene, not specified as recurrent
CPT/HCPCS: 74176

== ENCOUNTER → 2023-10-01 | Outpatient (CLI) | payer OTHER ==
--- NOTE | 2023-10-01 14:37 | US ---
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 Correlate clinically.
== END | disposition home or self-care (01) ==
LOC: RADUSWWP 13:37
PROVIDERS: ATTEND Internal Medicine Clinical Cardiac Electrophysiology
DX: I10 Essential (primary) hypertension (principal); I70.1 Atherosclerosis of renal artery; Q27.1 Congenital renal artery stenosis
CPT/HCPCS: 93975

== ENCOUNTER → 2024-04-05 | Outpatient (CLI) | payer OTHER ==
[2024-04-05 10:35] LABS: Basophils # (A) 0.01 X 10*3/uL (0.00-0.10); Basophils % (A) 0.2 %; Eosinophils # (A) 0.37 X 10*3/uL (0.04-0.35); Eosinophils % (A) 6.9 %; HCT 46.7 % (37.2-50.0); HGB 15.5 g/dL (12.0-17.0); Lymphocytes % (A) 13.1 %; MCH 28.2 pg (27.0-32.0); MCHC 33.2 g/dL (32.0-37.0); MCV 84.9 FL (80.0-97.0); Mean Platelet Volume 9.1 FL (9.5-12.2); Monocytes # (A) 0.81 X 10*3/uL (0.20-1.00); Monocytes % (A) 15.1 %; NRBC Per 100 WBC 0 X 10*3/uL (0.00-0.01); Neutrophils # (A) 3.45 X 10*3/uL (1.80-7.70); Neutrophils % (A) 64.3 %; Platelet Count 248 X 10*3/uL (140-440); RDW 13.3 % (11.5-14.5); WBC 5.36 X 10*3/uL (4.50-10.00)
[2024-04-05 11:19] LABS: ALT 34 U/L (8-49); AST 28 U/L (13-35); Albumin 4.4 g/dL (3.8-4.9); Albumin/Globulin Ratio 1.69 Ratio (1.60-3.17); Alkaline Phosphatase 88 U/L (41-126); Blood Urea Nitrogen 17.1 mg/dL (9.0-27.0); Calcium 9.5 mg/dL (8.7-10.3); Carbon Dioxide 22.5 mmol/L (21.6-31.8); Chloride 104 mmol/L (96-109); Chol/HDL Ratio 3.72 Ratio; Globulin 2.6 g/dL (1.6-3.3); Glucose 122 mg/dL (70-110); LDL Cholesterol,Calculated 64.7 mg/dL (0.0-131.0); Potassium 3.9 mmol/L (3.5-5.5); Sodium 140 mmol/L (135-145); Total Bilirubin 0.5 mg/dL (0.3-1.2)
[2024-04-06 07:25] LABS: Cryptosporidium Antigen Negative (Negative)
[2024-04-07 12:59] LABS: Calprotectin, Stool 71.8 mcg/g (<50)
== END | disposition home or self-care (01) ==
LOC: LABWHC1 07:26
PROVIDERS: ATTEND Family Medicine
CPT/HCPCS: 36415; 80053; 80061; 82043; 82570; 83630; 83993; 84443; 85025; 87045; 87046; 87328; 87329; 87338

== ENCOUNTER → 2024-04-27 | Outpatient (CLI) | payer OTHER ==
[2024-04-28 00:52] LABS: Gliadin AB IgA, Deaminated Negative (Negative); Gliadin AB IgA, Unit 0.9 U/mL; Gliadin AB IgG, Deaminated Positive (Negative); Gliadin AB IgG, Unit 39.8 U/mL
== END | disposition home or self-care (01) ==
LOC: LABWHC1 14:46
PROVIDERS: ATTEND Nurse Practitioner Family
DX: K52.9 Noninfective gastroenteritis and colitis, unspecified (principal)
CPT/HCPCS: 36415; 83516; 85652; 86140

== ENCOUNTER 2024-06-14 07:38 | Day surgery (SDC) | payer OTHER ==
[2024-06-14] MEDS: IV FLUID CONTINUATION 1,000 ML IV ONE (08:06)
[2024-06-14 08:32] LABS: Glucose,Whole Blood 118 mg/dL (70-110)
[2024-06-14 08:39] VITALS: RESP 16; TEMP 98
[2024-06-14] MEDS ORDERED: LIDOCAINE 1% INJ 10MG/ML (20 ML MDV) ONE (09:13)
[2024-06-14] MEDS ORDERED: PROPOFOL 10 MG/ML 20 ML VIAL IV ONE (09:13)
--- NOTE | 2024-06-14 09:30 | P.PCN ---
Date of Procedure: 06/14/24 Procedure(s) Performed: Brief history: Patient is a pleasant 59-year-old white female scheduled for an elective upper endoscopy as well as colonoscopy as a part of evaluation of abdominal pain and chronic diarrhea for the last 12 months duration Procedure performed: Esophagogastroduodenoscopy biopsy Colonoscopy with biopsy Preoperative diagnosis: Abdominal pain Chronic diarrhea [place] [facility] [facility] [place]: After informed consent was obtained from the patient was brought into the endoscopy unit and IV sedation was administered by anesthesia under continuous monitoring. Initially upper endoscopy was done. The Olympus GF 160 video endoscope was inserted inserted into the mouth and esophagus intubated without any difficulty and was gradually advanced into the stomach and duodenum and carefully examined. The bulb and mild duodenitis and second part of the duodenum appeared normal. These were done from the duodenum to rule out celiac disease. The scope was then withdrawn into the stomach adequately insufflated with air and upon careful examination the antrum had mild gastritis and biopsies were done from this area. Mucosa of the body, cardia and fundus appeared normal. The scope was then withdrawn into the esophagus. The GE junction was located at 40 cm to the incisors. It appeared regular with no erythema erosions or ulcerations. Rest of the esophagus appeared normal. Patient tolerated the procedure well. At this time the patient continued to remain sedation. Initial digital rectal examination was normal. Olympus CF 160 video colonoscope was then inserted into the rectum and gradually advanced to the cecum without any difficulty. Careful examination was performed as the scope was gradually being withdrawn. The prep was excellent. The cecum, ascending colon, transverse colon, descending colon, normal-appearing the sigmoid colon there was a 3 mm polyp that was removed by cold biopsy. Rest of the sigmoid colon and rectum appeared normal. Biopsies were done from the ascending and descending colon rule out microscopic/collagenous colitis retroflexion was performed in the rectum and no lesions were noted. Patient tolerated the procedure well. Impression: 1. Upper endoscopy revealed antral gastritis and mild duodenitis evidence of peptic ulcer disease. 2. Colonoscopy revealed 4 mm sigmoid colon polyp status post cold biopsy and rest of the colon appeared normal Recommendations: Findings of this examination were discussed with the patient as well as her family. She was advised to follow-up with the biopsy results. Biopsy reveals adenoma he can have repeat colonoscopy in 5 years he was advised to follow-up in the office in 2 weeks.
[2024-06-14 10:00] VITALS: BP 153/85; PULSE 84
== END 2024-06-14 10:10 | disposition home or self-care (01) ==
LOC: ORWHC2ENDO 07:38
PROVIDERS: ATTEND Internal Medicine Gastroenterology
DX: K29.50 Unspecified chronic gastritis without bleeding (principal); K29.80 Duodenitis without bleeding; K52.9 Noninfective gastroenteritis and colitis, unspecified; K63.5 Polyp of colon; I48.91 Unspecified atrial fibrillation; E78.5 Hyperlipidemia, unspecified; E11.9 Type 2 diabetes mellitus without complications; I10 Essential (primary) hypertension; G47.33 Obstructive sleep apnea (adult) (pediatric); F32.A Depression, unspecified; I25.2 Old myocardial infarction; Z79.02 Long term (current) use of antithrombotics/antiplatelets; Z79.899 Other long term (current) drug therapy; Z79.01 Long term (current) use of anticoagulants; Z79.84 Long term (current) use of oral hypoglycemic drugs; Z98.890 Other specified postprocedural states
CPT/HCPCS: 88305; 45380; 43239; J2003; J2704

== ENCOUNTER → 2024-08-23 | Outpatient (CLI) | payer OTHER ==
[2024-08-23 15:23] VITALS: BP 150/83; PULSE 94; RESP 16; TEMP 98.5
--- NOTE | 2024-08-23 15:53 | P.SLEEP ---
History of Present Illness DATE: 08/23/2024 CONSULTATION/NEW PATIENT EVALUATION HISTORY OF PRESENT ILLNESS/SLEEP-WAKE EVALUATION: 59-year-old gentleman had been evaluated in the sleep center for obstructive sleep apnea hypopnea syndrome. Patient was in our sleep center in July 2019. Patient continued to use his BiPAP equipment every night. Patient did not bring his BiPAP unit, so I cannot check it. SLEEP SCHEDULE: Usually sleep schedule from 10 PM to 6 AM 7 days a week. FALLING ASLEEP: Sometimes patient has difficulties with falling asleep. DURING SLEEP: According to patient he does not snore with the machine, but still may wake up from sleep. No history of hypnogogical hallucinations, sleep paralysis, or cataplexy. DURING THE DAY/WAKE STATE: In the morning patient wake up tired. Mullins sleepiness scale is increased to 11. Patient takes nap at 3 PM. PAST MEDICAL HISTORY: Atrial fibrillation, hypertension, anxiety, depression, diabetes mellitus. PAST SURGICAL HISTORY: Nasal fracture. MEDICATIONS: Lipitor, losartan, aspirin, amlodipine, Lopressor, duloxetine, buspirone, metformin. SOCIAL HISTORY: Please see below. FAMILY HISTORY: Please see below. REVIEW OF SYSTEMS: Awakenings from sleep, sleepiness during the day. No fevers. No double vision. No recent chest pain. No shortness of breath. No abdominal pain. No bleeding episodes. No blood in urine. No seizure episodes. PHYSICAL EXAMINATION: GENERAL: A pleasant patient without any distress. VITAL SIGNS: Please see below, weight 258 pounds, BMI 37.5. HEENT: PERRLA, EOMI. Evaluation of oropharynx showed tongue protrudes midline, low position of soft palate Mallampati 3. NECK: Supple. No JVD. Thyroid is not palpable. 18.5 inches in circumference. LUNGS: Clear to percussion and to auscultation. Good air exchange. No wheezing or rhonchi. HEART: S1, S2 irregular. No murmurs, gallops or rubs. ABDOMEN: Soft and nontender. Bowel sounds are present. No organomegaly appreciated. EXTREMITIES: No clubbing or cyanosis. CONCRETE ENGINEER: Awake, alert, and oriented x3. Cranial nerves 2 to 7 intact. There is no fasciculation or atrophy noted. No focal deficits observed. ASSESSMENT: 1. Obstructive sleep apnea hypopnea syndrome for many years, last time seen in our center 5 years ago. Patient continued to use BiPAP equipment every night. No information from BiPAP unit. Extremely low position of soft palate Mallampati 3. 2. Obesity, BMI 37.5. 3. Atrial fibrillation. 4. Hypertension. 5 diabetes mellitus. 6 . History of anxiety. 7. History of depression. 8. Status post nasal fracture in the past. PLAN: 1. Prescription for all necessary BiPAP supplies. 2. Follow-up visit in 1-2 months to check BiPAP unit and to make decision for possible necessity about repeating BiPAP titration. 3. Preferable position during sleep on the side. 4. No driving if patient feels any sleepiness. Patient is aware of civil and criminal liability for unsafe driving. 5. Sleep hygiene with regular sleep time for at least 7.5-8 hours. 6. Watching and losing weight. Thank you very much for referring this patient for consultation. Sincerely, Jaspal Castellanos MD, PhD, FAASM. Diplomat of [place] [employer], Sleep Medicine Board by [place] [employer] [place] [employer] Maintenance Custodian of [facility] [place] cc: Tina Rondon MD, Peter Baker MD Past Medical History Past Medical History: Atrial Fibrillation, Diabetes Mellitus, Hyperlipidemia, Hypertension, Myocardial Infarction (DC), Sleep Apnea/CPAP/BIPAP Additional Past Medical History / Comment(s): "Paroxysmal Afib/tachycardia - caused by drinking cold fluids." Hx kidney stones, BIPAP use, Type II DM Last Myocardial Infarction Date:: 01/22/18 History of Any Multi-Drug Resistant Organisms: None Reported Past Surgical History: Heart Catheterization With Stent, Hernia Repair, Orthopedic Surgery Additional Past Surgical History / Comment(s): Lower back surgery x2, right inguinal hernia repair with mesh, umbilical hernia with mesh, colonoscopy with benign polypectomy, 1 cardiac stent. Past Anesthesia/Blood Transfusion Reactions: No Reported Reaction Date of Last Stent Placement:: 01/23/18 Past Psychological History: Depression Additional Psychological History / Comment(s): Pt resides with his spouse. He is independent. 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 He has employment stress. He is on medication for his depression that is helpful. Smoking Status: Never smoker Past Alcohol Use History: Rare Past Drug Use History: None Reported - Past Family History Father Family Medical History: Cancer, Coronary Artery Disease (CAD), Diabetes Mellitus, Hyperlipidemia, Sleep Apnea/CPAP/BIPAP, Thyroid Disorder Additional Family Medical History / Comment(s): Father is from stomach/esophageal cancer. Mother Family Medical History: Cancer Additional Family Medical History / Comment(s): Mother has had kidney stones, depression and high triglycerides. Skin cancer. Medications and Allergies Home Medications Medication Instructions Recorded Confirmed Type metFORMIN HCL [Glucophage] 1,000 mg PO DAILY 01/22/18 06/14/24 History Atorvastatin [Lipitor] 80 mg PO DAILY #90 tab 01/24/18 06/14/24 Rx Semaglutide [Ozempic] 0.5 mg SQ MORALES 06/17/23 06/14/24 History Valsartan [Diovan] 320 mg PO DAILY 06/17/23 06/14/24 History Venlafaxine HCl [Effexor XR] 150 mg PO DAILY 06/17/23 06/14/24 History busPIRone HCL 7.5 mg PO BID 06/17/23 06/14/24 History hydroCHLOROthiazide [Hydrodiuril] 25 mg PO DAILY 06/17/23 06/14/24 History Apixaban [Eliquis] 5 mg PO BID 30 Days #60 tab 06/20/23 06/14/24 Rx Clopidogrel [Plavix] 75 mg PO DAILY 30 Days #30 tab 06/20/23 06/14/24 Rx Metoprolol Tartrate [Lopressor] 75 mg PO BID 30 Days #60 tab 06/20/23 06/14/24 Rx Multivitamin [Multivitamins Adult 1 tab PO DAILY 06/13/24 06/14/24 History Gummies] Allergies Allergy/AdvReac Type Severity Reaction Status Date / Time No Known Allergies Allergy Verified 06/14/24 08:11 Physical Exam Vitals: Vital Signs Temp Pulse Resp BP Pulse Ox 08/23/24 15:22 98.5 F 94 16 150/83 96 Sleep Note - Sleep Data ESS Total: 11 - Sleep Note Sleep Note: Temperature: 98.5 F Pulse Rate: 94 Respiratory Rate: 16 Blood Pressure: 150/83 SpO2: 96 Height: Weight: BMI: Neck Circumference: 18.5
== END ==
LOC: 3 N SLEEP 15:05
PROVIDERS: ATTEND Internal Medicine
DX: G47.33 Obstructive sleep apnea (adult) (pediatric) (principal); E66.9 Obesity, unspecified; E11.9 Type 2 diabetes mellitus without complications; I48.91 Unspecified atrial fibrillation; I10 Essential (primary) hypertension; Z99.89 Dependence on other enabling machines and devices; Z68.37 Body mass index [BMI] 37.0-37.9, adult; Z86.59 Personal history of other mental and behavioral disorders; Z87.81 Personal history of (healed) traumatic fracture
CPT/HCPCS: 99211

== ENCOUNTER → 2024-10-11 | Outpatient (CLI) | payer OTHER | LOC: 3 N SLEEP 15:55 | PROVIDERS: ATTEND Internal Medicine | DX: Z53.21 Procedure and treatment not carried out due to patient leaving prior to being seen by health care provider (principal) ==

== ENCOUNTER 2024-12-14 00:33 | Observation (INO) | payer OTHER ==
[2024-12-14] MEDS: SODIUM CHLORIDE 0.9% 500 ML 500 ML IV STA (00:57)
[2024-12-14] MEDS: METOPROLOL TARTRATE 5 MG/5 ML VIAL IVP STA ×3 (00:58→02:09)
[2024-12-14 01:03] LABS: Basophils # (A) 0.02 10*3/uL (0.00-0.10); Basophils % (A) 0.3 %; Eosinophils # (A) 0.49 10*3/uL (0.04-0.35); Eosinophils % (A) 7.2 %; HCT 50.4 % (39.6-50.0); HGB 17.2 g/dL (13.0-17.0); Lymphocytes # (A) 1.14 10*3/uL (0.90-5.00); Lymphocytes % (A) 16.7 %; MCH 28.7 pg (27.0-32.0); MCHC 34.1 g/dL (32.0-37.0); MCV 84.1 fL (80.0-97.0); Mean Platelet Volume 8.6 fL (9.5-12.2); Monocytes # (A) 0.93 10*3/uL (0.20-1.00); Monocytes % (A) 13.6 %; Neutrophils # (A) 4.24 10*3/uL (1.80-7.70); Neutrophils % (A) 61.9 %; Platelet Count 283 10*3/uL (140-440); RBC 5.99 10*6/uL (4.40-5.60); RDW 13.8 % (11.5-14.5); WBC 6.84 10*3/uL (4.50-10.00)
[2024-12-14 01:22] LABS: ALT 33 U/L (4-49); AST 42 U/L (17-59); African American GFR (CKD) >90 (>60 ml/min/1.73 sqM); Albumin 4.7 g/dL (3.5-5.0); Alkaline Phosphatase 120 U/L (38-126); Anion Gap 14 mmol/L; Blood Urea Nitrogen 17 mg/dL (9-20); Carbon Dioxide 20 mmol/L (22-30); Chloride 104 mmol/L (98-107); Glucose 169 mg/dL (74-99); Magnesium 1.7 mg/dL (1.6-2.3); Non-African American GFR(CKD) >90 (>60 ml/min/1.73 sqM); Potassium 3.9 mmol/L (3.5-5.1); Sodium 138 mmol/L (137-145); Total Bilirubin 0.5 mg/dL (0.2-1.3); Total Protein 7.8 g/dL (6.3-8.2)
--- NOTE | 2024-12-14 01:43 | ED ---
Arrhythmia/Palpitations HPI - General Chief Complaint: Arrhythmia/Palpitations Stated Complaint: A-Fib, tachycardia Time Seen by Provider: 12/14/24 00:39 Source: patient, RN notes reviewed Mode of arrival: ambulatory Limitations: no limitations - History of Present Illness Initial Comments: 59-year-old male presents emergency department chief complaint of palpitations. Patient states he feels like his heart is racing states he does have a history of A-fib and states that he was advised by his interior design instructor when he starts feeling symptoms, Emergency Department. Chest pain no shortness of breath no abdominal pain denies any recent illnesses. Patient states he was late and his medications today but states he did not miss any doses. Chills denies leg pain or leg swelling. - Related Data Home Medications Medication Instructions Recorded Confirmed metFORMIN HCL [Glucophage] 1,000 mg PO DAILY 01/22/18 06/14/24 Semaglutide [Ozempic] 0.5 mg SQ MORALES 06/17/23 06/14/24 Valsartan [Diovan] 320 mg PO DAILY 06/17/23 06/14/24 Venlafaxine HCl [Effexor XR] 150 mg PO DAILY 06/17/23 06/14/24 busPIRone HCL 7.5 mg PO BID 06/17/23 06/14/24 hydroCHLOROthiazide [Hydrodiuril] 25 mg PO DAILY 06/17/23 06/14/24 Multivitamin [Multivitamins Adult 1 tab PO DAILY 06/13/24 06/14/24 Gummies] Previous Rx's Medication Instructions Recorded Atorvastatin [Lipitor] 80 mg PO DAILY #90 tab 01/24/18 Apixaban [Eliquis] 5 mg PO BID 30 Days #60 tab 06/20/23 Clopidogrel [Plavix] 75 mg PO DAILY 30 Days #30 tab 06/20/23 Metoprolol Tartrate [Lopressor] 75 mg PO BID 30 Days #60 tab 06/20/23 Allergies Allergy/AdvReac Type Severity Reaction Status Date / Time No Known Allergies Allergy Verified 12/14/24 00:38 Review of Systems ROS Statement: Those systems with pertinent positive or pertinent negative responses have been documented in the HPI. ROS Other: All systems not noted in ROS Statement are negative. Past Medical History Past Medical History: Atrial Fibrillation, Diabetes Mellitus, Hyperlipidemia, Hypertension, Myocardial Infarction (CT), Sleep Apnea/CPAP/BIPAP Additional Past Medical History / Comment(s): "Paroxysmal Afib/tachycardia - caused by drinking cold fluids." Hx kidney stones, BIPAP use, Type II DM Last Myocardial Infarction Date:: 01/22/18 History of Any Multi-Drug Resistant Organisms: None Reported Past Surgical History: Heart Catheterization With Stent, Hernia Repair, Orthopedic Surgery Additional Past Surgical History / Comment(s): Lower back surgery x2, right inguinal hernia repair with mesh, umbilical hernia with mesh, colonoscopy with benign polypectomy, 1 cardiac stent. Past Anesthesia/Blood Transfusion Reactions: No Reported Reaction Date of Last Stent Placement:: 01/23/18 Past Psychological History: Depression Smoking Status: Never smoker Past Alcohol Use History: Rare Past Drug Use History: None Reported - Past Family History Father Family Medical History: Cancer, Coronary Artery Disease (CAD), Diabetes Mellitus, Hyperlipidemia, Sleep Apnea/CPAP/BIPAP, Thyroid Disorder Additional Family Medical History / Comment(s): Father is from stomach/esophageal cancer. Mother Family Medical History: Cancer Additional Family Medical History / Comment(s): Mother has had kidney stones, depression and high triglycerides. Skin cancer. General Exam Limitations: no limitations General appearance: alert, in no apparent distress Head exam: Present: atraumatic, normocephalic, normal inspection Eye exam: Present: normal appearance, PERRL, EOMI. Absent: scleral icterus, conjunctival injection, periorbital swelling ENT exam: Present: normal exam, mucous membranes moist Neck exam: Present: normal inspection, full ROM. Absent: tenderness, meningismus, lymphadenopathy Respiratory exam: Present: normal lung sounds bilaterally. Absent: respiratory distress, wheezes, rales, rhonchi, stridor Cardiovascular Exam: Present: tachycardia, irregular rhythm, normal heart sounds. Absent: regular rate, normal rhythm, systolic murmur, diastolic murmur, rubs, gallop, clicks GI/Abdominal exam: Present: soft, normal bowel sounds. Absent: distended, tenderness, guarding, rebound, rigid Course Vital Signs 12/14/24 12/14/24 12/14/24 00:34 00:50 01:03 Temperature 98.2 F Pulse Rate 120 H 146 H 111 H Respiratory 18 Rate Blood Pressure 142/86 O2 Sat by Pulse 99 Oximetry 12/14/24 12/14/24 12/14/24 01:05 01:22 01:49 Temperature Pulse Rate 112 H 101 H 98 Respiratory 18 18 Rate Blood Pressure 132/97 133/93 O2 Sat by Pulse 96 Oximetry 12/14/24 12/14/24 02:09 02:12 Temperature Pulse Rate 100 Respiratory 18 Rate Blood Pressure 126/75 O2 Sat by Pulse 95 Oximetry EKG Findings - EKG Comments: EKG Findings:: EKG performed at 00: 47 A-fib with RVR rate of 126 QRS 96 QT/QTc 284/[address] elevation or depression noted. - EKG Results: EKG: interpreted by [facility] Medical Decision Making - Medical Decision Making was pt. sent in by a medical professional or institution (, PA, COATER, urgent care, hospital, or long term...) When possible be specific @ -No Did you speak to anyone other than the patient for history (EMS, parent, family, police, friend...)? What history was obtained from this source @ -No Did you review nursing and triage notes (agree or disagree)? Why? @ -I reviewed and agree with nursing and triage notes Were old charts reviewed (outside hosp., previous admission, EMS record, old EKG, old radiological studies, urgent care reports/EKG's, long term records)? Report findings @ -No old charts were reviewed Differential Diagnosis (chest pain, altered mental status, abdominal pain women, abdominal pain men, vaginal bleeding, weakness, fever, dyspnea, syncope, headache, dizziness, GI bleed, back pain, seizure, CVA, palpatations, mental health, musculoskeletal)? @ -Differential Palpitations Ventricular arrhythmias, atrial arrhythmias, myocardial infarction, anemia, thyrotoxicosis, electrolyte imbalance, hypokalemia, pulmonary embolism, pulmonary disease, drugs, alcohol, anxiety, stress.... This is not meant to be an all-inclusive list. EKG interpreted by me (3pts min.). @ -As above X-rays interpreted by me (1pt min.). @ -Chest x-ray shows no acute cardiopulmonary process CT interpreted by me (1pt min.). @ -None done U/S interpreted by me (1pt. min.). @ -None done What testing was considered but not performed or refused? (CT, X-rays, U/S, labs)? Why? @ -None What meds were considered but not given or refused? Why? @ -None Did you discuss the management of the patient with other professionals (kayleen hall i.e. , PA, COATER, lab, RT, psych nurse, social media content manager, industrial relations officer, teacher, driver's license reviewing officer, employment evaluator/case manager)? Give summary @ -EMH for admission Was smoking cessation discussed for >3mins.? @ -No Was critical care preformed (if so, how long)? @ -No Were there social determinants of health that impacted care today? How? (Homelessness, low income, unemployed, alcoholism, drug addiction, transportatio n, low edu. Level, literacy, decrease access to med. care, long-term, rehab)? @ -No Was there de-escalation of care discussed even if they declined (Discuss DNR or withdrawal of care, Hospice)? DNR status @ -No What co-morbidities impacted this encounter? (DM, HTN, Smoking, COPD, CAD, Cancer, CVA, ARF, Chemo, Hep., AIDS, mental health diagnosis, sleep apnea, morbid obesity)? @ -A-fib, CAD Was patient admitted / discharged? Hospital course, mention meds given and route, prescriptions, significant lab abnormalities, going to OR and other pertinent info. @ -Admitted patient presented for palpitations found to be in A-fib RVR patient was given 3 doses of metoprolol heart rate between 91 in the 100s. Patient remains to be symptomatic. Patient is currently anticoagulated will continue on Eliquis will continue on oral beta-blockers or additional IV meds as needed and cardiology evaluation. Undiagnosed new problem with uncertain prognosis? @ -No Drug Therapy requiring intensive monitoring for toxicity (Heparin, Nitro, Insulin, Cardizem)? @ -No Were any procedures done? @ -No Diagnosis/symptom? @ -A-fib RVR chest pain Acute, or Chronic, or Acute on Chronic? @ -Acute Uncomplicated (without systemic symptoms) or Complicated (systemic symptoms)? @ -Complicated Side effects of treatment? @ -No Exacerbation, Progression, or Severe Exacerbation? @ -No Poses a threat to life or bodily function? How? (Chest pain, USA, CT, pneumonia, PE, COPD, DKA, ARF, appy, cholecystitis, CVA, Diverticulitis, Homicidal, Suicidal, threat to staff... and all critical care pts) @ -Yes A-fib, chest pain, risk of cardiac function - Lab Data Result diagrams: 12/14/24 00:54 12/14/24 00:54 Lab Results 12/14/24 12/14/24 12/14/24 Range/Units 00:54 00:54 00:54 WBC 6.84 (4.50-10.00) 10*3/uL RBC 5.99 H (4.40-5.60) 10*6/uL Hgb 17.2 H (13.0-17.0) g/dL Hct 50.4 H (39.6-50.0) % MCV 84.1 (80.0-97.0) fL MCH 28.7 (27.0-32.0) pg MCHC 34.1 (32.0-37.0) g/dL Plt Count 283 (140-440) 10*3/uL MPV 8.6 L (9.5-12.2) fL Immature Gran % (Auto) 0.3 % Neutrophils % 61.9 % Lymphocytes % 16.7 % Monocytes % 13.6 % Eosinophils % 7.2 % Basophils % 0.3 % Immature Gran # 0.02 (0.00-0.04) 10*3/uL Neutrophils # 4.24 (1.80-7.70) 10*3/uL Lymphocytes # 1.14 (0.90-5.00) 10*3/uL Monocytes # 0.93 (0.20-1.00) 10*3/uL Eosinophils # 0.49 H (0.04-0.35) 10*3/uL Basophils # 0.02 (0.00-0.10) 10*3/uL PT 10.6 (10.0-12.5) sec INR 0.9 (<1.2) APTT 25.5 (22.0-30.0) sec Sodium 138 (137-145) mmol/L Potassium 3.9 (3.5-5.1) mmol/L Chloride 104 (98-107) mmol/L Carbon Dioxide 20 L (22-30) mmol/L Anion Gap 14 mmol/L BUN 17 (9-20) mg/dL Creatinine 0.86 (0.66-1.25) mg/dL Est GFR (CKD-EPI)AfAm >90 (>60 ml/min/1.73 sqM) Est GFR (CKD-EPI)NonAf >90 (>60 ml/min/1.73 sqM) Glucose 169 H (74-99) mg/dL Calcium 10.0 (8.4-10.2) mg/dL Magnesium 1.7 (1.6-2.3) mg/dL Total Bilirubin 0.5 (0.2-1.3) mg/dL AST 42 (17-59) U/L ALT 33 (4-49) U/L Alkaline Phosphatase 120 (38-126) U/L Troponin I (0.000-0.034) ng/mL Total Protein 7.8 (6.3-8.2) g/dL Albumin 4.7 (3.5-5.0) g/dL 12/14/24 Range/Units 00:54 WBC (4.50-10.00) 10*3/uL RBC (4.40-5.60) 10*6/uL Hgb (13.0-17.0) g/dL Hct (39.6-50.0) % MCV (80.0-97.0) fL MCH (27.0-32.0) pg MCHC (32.0-37.0) g/dL Plt Count (140-440) 10*3/uL MPV (9.5-12.2) fL Immature Gran % (Auto) % Neutrophils % % Lymphocytes % % Monocytes % % Eosinophils % % Basophils % % Immature Gran # (0.00-0.04) 10*3/uL Neutrophils # (1.80-7.70) 10*3/uL Lymphocytes # (0.90-5.00) 10*3/uL Monocytes # (0.20-1.00) 10*3/uL Eosinophils # (0.04-0.35) 10*3/uL Basophils # (0.00-0.10) 10*3/uL PT (10.0-12.5) sec INR (<1.2) APTT (22.0-30.0) sec Sodium (137-145) mmol/L Potassium (3.5-5.1) mmol/L Chloride (98-107) mmol/L Carbon Dioxide (22-30) mmol/L Anion Gap mmol/L BUN (9-20) mg/dL Creatinine (0.66-1.25) mg/dL Est GFR (CKD-EPI)AfAm (>60 ml/min/1.73 sqM) Est GFR (CKD-EPI)NonAf (>60 ml/min/1.73 sqM) Glucose (74-99) mg/dL Calcium (8.4-10.2) mg/dL Magnesium (1.6-2.3) mg/dL Total Bilirubin (0.2-1.3) mg/dL AST (17-59) U/L ALT (4-49) U/L Alkaline Phosphatase (38-126) U/L Troponin I <0.012 (0.000-0.034) ng/mL Total Protein (6.3-8.2) g/dL Albumin (3.5-5.0) g/dL Critical Care Time Critical Care Time: Yes Total Critical Care Time: 35 Disposition Clinical Impression: Chest pain, Atrial fibrillation with rapid ventricular response Disposition: ADMITTED IP TO THIS HOSP Referrals: Tina Rondon MD [Primary Care Provider] - 1-2 days Time of Disposition: 02:37
[2024-12-14 02:01] LABS: INR 0.9 (<1.2); Partial Thromboplastin Time 25.5 sec (22.0-30.0); Prothrombin Time 10.6 sec (10.0-12.5)
[2024-12-14] MEDS ORDERED: NITROGLYCERIN SL TABS 0.4 MG TAB SUBLINGUAL PRN (02:37)
--- NOTE | 2024-12-14 04:02 | XR ---
EXAM: XR Chest, 2 Views CLINICAL HISTORY: ITS.REASON XR Reason: dysrhythmia TECHNIQUE: Frontal and lateral views of the chest. COMPARISON: No relevant prior studies available. IMPRESSION: 1. Cardiomegaly without acute cardiopulmonary abnormality.
[2024-12-14] MEDS: amLODIPine 10 MG TAB PO SCH (08:02)
[2024-12-14] MEDS: VENLAFAXINE HCL ER 150 MG CAP PO SCH (08:02)
[2024-12-14] MEDS: APIXABAN 5 MG TAB PO SCH (08:02)
[2024-12-14] MEDS: ATORVASTATIN 80 MG TAB PO SCH (08:03)
[2024-12-14] MEDS: METOPROLOL TARTRATE 25 MG TAB PO SCH ×2 (08:03→08:44)
[2024-12-14] MEDS: CLOPIDOGREL 75 MG TAB PO SCH (08:44)
[2024-12-14] MEDS: METOPROLOL TARTRATE 50 MG TAB PO SCH (08:50)
[2024-12-14] MEDS ORDERED: DEXTROSE 50% SYRINGE 50 ML IVP PRN ×2 (08:56)
--- NOTE | 2024-12-14 10:35 | P.CRDCN ---
History of Present Illness History of present illness: HISTORY OF PRESENT ILLNESS: This is a 59-year-old male with a past medical history significant for coronary artery disease with previous stenting, hypertension, hyperlipidemia, paroxysmal atrial fibrillation, and obesity. Patient follows in the office with Dr. Baker. We have been asked to see the patient in consultation for A-fib with RVR. Patient examined at the bedside in the emergency room. Patient presented to the emergency room with a chief complaint of palpitations. He denied having any chest pain or shortness of breath. Patient was found to be in A-fib with RVR. Patient was started on metoprolol. Patient does not take any AV faheem blocking agents on an outpatient basis. He remains in atrial fibrillation at the time of examination with a heart rate around [id number]. He did see Dr. Baker in the office on 12/01/2024 and he was noted to be in sinus mechanism at that time DIAGNOSTICS: - EKG reveals A-fib with RVR - Chest xray cardiomegaly without acute pulmonary process. - Laboratory data: WBC 6.84. Hemoglobin 17.2. Platelet count 283. Sodium 138. Potassium 3.9. BUN 17. Creatinine 0.86. Magnesium 1.7. Troponin negative x 3 - Current home cardiac medications include amlodipine 10 mg daily, valsartan 320 mg daily, Plavix 75 mg daily, Lipitor 80 mg daily, Eliquis 5 mg twice a day. - Patient underwent Lexiscan stress test in March 2023 which was negative for ischemia - Echocardiogram performed in January 2021 revealed ejection fraction 55% - Cardiac catheterization history: December 2017 with stenting of the proximal left circumflex REVIEW OF SYSTEMS: At the time of my exam: CONSTITUTIONAL: Denies fever or chills. HEENT: Denies blurred vision, vision changes, or eye pain. Denies hemoptysis CARDIOVASCULAR: Denies chest pain. Denies orthopnea. Denies PND. Reports palpitations RESPIRATORY: Denies shortness of breath. GASTROINTESTINAL: Denies abdominal pain. Denies nausea or vomiting. HEMATOLOGIC: Denies bleeding disorders. GENITOURINARY: Denies any blood in urine. SKIN: Denies pruitis. Denies rash. PHYSICAL EXAM: VITAL SIGNS: Reviewed. GENERAL: Well-developed in no acute distress. HEENT: Head is normocephalic. Pupils are equal, round. Sclerae anicteric. Mucous membranes of the mouth are moist. Neck supple. No JVD or thyromegaly LUNGS: Respirations even and unlabored. Lungs essentially clear to auscultation bilaterally. HEART: Mildly tachycardic. Irregular rate and rhythm. S1 and S2 heard. ABDOMEN: Soft. Nondistended. Nontender. EXTREMITIES: Normal range of motion. No clubbing or cyanosis. Peripheral pulses intact. No lower extremity edema NEUROLOGIC: Awake and alert. Oriented x 3. ASSESSMENT: Palpitations Paroxysmal atrial fibrillation with RVR Coronary artery disease with previous stenting of the circumflex, 12/2017 Hypertension Hyperlipidemia Diabetes Obesity: BMI 34.7 History of obstructive sleep apnea with home use of BiPAP PLAN: Obtain 2D echo to assess cardiac structure and function Continue anticoagulation with Eliquis Patient not taking AV faheem blocking agents on an outpatient basis. Begin metop rolol tartrate 50 mg twice a day Continue telemetry monitoring Will attempt rate control at this time. Consider cardioversion/ablation on an outpatient basis Further recommendations pending patient course Nurse practitioner note has been reviewed by physician. Signing provider agrees with the documented findings, assessment, and plan of care documented by [employer] as a scribe. Past Medical History Past Medical History: Atrial Fibrillation, Diabetes Mellitus, Hyperlipidemia, Hypertension, Myocardial Infarction ([place]), Sleep Apnea/CPAP/BIPAP Additional Past Medical History / Comment(s): "Paroxysmal Afib/tachycardia - caused by drinking cold fluids." Hx kidney stones, BIPAP use, Type II DM Last Myocardial Infarction Date:: 01/22/18 History of Any Multi-Drug Resistant Organisms: None Reported Past Surgical History: Heart Catheterization With Stent, Hernia Repair, Orthopedic Surgery Additional Past Surgical History / Comment(s): Lower back surgery x2, right inguinal hernia repair with mesh, umbilical hernia with mesh, colonoscopy with benign polypectomy, 1 cardiac stent. Past Anesthesia/Blood Transfusion Reactions: No Reported Reaction Date of Last Stent Placement:: 01/23/18 Past Psychological History: Depression Smoking Status: Never smoker Past Alcohol Use History: Rare Past Drug Use History: None Reported - Past Family History Father Family Medical History: Cancer, Coronary Artery Disease (CAD), Diabetes Mellitus, Hyperlipidemia, Sleep Apnea/CPAP/BIPAP, Thyroid Disorder Additional Family Medical History / Comment(s): Father is from stomach/esophageal cancer. Mother Family Medical History: Cancer Additional Family Medical History / Comment(s): Mother has had kidney stones, depression and high triglycerides. Skin cancer. Medications and Allergies Home Medications Medication Instructions Recorded Confirmed Type metFORMIN HCL [Glucophage] 1,000 mg PO DAILY 01/22/18 12/14/24 History Atorvastatin [Lipitor] 80 mg PO DAILY #90 tab 01/24/18 12/14/24 Rx Semaglutide [Ozempic] 0.5 mg SQ MORALES 06/17/23 12/14/24 History Valsartan [Diovan] 320 mg PO DAILY 06/17/23 12/14/24 History Venlafaxine HCl [Effexor XR] 150 mg PO DAILY 06/17/23 12/14/24 History busPIRone HCL 7.5 mg PO HS 06/17/23 12/14/24 History Apixaban [Eliquis] 5 mg PO BID 30 Days #60 tab 06/20/23 12/14/24 Rx Clopidogrel [Plavix] 75 mg PO DAILY 30 Days #30 tab 06/20/23 12/14/24 Rx Cholecalciferol (Vitamin D3) 50 mcg PO DAILY 12/14/24 12/14/24 History [Vitamin D3 (50 Mcg = 2000 Iu)] Multivitamins, Thera [Multivitamin 1 tab PO DAILY 12/14/24 12/14/24 History (formulary)] Ubidecarenone [Co Q-10] 300 mg PO DAILY 12/14/24 12/14/24 History amLODIPine [Norvasc] 10 mg PO DAILY 12/14/24 12/14/24 History busPIRone HCL 15 mg PO DAILY 12/14/24 12/14/24 History metFORMIN HCL [Glucophage] 500 mg PO HS 12/14/24 12/14/24 History Allergies Allergy/AdvReac Type Severity Reaction Status Date / Time No Known Allergies Allergy Verified 12/14/24 07:10 Physical Exam Vitals: Vital Signs Temp Pulse Resp BP Pulse Ox 12/14/24 07:51 96 18 124/87 98 12/14/24 06:59 93 16 12/14/24 03:26 96 18 122/85 95 12/14/24 02:12 18 126/75 95 12/14/24 02:09 100 12/14/24 01:49 98 18 133/93 96 12/14/24 01:22 101 H 12/14/24 01:05 112 H 18 132/97 12/14/24 01:03 111 H 12/14/24 00:50 146 H 12/14/24 00:34 98.2 F 120 H 18 142/86 99 Intake and Output 12/13/24 12/14/24 12/14/24 22:59 06:59 14:59 Other: Weight 112.945 kg Results 12/14/24 00:54 12/14/24 00:54 Cardiac Enzymes 12/14/24 12/14/24 12/14/24 Range/Units 00:54 00:54 02:52 AST 42 (17-59) U/L Troponin I <0.012 <0.012 (0.000-0.034) ng/mL 12/14/24 Range/Units 06:21 AST (17-59) U/L Troponin I <0.012 (0.000-0.034) ng/mL Coagulation 12/14/24 Range/Units 00:54 PT 10.6 (10.0-12.5) sec APTT 25.5 (22.0-30.0) sec CBC 12/14/24 Range/Units 00:54 WBC 6.84 (4.50-10.00) 10*3/uL RBC 5.99 H (4.40-5.60) 10*6/uL Hgb 17.2 H (13.0-17.0) g/dL Hct 50.4 H (39.6-50.0) % Plt Count 283 (140-440) 10*3/uL Comprehensive Metabolic Panel 12/14/24 Range/Units 00:54 Sodium 138 (137-145) mmol/L Potassium 3.9 (3.5-5.1) mmol/L Chloride 104 (98-107) mmol/L Carbon Dioxide 20 L (22-30) mmol/L BUN 17 (9-20) mg/dL Creatinine 0.86 (0.66-1.25) mg/dL Glucose 169 H (74-99) mg/dL Calcium 10.0 (8.4-10.2) mg/dL AST 42 (17-59) U/L ALT 33 (4-49) U/L Alkaline Phosphatase 120 (38-126) U/L Total Protein 7.8 (6.3-8.2) g/dL Albumin 4.7 (3.5-5.0) g/dL Current Medications Generic Name Dose Route Start Last Admin Trade Name Ken PRN Reason Stop Dose Admin Amlodipine Besylate 10 mg 12/14/24 09:00 12/14/24 08:02 Amlodipine 10 Mg Tab PO 10 mg DAILY [facility] Administration Apixaban 5 mg 12/14/24 09:00 12/14/24 08:02 Apixaban 5 Mg Tab PO 5 mg BID [facility] Administration Protocol Atorvastatin Calcium 80 mg 12/14/24 09:00 12/14/24 08:03 Atorvastatin 80 Mg Tab PO 80 mg DAILY [facility] Administration Buspirone HCl 7.5 mg 12/14/24 21:00 Buspirone Hcl 5 Mg Tab PO HS THRO Buspirone HCl 15 mg 12/15/24 09:00 Buspirone Hcl 5 Mg Tab PO DAILY [facility] Clopidogrel Bisulfate 75 mg 12/14/24 09:00 12/14/24 08:44 Clopidogrel 75 Mg Tab PO Not Given DAILY [facility] Dextrose/Water 25 ml 12/14/24 08:56 Dextrose 50% Syringe 50 Ml IVP PER PROTOCOL PRN Hypoglycemia Protocol Dextrose/Water 50 ml 12/14/24 08:56 Dextrose 50% Syringe 50 Ml IVP PER PROTOCOL PRN Hypoglycemia Protocol Insulin Human Lispro 0 unit 12/14/24 12:30 Insulin Lispro (Humalog) 100 Unit/Ml 10 Ml Vl SQ ACHS [facility] Protocol Metoprolol Tartrate 50 mg 12/14/24 09:00 12/14/24 08:50 Metoprolol Tartrate 50 Mg Tab PO Not Given BID [facility] Nitroglycerin 0.4 mg 12/14/24 02:37 Nitroglycerin Sl Tabs 0.4 Mg Tab SUBLINGUAL Q5M PRN Chest Pain Venlafaxine HCl 150 mg 12/14/24 09:00 12/14/24 08:02 Venlafaxine Hcl Er 150 Mg Cap PO 150 mg DAILY [facility] Administration Intake and Output 12/13/24 12/14/24 12/14/24 22:59 06:59 14:59 Other: Weight 112.945 kg 12/14/24 00:54 12/14/24 00:54
[2024-12-14] MEDS: MAGNESIUM SULFATE-D5W PMX 1 GM in DEXTROSE/WATER 1 100ML.BAG IVPB SCH (11:44)
[2024-12-14 12:22] LABS: Glucose,Whole Blood 139 mg/dL (70-110)
[2024-12-14] MEDS: INSULIN LISPRO (HumaLOG) 100 UNIT/ML 10 mL VL SQ SCH (12:38)
--- NOTE | 2024-12-14 15:27 | P.HPIM ---
History of Present Illness H&P Date: 12/14/24 Patient is a 59-year-old male with A-fib, diabetes, hyperlipidemia, hypertension, sleep apnea (BiPAP use), CAD with x 1 stent, depression here for evaluation of palpitations. He was watching tv at rest when he felt palpitations. He denied chest pain, shortness of breath, light headedness, dizziness, focal weakness, vision changes, speech changes, abdominal pain, extremity swelling. On admission: Vitals: Temp 98.2 F, OK 120, RR 18, BP 142/86, O2 saturation 99% on room air Labs: WBC 6.4, hemoglobin 17.2, MCV 84.1, platelet count 283,000, sodium 138, potassium 3.9, BUN 17, creatinine 0.86, glucose 169, magnesium 1.7. Liver enzymes within normal limits. Troponins negative. Coagulation panel within normal limits.. Imaging: EKG independently interpreted shows a atrial fibrillation with a rate of 126 bpm, no ST-T changes, QTc 358 MS. Chest xray showed no acute process. ED documentation reviewed. Review of systems: Pertinent positives and negatives as discussed in HPI, a complete review of systems was performed and all other systems are negative. Social history: Tobacco: never smoked Alcohol: rarely Recreational drugs: no history Travel: no recent prolonged travel Physical examination: Vital signs reviewed General: non toxic, no distress, appears at stated age, room air Derm: no unusual rashes/lesions, warm Head: atraumatic, normocephalic, symmetric Eyes: EOMI, anicteric sclera, pupils equal round reactive to light ENT: Nose and ears atraumatic Neck: No cervical lymphadenopathy, trachea midline, supple Mouth: no lip lesion, mucus membranes moist Cardiovascular: S1S2 irregular, no murmur Lungs: CTA bilateral, no rhonchi, no rales, no accessory muscle use Abdominal: soft, nondistended, nontender to palpation, no guarding Ext: muscle strength 5 out of 5 in all 4 extremities grossly, no gross muscle atrophy, no contractures, positive dorsalis pedis pulse bilateral, no edema Neuro: CN II-XI grossly intact, no gross focal neuro deficits Psych: Alert and oriented x 3, appropriate affect and mood Assessment/Plan: The patient is admitted with an anticipated less than 2 midnight stay for evaluation of AFib with RVR Active: # A-fib with RVR EKG independently interpreted shows a atrial fibrillation with a rate of 126 bpm, no ST-T changes, QTc 358 MS Troponins negative Continuous cardiac monitoring EKG as needed Received 3 doses of metoprolol 5 mg IVP in the ED. Resume home Lopressor p.o. to twice daily Continue on clopidogrel and Eliquis Echocardiogram ordered Cardiology consulted in the ED #Elevated hemoglobin, likely from dehydration Recheck CBC Chronic Conditions: #Diabetes mellitus Hemoglobin A1c 6.5 in 05/2023. A1c ordered today Hold home medications Glucose Accu-Cheks ACHS Initiate Insulin sliding scale ACHS Monitor for hypoglycemia # Hyperlipidemia #Hypertension #Sleep apnea (BiPAP use) #CAD with x 1 stent #Depression Resume home venlafaxine, buspirone, amlodipine, Lipitor 80 mg DVT ppx: Eliquis 5 mg p.o. twice daily CODE STATUS: Full Discussed with: Patient Anticipated discharge place: home Nikia Braxton MD PGY-1 Internal Medicine Dictation was produced using [employer] dictation software. please excuse any grammatical, word or spelling errors. Past Medical History Past Medical History: Atrial Fibrillation, Diabetes Mellitus, Hyperlipidemia, Hypertension, Myocardial Infarction ([place]), Sleep Apnea/CPAP/BIPAP Additional Past Medical History / Comment(s): "Paroxysmal Afib/tachycardia - caused by drinking cold fluids." Hx kidney stones, BIPAP use, Type II DM Last Myocardial Infarction Date:: 01/22/18 History of Any Multi-Drug Resistant Organisms: None Reported Past Surgical History: Heart Catheterization With Stent, Hernia Repair, Orthopedic Surgery Additional Past Surgical History / Comment(s): Lower back surgery x2, right inguinal hernia repair with mesh, umbilical hernia with mesh, colonoscopy with benign polypectomy, 1 cardiac stent. Past Anesthesia/Blood Transfusion Reactions: No Reported Reaction Date of Last Stent Placement:: 01/23/18 Past Psychological History: Depression Smoking Status: Never smoker Past Alcohol Use History: Rare Past Drug Use History: None Reported - Past Family History Father Family Medical History: Cancer, Coronary Artery Disease (CAD), Diabetes Mellitus, Hyperlipidemia, Sleep Apnea/CPAP/BIPAP, Thyroid Disorder Additional Family Medical History / Comment(s): Father is from stomach/esophageal cancer. Mother Family Medical History: Cancer Additional Family Medical History / Comment(s): Mother has had kidney stones, depression and high triglycerides. Skin cancer. Medications and Allergies Home Medications Medication Instructions Recorded Confirmed Type metFORMIN HCL [Glucophage] 1,000 mg PO DAILY 01/22/18 12/14/24 History Atorvastatin [Lipitor] 80 mg PO DAILY #90 tab 01/24/18 12/14/24 Rx Semaglutide [Ozempic] 0.5 mg SQ MORALES 06/17/23 12/14/24 History Valsartan [Diovan] 320 mg PO DAILY 06/17/23 12/14/24 History Venlafaxine HCl [Effexor XR] 150 mg PO DAILY 06/17/23 12/14/24 History busPIRone HCL 7.5 mg PO HS 06/17/23 12/14/24 History Apixaban [Eliquis] 5 mg PO BID 30 Days #60 tab 06/20/23 12/14/24 Rx Clopidogrel [Plavix] 75 mg PO DAILY 30 Days #30 tab 06/20/23 12/14/24 Rx Cholecalciferol (Vitamin D3) 50 mcg PO DAILY 12/14/24 12/14/24 History [Vitamin D3 (50 Mcg = 2000 Iu)] Multivitamins, Thera [Multivitamin 1 tab PO DAILY 12/14/24 12/14/24 History (formulary)] Ubidecarenone [Co Q-10] 300 mg PO DAILY 12/14/24 12/14/24 History amLODIPine [Norvasc] 10 mg PO DAILY 12/14/24 12/14/24 History busPIRone HCL 15 mg PO DAILY 12/14/24 12/14/24 History metFORMIN HCL [Glucophage] 500 mg PO HS 12/14/24 12/14/24 History Allergies Allergy/AdvReac Type Severity Reaction Status Date / Time No Known Allergies Allergy Verified 12/14/24 07:10 Physical Exam Vitals: Vital Signs Temp Pulse Resp BP Pulse Ox 12/14/24 06:59 93 16 12/14/24 03:26 96 18 122/85 95 12/14/24 02:12 18 126/75 95 12/14/24 02:09 100 12/14/24 01:49 98 18 133/93 96 12/14/24 01:22 101 H 12/14/24 01:05 112 H 18 132/97 12/14/24 01:03 111 H 12/14/24 00:50 146 H 12/14/24 00:34 98.2 F 120 H 18 142/86 99 Intake and Output 12/13/24 12/14/24 12/14/24 22:59 06:59 14:59 Other: Weight 112.945 kg Results CBC & Chem 7: 12/14/24 00:54 12/14/24 00:54 Labs: Abnormal Lab Results - Last 24 Hours (Table) 12/14/24 12/14/24 Range/Units 00:54 00:54 RBC 5.99 H (4.40-5.60) 10*6/uL Hgb 17.2 H (13.0-17.0) g/dL Hct 50.4 H (39.6-50.0) % MPV 8.6 L (9.5-12.2) fL Eosinophils # 0.49 H (0.04-0.35) 10*3/uL Carbon Dioxide 20 L (22-30) mmol/L Glucose 169 H (74-99) mg/dL
[2024-12-14] MEDS: DRONEDARONE 400 MG TAB PO SCH (16:51)
[2024-12-14 17:09] LABS: Glucose,Whole Blood 136 mg/dL (70-110)
[2024-12-14 19:57] LABS: Glucose,Whole Blood 162 mg/dL (70-110)
[2024-12-14] MEDS: busPIRone HCl 5 MG TAB PO SCH (20:58)
[2024-12-14 21:12] LABS: Chol/HDL Ratio 5.03 Ratio; HDL Cholesterol 35.4 mg/dL (40.00-60.00)
[2024-12-14 23:44] LABS: Glucose,Whole Blood 97 mg/dL (70-110)
[2024-12-15 05:59] LABS: Glucose,Whole Blood 141 mg/dL (70-110)
[2024-12-15 06:16] LABS: Basophils # (A) 0.02 10*3/uL (0.00-0.10); Basophils % (A) 0.2 %; Eosinophils # (A) 0.45 10*3/uL (0.04-0.35); Eosinophils % (A) 5.3 %; HCT 50.2 % (39.6-50.0); Lymphocytes % (A) 12.9 %; MCH 28.9 pg (27.0-32.0); MCHC 33.9 g/dL (32.0-37.0); MCV 85.4 fL (80.0-97.0); Monocytes # (A) 0.99 10*3/uL (0.20-1.00); Monocytes % (A) 11.6 %; Neutrophils # (A) 5.97 10*3/uL (1.80-7.70); Neutrophils % (A) 69.6 %; Platelet Count 312 10*3/uL (140-440); RBC 5.88 10*6/uL (4.40-5.60); RDW 13.6 % (11.5-14.5); WBC 8.56 10*3/uL (4.50-10.00)
[2024-12-15 06:38] LABS: African American GFR (CKD) >90 (>60 ml/min/1.73 sqM); Anion Gap 12 mmol/L; Blood Urea Nitrogen 18 mg/dL (9-20); Calcium 9.8 mg/dL (8.4-10.2); Carbon Dioxide 22 mmol/L (22-30); Chloride 102 mmol/L (98-107); Glucose 131 mg/dL (74-99); Non-African American GFR(CKD) 83 (>60 ml/min/1.73 sqM); Potassium 4.4 mmol/L (3.5-5.1); Sodium 136 mmol/L (137-145)
[2024-12-15 07:37] VITALS: BP 108/73; PULSE 109; TEMP 97.4
[2024-12-15 09:35] VITALS: RESP 18
--- NOTE | 2024-12-15 10:07 | P.PN ---
Subjective HISTORY OF PRESENT ILLNESS: This is a 59-year-old male with a past medical history significant for coronary artery disease with previous stenting, hypertension, hyperlipidemia, paroxysmal atrial fibrillation, and obesity. Patient follows in the office with Dr. Baker. We have been asked to see the patient in consultation for A-fib with RVR. Patient examined at the bedside in the emergency room. Patient presented to the emergency room with a chief complaint of palpitations. He denied having any chest pain or shortness of breath. Patient was found to be in A-fib with RVR. Patient was started on metoprolol. Patient does not take any AV faheem blocking agents on an outpatient basis. He remains in atrial fibrillation at the time of examination with a heart rate around [id number]. He did see Dr. Baker in the office on 12/01/2024 and he was noted to be in sinus mechanism at that time DIAGNOSTICS: - EKG reveals A-fib with RVR - Chest xray cardiomegaly without acute pulmonary process. - Laboratory data: WBC 6.84. Hemoglobin 17.2. Platelet count 283. Sodium 138. Potassium 3.9. BUN 17. Creatinine 0.86. Magnesium 1.7. Troponin negative x 3 - Current home cardiac medications include amlodipine 10 mg daily, valsartan 320 mg daily, Plavix 75 mg daily, Lipitor 80 mg daily, Eliquis 5 mg twice a day. - Patient underwent Lexiscan stress test in March 2023 which was negative for ischemia - Echocardiogram performed in January 2021 revealed ejection fraction 55% - Cardiac catheterization history: December 2017 with stenting of the proximal left circumflex 12/15/2024 Patient examined this morning at the bedside. Patient currently denies chest pain or pressure. He denies shortness of breath. He denies any palpitations. He states he is feeling better compared to yesterday. Telemetry reveals atrial fibrillation with heart rate [place] [id number]. PHYSICAL EXAM: VITAL SIGNS: Reviewed. GENERAL: Well-developed in no acute distress. HEENT: Head is normocephalic. Pupils are equal, round. Sclerae anicteric. Mucous membranes of the mouth are moist. Neck supple. No JVD or thyromegaly LUNGS: Respirations even and unlabored. Lungs essentially clear to auscultation bilaterally. HEART:Irregular rate and rhythm. S1 and S2 heard. ABDOMEN: Soft. Nondistended. Nontender. EXTREMITIES: Normal range of motion. No clubbing or cyanosis. Peripheral pulses intact. No lower extremity edema NEUROLOGIC: Awake and alert. Oriented x 3. ASSESSMENT: Palpitations Paroxysmal atrial fibrillation with RVR Coronary artery disease with previous stenting of the circumflex, 12/2017 Hypertension Hyperlipidemia Diabetes Obesity: BMI 34.7 History of obstructive sleep apnea with home use of BiPAP PLAN: Continue current cardiac medications Consider cardioversion/ablation on an outpatient basis Patient may be discharged home today from a cardiac standpoint and follow-up in the office with Dr. Baker Nurse practitioner note has been reviewed by physician. Signing provider agrees with the documented findings, assessment, and plan of care documented by [employer] as a scribe. Objective - Vital Signs Vital signs: Vital Signs Temp 97.4 F L 12/15/24 07:00 Pulse 109 H 12/15/24 07:00 Resp 18 12/15/24 08:00 BP 108/73 12/15/24 07:00 Pulse Ox 100 12/15/24 07:00 FiO2 Intake & Output 12/14/24 12/15/24 12/15/24 18:59 06:59 18:59 Intake Total 118 Balance 118 Weight 112.945 kg Intake: Oral 118 Other: # Voids 2 3 # Bowel Movements 1 - Labs CBC & Chem 7: 12/15/24 05:35 12/15/24 05:35 Labs: Abnormal Lab Results - Last 24 Hours (Table) 12/14/24 12/14/24 12/14/24 Range/Units 00:54 12:21 17:08 RBC (4.40-5.60) 10*6/uL Hct (39.6-50.0) % MPV (9.5-12.2) fL Eosinophils # (0.04-0.35) 10*3/uL Sodium (137-145) mmol/L Glucose (74-99) mg/dL POC Glucose (mg/dL) 139 H 136 H (70-110) mg/dL Hemoglobin A1c (<=6.0) % Triglycerides 615.00 H (0.00-149.00) mg/dL VLDL Cholesterol, Calc 123.00 H (5.00-40.00) mg/dL HDL Cholesterol 35.40 L (40.00-60.00) mg/dL 12/14/24 12/15/24 12/15/24 Range/Units 19:55 05:35 05:35 RBC 5.88 H (4.40-5.60) 10*6/uL Hct 50.2 H (39.6-50.0) % MPV 9.0 L (9.5-12.2) fL Eosinophils # 0.45 H (0.04-0.35) 10*3/uL Sodium (137-145) mmol/L Glucose (74-99) mg/dL POC Glucose (mg/dL) 162 H (70-110) mg/dL Hemoglobin A1c 6.1 H (<=6.0) % Triglycerides (0.00-149.00) mg/dL VLDL Cholesterol, Calc (5.00-40.00) mg/dL HDL Cholesterol (40.00-60.00) mg/dL 12/15/24 12/15/24 Range/Units 05:35 05:57 RBC (4.40-5.60) 10*6/uL Hct (39.6-50.0) % MPV (9.5-12.2) fL Eosinophils # (0.04-0.35) 10*3/uL Sodium 136 L (137-145) mmol/L Glucose 131 H (74-99) mg/dL POC Glucose (mg/dL) 141 H (70-110) mg/dL Hemoglobin A1c (<=6.0) % Triglycerides (0.00-149.00) mg/dL VLDL Cholesterol, Calc (5.00-40.00) mg/dL HDL Cholesterol (40.00-60.00) mg/dL
[2024-12-15] MEDS: busPIRone HCl 5 MG TAB PO SCH (10:31)
--- NOTE | 2024-12-15 16:24 | P.DS ---
Providers Date of admission: 12/14/24 03:36 Attending physician: Lian Alvarado Consults: 12/14/24 02:37 Consult Physician Urgent Consulting Provider: Peter Baker Consult Reason/Comments: afib rvr Do you want consulting provider notified?: Yes Primary care physician: Tina Rondon [place] Hospital Course: Hospital Course: Patient is a 59-year-old male with A-fib, diabetes, hyperlipidemia, hypertension, sleep apnea (BiPAP use), CAD with x 1 stent, depression here for evaluation of palpitations. He was watching tv at rest when he felt palpitations. He denied chest pain, shortness of breath, light headedness, dizziness, focal weakness, vision changes, speech changes, abdominal pain, extremity swelling. On admission: Vitals: Temp 98.2 F, CT 120, RR 18, BP 142/86, O2 saturation 99% on room air Labs: WBC 6.4, hemoglobin 17.2, MCV 84.1, platelet count 283,000, sodium 138, potassium 3.9, BUN 17, creatinine 0.86, glucose 169, magnesium 1.7. Liver enzymes within normal limits. Troponins negative. Coagulation panel within normal limits.. Imaging: EKG independently interpreted shows a atrial fibrillation with a rate of 126 bpm, no ST-T changes, QTc 358 MS. Chest xray showed no acute process. Patient was admitted for the evaluation of A-fib RVR. Cardiac monitoring, metoprolol, home Eliquis, echocardiogram, clopidogrel were ordered. Cardiology was consulted. Adjusted metoprolol dose to 50 mg p.o. twice daily. Also added on dronedarone twice daily. Patient symptoms improved throughout hospital stay and no new complications occurred. Patient is cleared by cardiology for discharge today with metoprolol and dronedarone p.o., and is planning on outpatient cardioversion or ablation. Follow-up echocardiogram on outpatient basis. Patient is advised to follow-up with cardiology and PCP on outpatient basis. Final Diagnosis: #Paroxysmal atrial fibrillation with RVR #Elevated hemoglobin, from dehydration, improved #Diabetes mellitus #Hyperlipidemia #Hypertension #Sleep apnea (BiPAP use) #CAD with x 1 stent #Depression Physical examination: Vital signs reviewed General: non toxic, no distress Derm: no unusual rashes/lesions, warm Head: atraumatic, normocephalic, symmetric Eyes: EOMI, anicteric sclera, pupils equal round reactive to light ENT: Nose and ears atraumatic Neck: No cervical lymphadenopathy, trachea midline, supple Mouth: no lip lesion, mucus membranes moist Cardiovascular: S1S2 irregular, no murmur Lungs: CTA bilateral, no rhonchi, no rales, no accessory muscle use Abdominal: soft, nondistended, nontender to palpation, no guarding Ext: muscle strength 5 out of 5 in all 4 extremities grossly, no gross muscle atrophy, no contractures, positive dorsalis pedis pulse bilateral, no edema Neuro: CN II-XI grossly intact, no gross focal neuro deficits Psych: Alert, oriented, appropriate affect and mood Patient Condition at Discharge: Stable Plan - Discharge Summary New Discharge Prescriptions: New Dronedarone [Multaq] 400 mg PO AC-BID #30 tab Metoprolol Tartrate [Lopressor] 50 mg PO BID #60 tab Continue metFORMIN HCL [Glucophage] 1,000 mg PO DAILY Atorvastatin [Lipitor] 80 mg PO DAILY #90 tab Semaglutide [Ozempic] 0.5 mg SQ MORALES Clopidogrel [Plavix] 75 mg PO DAILY 30 Days #30 tab busPIRone HCL 15 mg PO DAILY Multivitamins, Thera [Multivitamin (formulary)] 1 tab PO DAILY Venlafaxine HCl [Effexor XR] 150 mg PO DAILY busPIRone HCL 7.5 mg PO HS Valsartan [Diovan] 320 mg PO DAILY Apixaban [Eliquis] 5 mg PO BID 30 Days #60 tab metFORMIN HCL [Glucophage] 500 mg PO HS amLODIPine [Norvasc] 10 mg PO DAILY Ubidecarenone [Co Q-10] 300 mg PO DAILY Cholecalciferol (Vitamin D3) [Vitamin D3 (50 Mcg = 2000 Iu)] 50 mcg PO DAILY Discharge Medication List metFORMIN HCL [Glucophage] 1,000 mg PO DAILY 01/22/18 [History] Atorvastatin [Lipitor] 80 mg PO DAILY #90 tab 01/24/18 [Rx] Semaglutide [Ozempic] 0.5 mg SQ MORALES 06/17/23 [History] Valsartan [Diovan] 320 mg PO DAILY 06/17/23 [History] Venlafaxine HCl [Effexor XR] 150 mg PO DAILY 06/17/23 [History] busPIRone HCL 7.5 mg PO HS 06/17/23 [History] Apixaban [Eliquis] 5 mg PO BID 30 Days #60 tab 06/20/23 [Rx] Clopidogrel [Plavix] 75 mg PO DAILY 30 Days #30 tab 06/20/23 [Rx] Cholecalciferol (Vitamin D3) [Vitamin D3 (50 Mcg = 2000 Iu)] 50 mcg PO DAILY 12/14/24 [History] Multivitamins, Thera [Multivitamin (formulary)] 1 tab PO DAILY 12/14/24 [History] Ubidecarenone [Co Q-10] 300 mg PO DAILY 12/14/24 [History] amLODIPine [Norvasc] 10 mg PO DAILY 12/14/24 [History] busPIRone HCL 15 mg PO DAILY 12/14/24 [History] metFORMIN HCL [Glucophage] 500 mg PO HS 12/14/24 [History] Dronedarone [Multaq] 400 mg PO AC-BID #30 tab 12/15/24 [Rx] Metoprolol Tartrate [Lopressor] 50 mg PO BID #60 tab 12/15/24 [Rx] Follow up Appointment(s)/Referral(s): Peter Baker MD [STAFF PHYSICIAN] - 01/12/25 10:00 am (Per office / call office to see if they have any cancellations so you can get in sooner ) Tina Rondon MD [Primary Care Provider] - 1-2 days Patient Instructions/Handouts: A-fib (Atrial Fibrillation) (DC) Activity/Diet/Wound Care/Special Instructions: Please see Signs Cleaner Dr. Baker and PCP Discharge Disposition: HOME SELF-CARE
--- NOTE | 2024-12-15 18:31 | CA ---
Transthoracic Echo Report Name: Orlando Bo Age: 59 Gender: M : 1965 Exam Date: 12/15/2024 07:59 Exam Location: [facility] Ht (in): 71 Wt (lb): 249 Ordering Physician: Michelle Loza Attending/Referring Phys: [id number], Denia Bar Manager Sukumar Bustamante RDCS Procedure CPT: Indications: afib rvr Cardiac Hx: steny Technical Quality: Fair Contrast 1: Total Dose (mL): Contrast 2: Total Dose (mL): MEASUREMENTS (Male / Female) Normal Values 2D ECHO LV Diastolic Diameter PLAX 4.5 cm 4.2 - 5.9 / 3.9 - 5.3 cm LV Systolic Diameter PLAX 3.0 cm IVS Diastolic Thickness 1.2 cm 0.6 - 1.0 / 0.6 - 0.9 cm LVPW Diastolic Thickness 1.1 cm 0.6 - 1.0 / 0.6 - 0.9 cm LV Relative Wall Thickness 0.5 RV Internal Dim ED PLAX 3.4 cm LVOT Diameter 1.9 cm LA Systolic Diameter LX 3.9 cm 3.0 - 4.0 / 2.7 - 3.8 cm LV Diastolic Volume MOD BP 101.0 cm??? 67 - 155 / 56 - 104 cm??? LV Systolic Volume MOD BP 59.7 cm??? 22 - 58 / 19 - 49 cm??? LV Ejection Fraction MOD BP 40.9 % >= 55 % LV Cardiac Index MOD BP 1520.7 cm???/min???m??? LV Diastolic Volume MOD 4C 120.3 cm??? LV Systolic Volume MOD 4C 57.0 cm??? LV Ejection Fraction MOD 4C 52.6 % LV Cardiac Index MOD 4C 2327.6 cm???/min???m??? LV Diastolic Length 4C 8.5 cm LV Systolic Length 4C 7.4 cm LV Diastolic Volume MOD 2C 78.7 cm??? LV Systolic Volume MOD 2C 61.4 cm??? LV Ejection Fraction MOD 2C 22.0 % LV Cardiac Index MOD 2C 637.5 cm???/min???m??? LV Diastolic Length 2C 7.9 cm LV Systolic Length 2C 7.2 cm LA Volume 47.1 cm??? 18 - 58 / 22 - 52 cm??? LA Volume Index 19.5 cm???/m??? 16 - 28 cm???/m??? FINDINGS Left Ventricle Left ventricular ejection fraction is estimated at 55-60 %. Left ventricular cavity size normal. Mild concentric left ventricular hypertrophy. No obvious regional wall motion abnormalities. Right Ventricle Right ventricular dilatation. Reduced right ventricular global systolic function.unable to estimate the right ventricular systolic pressure. Right Atrium Mild right atrial dilatation. Left Atrium Normal left atrial size. Mitral Valve Mild mitral annular calcification. . No mitral stenosis. No mitral regurgitation. Aortic Valve Trileaflet aortic valve. Diffuse thickening (sclerosis) of the aortic valve cusps without reduced excursion.no aortic stenosis. No aortic regurgitation. Tricuspid Valve Structurally normal tricuspid valve. No tricuspid stenosis. Trace tricuspid regurgitation. Pulmonic Valve Structurally normal pulmonic valve. No pulmonic stenosis. Trace pulmonic regurgitation. Pericardium No pericardial effusion. Aorta Normal size aortic root and proximal ascending aorta. CONCLUSIONS Normal LV systolic function Aortic sclerosis with no stenosis or regurgitation Previewed by: Dr. Jeison Roberts MD (Electronically Signed) Final Date: 15 December 2024 18:30
== END 2024-12-15 11:50 | disposition home or self-care (01) ==
LOC: EC 00:33 → 6NMEDSUR 03:36
PROVIDERS: ADMIT Hospitalist; ATTEND Hospitalist
DX: I48.0 Paroxysmal atrial fibrillation (principal); E86.0 Dehydration; I25.10 Atherosclerotic heart disease of native coronary artery without angina pectoris; E11.9 Type 2 diabetes mellitus without complications; I11.9 Hypertensive heart disease without heart failure; E78.5 Hyperlipidemia, unspecified; G47.33 Obstructive sleep apnea (adult) (pediatric); E66.9 Obesity, unspecified; Z68.34 Body mass index [BMI] 34.0-34.9, adult; F32.A Depression, unspecified; Z79.84 Long term (current) use of oral hypoglycemic drugs; Z79.85 Long-term (current) use of injectable non-insulin antidiabetic drugs; Z79.01 Long term (current) use of anticoagulants; Z79.02 Long term (current) use of antithrombotics/antiplatelets; Z79.899 Other long term (current) drug therapy; Z95.5 Presence of coronary angioplasty implant and graft
CPT/HCPCS: 96365; 96366; 96376; 96375; 99291; 36415; 93005; 93306; 80061; 80053; 80048; 83735; 84443; 84484; 85025 ×2; 85610; 85730; 83721; 83036; 71046; G0378 ×2; J3475